=== PATIENT | female | born 1950 | race Caucasian/White ===

== ENCOUNTER 2016-06-02 09:40 | Inpatient (IN) | payer OTHER ==
[2016-06-02 09:54] VITALS: BMI 20.9
--- NOTE | 2016-06-02 10:21 | PDOC ---
History of Present Illness - General History Source: Patient Exam Limitations: No Limitations - History of Present Illness Initial Comments: 06/02/16 10:51 The patient is a 66 year old female with a significant past medical history of hypertension, gastric ulcer, H. pylori, atrial fibrillation, chronic diastolic heart failure, anemia, who presents to the ER with a productive cough and shortness of breath today. The patient visited the ED on Wednesday 05/30 for cough, fever, and body aches and was admitted for observation. The patient received duonebs, vancomycin, and solumedrol. Patient was found to be improved on 05/31 and was discharged. The patient visited Dr. Ramirez office today with the complaint of productive cough and sob and was told to report to the ED for further evaluation. The patient states that she has was coughing throughout the night and bringing up sputum. She also reports vomiting last night and bringing up sputum. She states that her head begins to hurt and her heart begins to race with excessive coughing. The patient reports chills. The patient denies any abdominal pain or chest pain. PCP: Dr. Vargas Social Hx: The patient denies any tobacco use. Surgical Hx: hernia repair <Sakshi Edgar - Last Filed: 06/02/16 11:04> - General History Source: Patient, Old Records Exam Limitations: No Limitations <Azra Gaines - Last Filed: 06/02/16 12:43> - General Chief Complaint: Weakness Stated Complaint: COUGH, SOB Time Seen by Provider: 06/02/16 10:03 Past History <Sakshi Edgar - Last Filed: 06/02/16 11:04> - Past Medical History Anemia: Yes Cardiac Disorders: Yes (Irregular Heart beat) HTN: Yes - Surgical History Abdominal Surgery: Yes (hernia) Cardiac Surgery: Yes (cardiac cath) - Immunization History Immunization Up to Date: No - Psycho/Social/Smoking Cessation Hx Anxiety: No Suicidal Ideation: No Smoking History: Never smoked Have you smoked in the past 12 months: No Number of Cigarettes Smoked Daily: 0 Information on smoking cessation initiated: No Hx Alcohol Use: No Drug/Substance Use Hx: No Substance Use Type: None Hx Substance Use Treatment: No <Azra Gaines - Last Filed: 06/02/16 12:43> - Past Medical History Allergies/Adverse Reactions: Allergies Allergy/AdvReac Type Severity Reaction Status Date / Time Penicillins Allergy Verified 06/02/16 09:55 Home Medications: Ambulatory Orders Furosemide [Lasix -] 20 mg PO DAILY #30 tablet 07/27/15 Metoprolol Succinate [Toprol XL -] 25 mg PO DAILY 11/20/15 Azithromycin 250 mg PO DAILY #5 tablet 05/31/16 Review of Systems - Review of Systems Able to Perform ROS?: Yes Comments:: 06/02/16 10:52 CONSTITUTIONAL: Present: chills Absent: fever, diaphoresis, generalized weakness, malaise, loss of appetite. HEENT: Absent: rhinorrhea, nasal congestion, throat pain, throat swelling, difficulty swallowing, mouth swelling, ear pain, eye pain, visual Changes CARDIOVASCULAR: Absent: chest pain, syncope, palpitations, irregular heart rate, lightheadedness , peripheral edema RESPIRATORY: Present: productive cough, shortness of breath. Absent: dyspnea with exertion, orthopnea, stridor, hemoptysis GASTROINTESTINAL: Absent: abdominal pain, abdominal distension, nausea, vomiting, diarrhea, constipation, melena, hematochezia GENITOURINARY: Absent: dysuria, frequency, urgency, hesitancy, hematuria, flank pain, genital pain MUSCULOSKELETAL: Absent: myalgia, arthralgia, joint swelling SKIN: Absent: rash, itching, pallor HEMATOLOGIC/IMMUNOLOGIC: Absent: easy bleeding, easy bruising, lymphadenopathy, frequent infections ENDOCRINE: Absent: unexplained weight gain, unexplained weight loss, heat intolerance, cold intolerance NEUROLOGIC: Present: headache. Absent: focal weakness or paresthesias, dizziness, unsteady gait, seizure, mental status changes, bladder or bowel incontinence PSYCHIATRIC: Absent: anxiety, depression, suicidal or homicidal ideation, hallucinations. <Sakshi Edgar - Last Filed: 06/02/16 11:04> *Physical Exam - Vital Signs Last Vital Signs Temp Pulse Resp BP Pulse Ox 99.7 F H 106 H 18 98/53 97 06/02/16 09:51 06/02/16 09:51 06/02/16 09:51 06/02/16 09:51 06/02/16 09:51 - Physical Exam Comments: 06/02/16 10:55 GENERAL: Well developed, well nourished. Awake and alert. No acute distress. HEENT: Normocephalic, atraumatic. PERRLA, EOMI. No conjunctival pallor. Sclera are non- icteric. Moist mucous membranes. Oropharynx is clear. NECK: Supple. Full ROM. No JVD. Carotid pulses 2+ and symmetric, without bruits. No thyromegaly. No lymphadenopathy. CARDIOVASCULAR: No murmurs, rubs, or gallops. Distal pulses are 2+ and symmetric. (+)Heart is irregular. PULMONARY: No rhonchi. (+)Crackles heard well throughout left lung base, wheezing. ABDOMINAL: Soft. Non-tender. Non-distended. No rebound or guarding. No organomegaly. Normoactive bowel sounds. MUSCULOSKELETAL Normal range of motion at all joints. No bony deformities or tenderness. No CVA tenderness. EXTREMITIES: No cyanosis. No clubbing. No edema. No calf tenderness. SKIN: Warm and dry. Normal capillary refill. No rashes. No jaundice. NEUROLOGICAL: Alert, awake, appropriate. Cranial nerves 2-12 intact. No deficits to light touch and temperature in face, upper extremities and lower extremities. No motor deficits in the in face, upper extremities and lower extremities. Normoreflexic in the upper and lower extremities. Normal speech. Toes are down- going bilaterally. Gait is normal without ataxia. PSYCHIATRIC: Cooperative. Good eye contact. Appropriate mood and affect. <Sakshi Edgar - Last Filed: 06/02/16 11:04> - Vital Signs Last Vital Signs Temp Pulse Resp BP Pulse Ox 99.7 F H 106 H 18 98/53 97 06/02/16 09:51 06/02/16 09:51 06/02/16 09:51 06/02/16 09:51 06/02/16 09:51 <Azra Gaines - Last Filed: 06/02/16 12:43> ED Treatment Course - LABORATORY CBC & Chemistry Diagram: 06/02/16 10:55 06/02/16 10:55 <Sakshi Edgar - Last Filed: 06/02/16 11:04> - LABORATORY CBC & Chemistry Diagram: 06/02/16 10:55 06/02/16 10:55 <Azra Gaines - Last Filed: 06/02/16 12:43> Medical Decision Making - Medical Decision Making 06/02/16 10:30 66-year-old female with history of hypertension, atrial fibrillation, GI bleed when on Eliquis so not currently on any anticoagulation who was admitted to observation at [facility] 3 days ago with cough and shortness of breath found to have reactive airway disease and discharged on a Z-Lul for presents to the emergency department today with continued cough and difficulty breathing as well as fever at home. She is in A. fib with rapid ventricular rate of 117 and has crackles at the left lung base with diffuse expiratory wheezes Differential diagnosis includes but is not limited to: Pneumonia, reactive airway disease, CHF, ACS, sepsis, dehydration, electrolyte abnormality, toxic/metabolic derangement, anemia Plan: 1. Labs 2. EKG 3. Chest x-ray 4. Rate control 5. Pancultured 6. Antibiotics 7. Observe and reevaluate; the patient will likely need inpatient admission for failed outpatient treatment 06/02/16 12:40 Addendum: Chest x-ray was read as unchanged from prior; on my review I find that the patient has diffuse alveolar infiltrates and questionable right middle lobe infiltrate. Labs are notable for an elevated troponin as well as a progressively worsening BNP as compared to the patient's visit on May 31. The patient has been cultured, and has been ordered Levaquin for failed outpatient treatment of pneumonia. She has also received DuoNeb treatments. I have also ordered Lasix 40 mg IV. Will admit for inpatient treatment. The case was discussed with Dr. Vargas. <Azra Gaines - Last Filed: 06/02/16 12:43> *DC/Admit/Observation/Transfer - Attestations Scribe Attestion: 06/02/16 11:03 Documentation prepared by Sakshi Edgar, acting as medical record librarian for Azra Gaines MD. <Sakshi Edgar - Last Filed: 06/02/16 11:04> - Discharge Dispostion Admit: Yes - Attestations Physician Attestion: 06/02/16 10:33 I, Dr. Azra Gaines, attest that the scribes documentation that appears above has been prepared under my direction and personally reviewed by me in its entirety. I confirmed that the note above accurately reflects all work, treatment, procedures, and medical decision-making performed by me. <Azra Gaines - Last Filed: 06/02/16 12:43> Diagnosis at time of Disposition: SOB (shortness of breath), Atrial fibrillation, CHF (congestive heart failure) , Community acquired bacterial pneumonia - Discharge Dispostion Condition at time of disposition: Stable - Referrals Referrals: Cayetano Vargas MD [Primary Care Provider] -
[2016-06-02] MEDS ORDERED: IPRATROPIUM BR 0.02% 0.5 MG/2.5 ML VIAL.NEB. NEB ONE (10:26)
[2016-06-02] MEDS ORDERED: ALBUTEROL SO4 0.083% IH SOL 2.5 MG/3 ML VIAL.NEB. NEB ONE (10:26)
[2016-06-02 11:08] LABS: BASOPHIL 0.7 % (0-2.0); MCH 22.1 pg (25.7-33.7); MCHC 30.7 g/dl (32.0-36.0); MEAN CELL VOLUME 72.1 fl (80-96); MEAN PLT VOLUME 7.6 fl (7.5-11.1); NEUTROPHILS 78.3 % (42.8-82.8); PLATELET COUNT 186 K/MM3 (134-434)
[2016-06-02 11:29] LABS: ALBUMIN 3.5 g/dl (3.4-5.0); BILIRUBIN,TOTAL 1.1 mg/dL (0.2-1.0); CALCIUM 8.6 mg/dL (8.5-10.1)
[2016-06-02 11:33] LABS: TOT PROT 7.1 g/dl (6.4-8.2); TROPONIN I 0.05 ng/ml (0.00-0.05)
[2016-06-02] MEDS ORDERED: ACETAMINOPHEN 500 MG TABLET (FP) PO ONE (11:35)
[2016-06-02] MEDS ORDERED: ACETAMINOPHEN 325 MG TABLET (FP) ONE (12:00)
[2016-06-02] MEDS ORDERED: LEVOFLOXACIN 750 MG IVPB 150 ML IVPB ONE (12:31)
[2016-06-02] MEDS ORDERED: FUROSEMIDE 40 MG/4 ML INJECTABLE VIAL IVPUSH ONE (12:37)
[2016-06-02] MEDS ORDERED: FUROSEMIDE 40 MG/4 ML INJECTABLE VIAL ONE (12:50)
[2016-06-02] MEDS ORDERED: LEVOFLOXACIN 500 MG IVPB 100 ML IVPB ONE (12:52)
[2016-06-02] MEDS ORDERED: LEVOFLOXACIN 250 MG IVPB 50 ML IVPB ONE (12:52)
--- NOTE | 2016-06-02 14:02 | HP ---
CHIEF COMPLAINT: Cough PCP: Dr Vargas HISTORY OF PRESENT ILLNESS: 66 year old female with pmh of HTN, AFib, diatolic CHF, anemia presented to the ED with c/o cough. the symptoms started on Wednesday with fever, cough and body ache, pt came to ED and was placed on observation and then discharged the next day after improving with a Zpack. Today the symptoms worsened with cough fever with white phlegm, shortness of breath, low grade fever, chills. Pt denies orthopnea, dyspnea on exertion, n/v, palpitation, dizziness, chest pain, diaphoresis, no leg swelling, no recent immobilization or surgery , no generalized, weakness, no rinnhorrhea, no myalgia or arthalgia. ER course was notable for: (1) [place] Recent Travel: none PAST MEDICAL HISTORY: HTN (Pt denies h/o HTN, Toprol XL is for the AFIB according to the patient), AFib pt was on Eliquis which was stopped after GI bleed, epitaxis, anemia ; diastolic CHF, anemia, Gastric ulcer, HPILori PAST SURGICAL HISTORY: 2 miscarriages with D&C Social History: Smoking: denies Alcohol:denies Drugs: denies Family History: none Allergies Penicillins Allergy (Verified 06/02/16 09:55) HOME MEDICATIONS: Medication Instructions Recorded Furosemide [Lasix -] 20 mg PO DAILY #30 tablet 07/27/15 Metoprolol Succinate [Toprol XL -] 25 mg PO DAILY 11/20/15 Azithromycin 250 mg PO DAILY #5 tablet 05/31/16 REVIEW OF SYSTEMS CONSTITUTIONAL: fever, chills, Absent: , diaphoresis, generalized weakness, malaise, loss of appetite, weight change HEENT: Absent: rhinorrhea, nasal congestion, throat pain, throat swelling, difficulty swallowing, mouth swelling, ear pain, eye pain, visual changes CARDIOVASCULAR: irregular heart rate,peripheral edema Absent: chest pain, syncope, palpitations, lightheadedness RESPIRATORY: cough, shortness of breath, Absent: dyspnea with exertion, orthopnea, wheezing, stridor, hemoptysis GASTROINTESTINAL: Absent: abdominal pain, abdominal distension, nausea, vomiting, diarrhea, constipation, melena, hematochezia GENITOURINARY: Absent: dysuria, frequency, urgency, hesitancy, hematuria, flank pain, genital pain MUSCULOSKELETAL: Absent: myalgia, arthralgia, joint swelling, back pain, neck pain SKIN: Absent: rash, itching, pallor HEMATOLOGIC/IMMUNOLOGIC: Absent: easy bleeding, easy bruising, lymphadenopathy, frequent infections ENDOCRINE: Absent: unexplained weight gain, unexplained weight loss, heat intolerance, cold intolerance NEUROLOGIC: Absent: headache, focal weakness or paresthesias, dizziness, unsteady gait, seizure, mental status changes, bladder or bowel incontinence PSYCHIATRIC: Absent: anxiety, depression, suicidal or homicidal ideation, hallucinations. PHYSICAL EXAMINATION GENERAL: Awake, alert, and fully oriented, in no acute distress. HEAD: Normal with no signs of trauma. EYES: Pupils equal, round and reactive to light, extraocular movements intact, sclera anicteric, conjunctiva clear. No lid lag. EARS, NOSE, THROAT: Ears normal, nares patent, oropharynx clear without exudates. Moist mucous membranes. NECK: Normal range of motion, supple without lymphadenopathy, or masses. Positive JVD, positive hepatojugular reflux LUNGS: b/l crackles to auscultation bilaterally. No accessory muscle use. HEART: irregular rate and rhythm, S1 and S2 with sustolic 2/6 murmur, rub or gallop. ABDOMEN: Soft, nontender, not distended, normoactive bowel sounds, no guarding, no rebound, no masses. No hepatomegaly or splenomegaly. MUSCULOSKELETAL: Normal range of motion at all joints. No bony deformities or tenderness. No CVA tenderness. UPPER EXTREMITIES: 2+ pulses, warm, well-perfused. No cyanosis. No clubbing. Cap refill <2 seconds. No peripheral edema. LOWER EXTREMITIES: 2+ pulses, warm, well-perfused. No calf tenderness. No peripheral edema. NEUROLOGICAL: Cranial nerves II-XII intact. Normal speech. Normal gait. PSYCHIATRIC: Cooperative. Good eye contact. Appropriate mood and affect. SKIN: Warm, dry, normal turgor, no rashes or lesions noted. EKg: AFIB w PVC, Poor R wave progression, QTC 471ms CXR: CBC, BMP 06/02/16 10:55 06/02/16 10:55 Since the prior study of 05/31/2016, again noted is the large heart with unfolded aorta, prominent shira and congestive changes. Discrete infiltrate is not seen. If findings do not resolve then further imaging with CT may be of help ASSESSMENT/PLAN: 66 year old femole with pmh of Anemia, HTN, AFIB on Toprol XL but no anticoagulant, Diastolic CHF present with cough, low grade fever, shortness of breath, possible infiltrates in right middle lobe, rapid AFIB, elevated BNP, diffuse crackles in b/l lung. CHF exacerbation, diastolic Received lasix 40mg in ED Started on LAsix 40mg IV BID O2 prn CXR in am Echo cardiology consult Dr Leigh r/o Pneumonia vs Bonchitis received levaquin in ED Started levaquin 700mg IV qd urine for pneumonia antigen CXR in am AFIB w RVR Not on anticoagulant due to prior GI bleed and anemia On Toprol XL Microcytic Anemia likely Iron deficiency Anemia Hbg 8.8 Monitor CBC HTN On Toprol XL CKD Monitor bun, cr monitor intake and output on Lasix FEN Fluid: none Electrolytes: Chemistry in am Nutrition: Low sodium diet Prophylaxis DVT: SCD, consider Lovenox Visit type - Emergency Visit Emergency Visit: Yes ED Registration Date: 06/02/16 Care time: The patient presented to the Emergency Department on the above date and was hospitalized for further evaluation of their emergent condition. - New Patient This patient is new to me today: Yes Date on this admission: 06/02/16 - Critical Care Critical Care patient: No
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
--- NOTE | 2016-06-02 16:17 | PN ---
Teaching Attending Note Name of Resident: Roshan Rincon ATTENDING PHYSICIAN STATEMENT I saw and evaluated the patient. I reviewed the resident's note and discussed the case with the resident. I agree with the resident's findings and plan as documented. SUBJECTIVE: This is a 66-year-old woman with a history of CAD, HTN, gastric ulcer, H. pylori, atrial fibrillation, chronic diastolic heart failure, anemia, who presents to the ER complaining of shortness of breath and productive cough. She had been seen in the ED on 05/31 for cough, fever, and body aches. She was treated with SoluMedrol, Levaquin and DuoNeb. She was discharged on Zithromax. She was advised by her PCP, Dr. Vargas, to return to the ER today. OBJECTIVE: Last Vital Signs Temp Pulse Resp BP Pulse Ox 100.9 F H 99 H 20 98/53 97 06/02/16 10:25 06/02/16 10:25 06/02/16 10:25 06/02/16 09:51 06/02/16 09:51 HEART: Irregularly irregular, tachycardic, (+) 3/6 systolic murmur LUNGS: Bilateral rales and wheezes ABDOMEN: Soft, non-tender, non-distended, normal BS EXTREMITIES: No edema ASSESSMENT AND PLAN: This is a 66-year-old woman with a history of HTN, gastric ulcer, H. pylori, atrial fibrillation, chronic diastolic heart failure, anemia who came to the ER on 05/31 with fever, cough, body aches. She was diagnosed with URI and possible pneumonia, treated with Levaquin, SoluMedrol, DuoNeb and discharged on Zithromax. She returns today with the same complaints and worse shortness of breath. Chest x-ray shows cardiomegaly and congestive changes. 1. Acute on chronic diastolic heart failure - Lasix IV - Monitor intake and output, weight - Repeat CXR in AM - Echocardiogram 2. Acute bronchitis, possible pneumonia - Levaquin, DuoNeb 3. Permanent atrial fibrillation - Continue Toprol XL - Not on anticoagulation secondary to previous GI bleed/AVMs 4. CAD - Monitor on telemetry - Serial troponins - Nuclear stress in Feb 2016 showed poor exercise capacity, moderate area of mild septal ischemia - Continue Toprol XL 5. Hypertension - Continue Toprol XL 6. Iron-deficiency anemia - Hemoglobin stable - Monitor hemoglobin
[2016-06-02] MEDS: FUROSEMIDE 40 MG/4 ML INJECTABLE VIAL IVPUSH SCH (16:33)
[2016-06-02 21:49] LABS: URINE APPEARANCE CLEAR; URINE BILIRUBIN NEGATIVE (NEGATIVE); URINE COLOR STRAW; URINE GLUCOSE (UA) NEGATIVE (NEGATIVE); URINE KETONE NEGATIVE (NEGATIVE); URINE LEUK ESTERASE NEGATIVE (NEGATIVE); URINE NITRITE NEGATIVE (NEGATIVE); URINE PROTEIN NEGATIVE (NEGATIVE); URINE UROBILINOGEN NEGATIVE E.U./dl (0.2-1.0)
[2016-06-02 21:53] LABS: URINE BLOOD 1+ (NEGATIVE)
[2016-06-02 21:56] LABS: URINE RBC 5 /hpf (0-3)
[2016-06-02 21:58] LABS: TROPONIN I 0.02 ng/ml (0.00-0.05)
[2016-06-03] MEDS: FUROSEMIDE 40 MG/4 ML INJECTABLE VIAL IVPUSH SCH ×2 (06:00→16:33)
[2016-06-03 07:41] LABS: MCH 22.1 pg (25.7-33.7); MCHC 30.8 g/dl (32.0-36.0); MEAN CELL VOLUME 71.8 fl (80-96); MEAN PLT VOLUME 7.7 fl (7.5-11.1); PLATELET COUNT 167 K/MM3 (134-434); RDW 21.6 % (11.6-15.6); WHITE BLOOD COUNT 3.5 K/mm3 (4.0-10.0)
[2016-06-03] MEDS ORDERED: METOPROLOL TARTRATE 5 MG/5 ML VIAL IVPUSH ONE (07:43)
[2016-06-03] MEDS ORDERED: METOPROLOL SUCCINATE 25 MG TAB.SR.24H (FP) ONE ×2 (07:47→17:51)
[2016-06-03] MEDS: METOPROLOL SUCCINATE 25 MG TAB.SR.24H (FP) PO SCH ×2 (07:56→09:41)
[2016-06-03 07:57] LABS: INR 1.31 (0.82-1.09); PROTHROMBIN TIME (PATIENT) 14.5 SEC (9.98-11.88)
[2016-06-03 08:04] LABS: CALCIUM 8.2 mg/dL (8.5-10.1); MAGNESIUM 1.9 mg/dL (1.8-2.4)
[2016-06-03 08:18] LABS: CREATININE 0.8 mg/dL (0.55-1.02); THYROID STIMULATING HORMONE 2.51 uIU/ml (0.358-3.74); TROPONIN I 0.02 ng/ml (0.00-0.05)
[2016-06-03 09:58] LABS: ANISOCYTOSIS 2+; HYPOCHROMIA 1+; MICROCYTOSIS 1+; OVALOCYTES 1+; POIKILOCYTOSIS 1+
[2016-06-03 10:00] LABS: POLYCHROMASIA 1+
--- NOTE | 2016-06-03 17:05 | EKG ---
Test Reason : Blood Pressure : / mmHG Vent. Rate : 109 BPM Atrial Rate : 107 BPM P-R Int : 000 ms QRS Dur : 082 ms QT Int : 350 ms P-R-T Axes : 000 132 087 degrees QTc Int : 471 ms ATRIAL FIBRILLATION WITH RAPID VENTRICULAR RESPONSE RIGHT AXIS DEVIATION ABNORMAL ECG WHEN COMPARED WITH ECG OF 31-MAY-2016 16:36, QUESTIONABLE CHANGE IN QRS AXIS NONSPECIFIC T WAVE ABNORMALITY NO LONGER EVIDENT IN INFERIOR LEADS Confirmed by ILIANA PINA MD ([id number]) on 06/03/2016 5:05:25 PM Referred By: Overread By: ILIANA PINA MD
[2016-06-03] MEDS ORDERED: METOPROLOL TARTRATE 25 MG TABLET (FP) PO ONE (17:48)
--- NOTE | 2016-06-03 17:51 | PN ---
Physical Exam: SUBJECTIVE: Patient seen and examined pt is feeling comfortable now Had one episode of palpitation and shortness of breath this morning which resume with metoprol IV and PO Pt had another episode this afternoon which resolved spontaneously No fever, chills, no n/v Pt has moderate cough with white sputum OBJECTIVE: Vital Signs Period Temp Pulse Resp BP Sys/Hinojosa Pulse Ox Last 24 Hr 98 F-99.5 F 90-156 18-20 100-121/54-65 98-100 GENERAL: Awake, alert, and fully oriented, in no acute distress. HEAD: Normal with no signs of trauma. EARS, NOSE, THROAT: Ears normal, nares patent, oropharynx clear without exudates. Moist mucous membranes. NECK: Normal range of motion, supple without lymphadenopathy, or masses. Positive JVD, positive hepatojugular reflux LUNGS: b/l crackles to auscultation bilaterally. No accessory muscle use. HEART: irregular rate and rhythm, S1 and S2 with sustolic 2/6 murmur, rub or gallop. ABDOMEN: Soft, nontender, not distended, normoactive bowel sounds, no guarding, no rebound, no masses. No hepatomegaly or splenomegaly. MUSCULOSKELETAL: Normal range of motion at all joints. No bony deformities or tenderness. No CVA tenderness. UPPER EXTREMITIES: 2+ pulses, warm, well-perfused. No cyanosis. No clubbing. Cap refill <2 seconds. No peripheral edema. LOWER EXTREMITIES: 2+ pulses, warm, well-perfused. No calf tenderness. No peripheral edema. NEUROLOGICAL: Normal speech. Normal gait. PSYCHIATRIC: Cooperative. Good eye contact. Appropriate mood and affect. SKIN: Warm, dry, normal turgor, no rashes or lesions noted. Laboratory Results - last 24 hr 06/02/16 06/02/16 06/03/16 19:20 20:51 05:35 WBC 3.5 L D RBC 4.07 Hgb 9.0 L Hct 29.2 L MCV 71.8 L MCHC 30.8 L RDW 21.6 H Plt Count 167 MPV 7.7 Polychromasia 1+ Hypochromic-Microcytic 1+ Poikilocytosis 1+ Anisocytosis 2+ Microcytosis 1+ Macrocytosis 1+ Ovalocytes 1+ Morphology Comment Slide scanned INR PTT (Actin FS) Sodium Potassium Chloride Carbon Dioxide Anion Gap BUN Creatinine Random Glucose Hemoglobin A1c % Calcium Phosphorus Magnesium Creatine Kinase 115 Troponin I 0.02 Triglycerides Cholesterol Total LDL Cholesterol HDL Cholesterol TSH Urine Color Straw Urine Appearance Clear Urine pH 6.0 D Ur Specific [place] 1.005 Urine Protein Negative Urine Glucose (UA) Negative Urine Ketones Negative Urine Blood 1+ H Urine Nitrite Negative Urine Bilirubin Negative Urine Urobilinogen Negative Ur Leukocyte Esterase Negative Urine RBC 5 Urine WBC None 06/03/16 06/03/16 06/03/16 05:35 05:35 05:35 WBC RBC Hgb Hct MCV MCHC RDW Plt Count MPV Polychromasia Hypochromic-Microcytic Poikilocytosis Anisocytosis Microcytosis Macrocytosis Ovalocytes Morphology Comment INR 1.31 H PTT (Actin FS) Sodium 137 Potassium 3.5 Chloride 102 Carbon Dioxide 26 Anion Gap 9 BUN 13 Creatinine 0.8 Random Glucose 91 Hemoglobin A1c % 4.7 L Calcium 8.2 L Phosphorus 3.0 Magnesium 1.9 Creatine Kinase 74 Troponin I 0.02 Triglycerides 67 D Cholesterol 110 Total LDL Cholesterol 63 HDL Cholesterol 45 TSH 2.51 D Urine Color Urine Appearance Urine pH Ur Specific [place] Urine Protein Urine Glucose (UA) Urine Ketones Urine Blood Urine Nitrite Urine Bilirubin Urine Urobilinogen Ur Leukocyte Esterase Urine RBC Urine WBC 06/03/16 05:35 WBC RBC Hgb Hct MCV MCHC RDW Plt Count MPV Polychromasia Hypochromic-Microcytic Poikilocytosis Anisocytosis Microcytosis Macrocytosis Ovalocytes Morphology Comment INR PTT (Actin FS) 32.5 Sodium Potassium Chloride Carbon Dioxide Anion Gap BUN Creatinine Random Glucose Hemoglobin A1c % Calcium Phosphorus Magnesium Creatine Kinase Troponin I Triglycerides Cholesterol Total LDL Cholesterol HDL Cholesterol TSH Urine Color Urine Appearance Urine pH Ur Specific [place] Urine Protein Urine Glucose (UA) Urine Ketones Urine Blood Urine Nitrite Urine Bilirubin Urine Urobilinogen Ur Leukocyte Esterase Urine RBC Urine WBC Active Medications Generic Name Dose Route Start Last Admin Trade Name Freq PRN Reason Stop Dose Admin Albuterol/Ipratropium 1 amp 06/02/16 14:56 Duoneb - NEB Q4H PRN SHORTNESS OF BREATH Furosemide 40 mg 06/02/16 16:00 06/03/16 16:33 Lasix Injection - IVPUSH 40 mg BID@0600,1600 [facility] Administration Levofloxacin 150 mls @ 100 mls/hr 06/04/16 10:00 Levaquin 750 Mg Premixed Ivpb - IVPB Q2D@1000 BR[facility] Metoprolol Succinate 50 mg 06/04/16 10:00 Toprol Xl - PO DAILY [facility] Metoprolol Tartrate 25 mg 06/03/16 17:48 Lopressor - PO 06/03/16 17:49 ONCE ONE CBC, BMP 06/03/16 05:35 06/03/16 05:35 CXR 06/02/16: Since the prior study of 05/31/2016, again noted is the large heart with unfolded aorta, prominent shira and congestive changes. Discrete infiltrate is not seen. If findings do not resolve then further imaging with CT may be of help ASSESSMENT/PLAN: 66 year old femole with pmh of Anemia, HTN, AFIB on Toprol XL but no anticoagulant, Diastolic CHF present with cough, low grade fever, shortness of breath, possible infiltrates in right middle lobe, rapid AFIB, elevated BNP, diffuse crackles in b/l lung. CHF exacerbation, diastolic Received lasix 40mg in ED on LAsix 40mg IV BID O2 prn CXR in am Echo pending result intake and output Daily weight cardiology consult Dr Liegh r/o Pneumonia vs Bonchitis received levaquin in ED Started levaquin 700mg IV QOd urine for pneumonia antigen pending AFIB w RVR Not on anticoagulant due to prior GI bleed and anemia Multiple episodes of tachycardia HR 140's 150's Received Lopressor 5 IV once this morning Will increase dose of Toprol Xl in AM to 50mg po since pt continue to have recurrent tachyarrhythmia Metoprolol 25mg once now On Toprol XL 50 po daily starting in am Close Monitoring of BP Microcytic Anemia likely Iron deficiency Anemia Hbg 9 Monitor CBC prior iron studies with low iron, low ferritin and high/normal TIBC HTN On Toprol XL CKD Monitor bun, cr monitor intake and output on Lasix FEN Fluid: none Electrolytes: Chemistry in am Nutrition: Low sodium diet Prophylaxis DVT: SCD, Lovenox SQ Visit type - Emergency Visit Emergency Visit: Yes ED Registration Date: 06/02/16 Care time: The patient presented to the Emergency Department on the above date and was hospitalized for further evaluation of their emergent condition. - New Patient This patient is new to me today: No - Critical Care Critical Care patient: No
--- NOTE | 2016-06-03 19:21 | PN ---
Teaching Attending Note Name of Resident: Roshan Rincon ATTENDING PHYSICIAN STATEMENT I saw and evaluated the patient. I reviewed the resident's note and discussed the case with the resident. I agree with the resident's findings and plan as documented. SUBJECTIVE: no fever or chills, feels better . had palpitations this Am. OBJECTIVE: NAD CV : irreg irreg . 3/6 SM at [facility] LUngs : CTAB ext : no edema ASSESSMENT AND PLAN: 66 y/o lady with h/o HTN, AFib, diatolic CHF, who presneted with palpitations and SOB . she was found to have acute D CHF and RVR 1- Afib with RVR . received IV pushes this am . currently still HR not controlled. ( 140s , 150s ) - give 25 mg of lopressor po - increase am toprol to 50 mg - monitor BP . - echo reviewed. small pericardial effusion - not on AC due to previous GI bleed, she understands that CHADSVACS score of at least 4 with high risk for stroke 2- acute D CHF . due to A fib with RVR . - cont IV lasix BID 3- recent URI , now fever , possible R LL infiltrate . day 2 of levaquin. will cont for 3 more days for possible PNA dispo : HLOC
[2016-06-04] MEDS: FUROSEMIDE 40 MG/4 ML INJECTABLE VIAL IVPUSH SCH ×2 (06:10→17:04)
[2016-06-04 08:35] LABS: CALCIUM 8.4 mg/dL (8.5-10.1)
[2016-06-04 08:38] LABS: CREATININE 0.9 mg/dL (0.55-1.02); PHOSPHOROUS 3.6 mg/dL (2.5-4.9)
[2016-06-04] MEDS: LEVOFLOXACIN 750 MG IVPB 150 ML IVPB SCH (09:45)
[2016-06-04] MEDS: POTASSIUM CHLORIDE 40 MEQ/30 ML UNIT DOSE CUP PO SCH ×2 (09:46→22:32)
[2016-06-04] MEDS ORDERED: DIGOXIN 0.5 MG/2 ML AMPUL IVPUSH ONE ×3 (09:59→22:00)
[2016-06-04] MEDS ORDERED: METOPROLOL SUCCINATE 25 MG TAB.SR.24H (FP) PO SCH (10:00)
[2016-06-04] MEDS ORDERED: METOPROLOL SUCCINATE 50 MG TAB.SR.24H (FP) PO SCH (10:00)
--- NOTE | 2016-06-04 15:46 | EKG ---
Test Reason : Blood Pressure : / mmHG Vent. Rate : 071 BPM Atrial Rate : 053 BPM P-R Int : 000 ms QRS Dur : 080 ms QT Int : 398 ms P-R-T Axes : 000 125 092 degrees QTc Int : 432 ms ATRIAL FIBRILLATION WITH PREMATURE VENTRICULAR OR ABERRANTLY CONDUCTED COMPLEXES LEFT POSTERIOR FASCICULAR BLOCK NONSPECIFIC ST AND T WAVE ABNORMALITY , PROBABLY DIGITALIS EFFECT ABNORMAL ECG WHEN COMPARED WITH ECG OF 03-JUN-2016 07:47, VENT. RATE HAS DECREASED BY 38 BPM Confirmed by AXEL VAUGHAN MD ([id number]) on 06/04/2016 3:46:41 PM Referred By: MANDO BECERRA Overread By: AXEL VAUGHAN MD
--- NOTE | 2016-06-04 16:25 | PN ---
Teaching Attending Note Name of Resident: Roshan Rincon ATTENDING PHYSICIAN STATEMENT I saw and evaluated the patient. I reviewed the resident's note and discussed the case with the resident. I agree with the resident's findings and plan as documented. SUBJECTIVE: feels better today , No SOB . cough . has no PC . OBJECTIVE: NAD , pleasant and cooperative CV: irreg irreg . 3/6 SM at [facility] Lungs: bilateral crackles Ext: no edema ASSESSMENT AND PLAN: 66 y/o lady with h/o HTN, AFib, diatolic CHF, who presneted with palpitations and SOB . she was found to have acute D CHF and RVR 1- Afib with RVR . Rate ws still uncontrolled at time of evaluation with borderline BP - load with digoxin, then daily 0125 mg - decrease toprol from 50 mg to 25 mg - monitor BP - not on AC due to previous GI bleed, she understands that CHADSVACS score of at least 4 with high risk for stroke 2- Acute D CHF . due to A fib with RVR . - cont IV lasix BID. as she still has significan crackles. will reevaluate tomorrow for switch to po 3- Possible R LL infiltrate . day 3/5 of levaquin. dispo : HLOC i
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
--- NOTE | 2016-06-04 18:52 | PN ---
Physical Exam: SUBJECTIVE: Patient seen and examined Pt has an episode of lightness with hypotension no chest pain, palpitation, nausea, vomiting no fever, chills, cough. OBJECTIVE: Vital Signs Period Temp Pulse Resp BP Sys/Hinojosa Pulse Ox Last 24 Hr 98 F-100 F 75-98 18-22 83-101/46-66 98-99 GENERAL: Awake, alert, and fully oriented, in no acute distress. HEAD: Normal with no signs of trauma. EARS, NOSE, THROAT: Ears normal, nares patent, oropharynx clear without exudates. Moist mucous membranes. NECK: Normal range of motion, supple without lymphadenopathy, or masses. Positive JVD, positive hepatojugular reflux LUNGS: slight improvement with b/l crackles to auscultation bilaterally. No accessory muscle use. HEART: irregular rate and rhythm, S1 and S2 with sustolic 2/6 murmur, rub or gallop. ABDOMEN: Soft, nontender, not distended, normoactive bowel sounds, no guarding, no rebound, no masses. No hepatomegaly or splenomegaly. MUSCULOSKELETAL: Normal range of motion at all joints. No bony deformities or tenderness. No CVA tenderness. UPPER EXTREMITIES: 2+ pulses, warm, well-perfused. No cyanosis. No clubbing. Cap refill <2 seconds. No peripheral edema. LOWER EXTREMITIES: 2+ pulses, warm, well-perfused. No calf tenderness. No peripheral edema. NEUROLOGICAL: Normal speech. Normal gait. PSYCHIATRIC: Cooperative. Good eye contact. Appropriate mood and affect. SKIN: Warm, dry, normal turgor, no rashes or lesions noted. Laboratory Results - last 24 hr 06/04/16 06/04/16 06:00 15:53 Sodium 132 L Potassium 3.2 L Chloride 99 Carbon Dioxide 29 Anion Gap 4 L BUN 11 Creatinine 0.9 POC Glucometer 108 Random Glucose 104 Calcium 8.4 L Phosphorus 3.6 Magnesium 2.0 Active Medications Generic Name Dose Route Start Last Admin Trade Name Freq PRN Reason Stop Dose Admin Albuterol/Ipratropium 1 amp 06/02/16 14:56 Duoneb - NEB Q4H PRN SHORTNESS OF BREATH Digoxin 0.125 mg 06/05/16 10:00 Lanoxin - PO DAILY [facility] Digoxin 0.25 mg 06/04/16 22:00 Lanoxin Injection - IVPUSH 06/04/16 22:01 ONCE ONE Furosemide 40 mg 06/02/16 16:00 06/04/16 17:04 Lasix Injection - IVPUSH Not Given BID@0600,1600 [facility] Levofloxacin 150 mls @ 100 mls/hr 06/04/16 10:00 06/04/16 09:45 Levaquin 750 Mg Premixed Ivpb - IVPB 100 mls/hr Q2D@1000 [facility] Administration Metoprolol Succinate 25 mg 06/05/16 10:00 Toprol Xl - PO DAILY [facility] Potassium Chloride 40 meq 06/04/16 10:00 06/04/16 09:46 Kcl Oral Solution - PO 06/04/16 22:01 40 meq BID BR[facility]ANY Administration CBC, BMP 06/03/16 05:35 06/04/16 06:00 CXR 06/02/16: Since the prior study of 05/31/2016, again noted is the large heart with unfolded aorta, prominent shira and congestive changes. Discrete infiltrate is not seen. If findings do not resolve then further imaging with CT may be of help Echo; LV size, function normal, mild concentric LVH, no wall motion abnormality , RA, LA mildly dilated, moderate to severe TR, RVSP 40-50mghg, Mild pulm HTN ASSESSMENT/PLAN: 66 year old female with pmh of Anemia, HTN, AFIB on Toprol XL but no anticoagulant, Diastolic CHF present with cough, low grade fever, shortness of breath, possible infiltrates in right middle lobe, rapid AFIB, elevated BNP, diffuse crackles in b/l lung. CHF exacerbation, diastolic Received lasix 40mg in ED on LAsix 40mg IV BID O2 prn Echo done intake and output Daily weight cardiology consult Dr Leigh r/o Pneumonia vs Bonchitis received levaquin in ED Started levaquin 700mg IV QOd urine for pneumonia antigen pending AFIB w RVR Not on anticoagulant due to prior GI bleed and anemia HAd Multiple episodes of tachycardia HR 140's 150's yesterday, 25mg of Lopressor given overnight with with increase to toprol XL to 37.5 mg PO qd Pt was found to have SBP is 90's for most of the night So to prevent hypotension we will decreased Toprol XL back to 25 and start the pt on Digoxin Loading dose fo Digoxin 50mg IV, 25 mg IV once in 6 hours X2 Digoxin 0.125mg Po daily Close Monitoring of BP Microcytic Anemia likely Iron deficiency Anemia Hbg 9 Monitor CBC prior iron studies with low iron, low ferritin and high/normal TIBC HTN On Toprol XL CKD Monitor bun, cr monitor intake and output on Lasix Hypokalemia K 3.2 KCL 40 meq PO BID x2 doses repeat bmp in am FEN Fluid: none Electrolytes: Chemistry in am Nutrition: Low sodium diet Prophylaxis DVT: SCD, Lovenox SQ Visit type - Emergency Visit Emergency Visit: Yes ED Registration Date: 06/02/16 Care time: The patient presented to the Emergency Department on the above date and was hospitalized for further evaluation of their emergent condition. - New Patient This patient is new to me today: No - Critical Care Critical Care patient: No
[2016-06-05] MEDS: FUROSEMIDE 40 MG/4 ML INJECTABLE VIAL IVPUSH SCH ×2 (06:35→16:49)
--- NOTE | 2016-06-05 07:05 | PN ---
Physical Exam: SUBJECTIVE: Patient seen and examined Pt denies chest pain, shortness of breath only one episode of palpitations overnight fort a few seconds No n/v, no lightheadedness Pt is still having cough with white phlegm Pt also complained of difficulty sleeping and havin strange dreams and sensation overnight OBJECTIVE: Vital Signs Period Temp Pulse Resp BP Sys/Hinojosa Pulse Ox Last 24 Hr 98 F-98.3 F 75-98 18-22 83-101/46-66 96-98 GENERAL: Awake, alert, and fully oriented, in no acute distress. HEAD: Normal with no signs of trauma. EARS, NOSE, THROAT: Ears normal, nares patent, oropharynx clear without exudates. Moist mucous membranes. NECK: Normal range of motion, supple without lymphadenopathy, or masses. Positive JVD, positive hepatojugular reflux LUNGS: exp wheezes and b/l crackles to auscultation bilaterally. No accessory muscle use. HEART: irregular rate and rhythm, S1 and S2 with systolic 2/6 murmur, rub or gallop. ABDOMEN: Soft, nontender, not distended, normoactive bowel sounds, no guarding, no rebound, no masses. No hepatomegaly or splenomegaly. MUSCULOSKELETAL: Normal range of motion at all joints. No bony deformities or tenderness. No CVA tenderness. UPPER EXTREMITIES: 2+ pulses, warm, well-perfused. No cyanosis. No clubbing. Cap refill <2 seconds. No peripheral edema. LOWER EXTREMITIES: 2+ pulses, warm, well-perfused. No calf tenderness. No peripheral edema. NEUROLOGICAL: Normal speech. Normal gait. PSYCHIATRIC: Cooperative. Good eye contact. Appropriate mood and affect. SKIN: Warm, dry, normal turgor, no rashes or lesions noted. Laboratory Results - last 24 hr 06/04/16 06/04/16 06:00 15:53 Sodium 132 L Potassium 3.2 L Chloride 99 Carbon Dioxide 29 Anion Gap 4 L BUN 11 Creatinine 0.9 POC Glucometer 108 Random Glucose 104 Calcium 8.4 L Phosphorus 3.6 Magnesium 2.0 Active Medications Generic Name Dose Route Start Last Admin Trade Name Freq PRN Reason Stop Dose Admin Albuterol/Ipratropium 1 amp 06/02/16 14:56 Duoneb - NEB Q4H PRN SHORTNESS OF BREATH Digoxin 0.125 mg 06/05/16 10:00 Lanoxin - PO DAILY [facility] Furosemide 40 mg 06/02/16 16:00 06/05/16 06:35 Lasix Injection - IVPUSH 40 mg BID@0600,1600 [facility] Administration Levofloxacin 150 mls @ 100 mls/hr 06/04/16 10:00 06/04/16 09:45 Levaquin 750 Mg Premixed Ivpb - IVPB 100 mls/hr Q2D@1000 [facility] Administration Metoprolol Succinate 25 mg 06/05/16 10:00 Toprol Xl - PO DAILY [facility] CBC, BMP 06/03/16 05:35 CXR 06/02/16: Since the prior study of 05/31/2016, again noted is the large heart with unfolded aorta, prominent shira and congestive changes. Discrete infiltrate is not seen. If findings do not resolve then further imaging with CT may be of help Echo; LV size, function normal, mild concentric LVH, no wall motion abnormality , RA, LA mildly dilated, moderate to severe TR, RVSP 40-50mghg, Mild pulm HTN ASSESSMENT/PLAN: 66 year old female with pmh of Anemia, HTN, AFIB on Toprol XL but no anticoagulant, Diastolic CHF present with cough, low grade fever, shortness of breath, possible infiltrates in right middle lobe, rapid AFIB, elevated BNP, diffuse crackles in b/l lung. CHF exacerbation, diastolic Received lasix 40mg in ED on LAsix 40mg IV BID O2 prn Echo done intake and output Daily weight cardiology consult Dr Leigh r/o Pneumonia vs Bonchitis received levaquin in ED on levaquin 700mg IV QOd urine for pneumonia antigen negative Blood culture and urine culture negative so far AFIB w RVR Not on anticoagulant due to prior GI bleed and anemia HAd Multiple episodes of tachycardia HR 140's 150's yesterday, 25mg of Lopressor given overnight with with increase to toprol XL to 37.5 mg PO qd Pt was found to have SBP is 90's for most of the night OnToprol XL 25 mg, decrease to 12.5 mg PO on Digoxin 0.125mg Po daily, was loaded yesterday, first dose this morning awaiting dig level this am Pt has some episode of bradycardia overnight, the lowest one is 46 while sleeping. a few 1-2 second pauses Monitor HR and BP Microcytic Anemia likely Iron deficiency Anemia Hbg 9 Monitor CBC prior iron studies with low iron, low ferritin and high/normal TIBC HTN On Toprol XL CKD Monitor bun, cr monitor intake and output on Lasix Hypokalemia K 3.2 yesterday KCL 40 meq PO BID x2 doses given yesterday awaiting bmp result FEN Fluid: none Electrolytes: Chemistry in am Nutrition: Low sodium diet Prophylaxis DVT: SCD, Lovenox SQ Disposition: keep in telemetry Visit type - Emergency Visit Emergency Visit: Yes ED Registration Date: 06/02/16 Care time: The patient presented to the Emergency Department on the above date and was hospitalized for further evaluation of their emergent condition. - New Patient This patient is new to me today: No - Critical Care Critical Care patient: No
[2016-06-05 07:47] LABS: ANION GAP 6 (8-16); CALCIUM 8.8 mg/dL (8.5-10.1); CO2 27 mmol/L (21-32); GLUCOSE,RANDOM 96 mg/dL (74-106); MAGNESIUM 2.2 mg/dL (1.8-2.4)
[2016-06-05 08:04] LABS: CREATININE 0.8 mg/dL (0.55-1.02); DIGOXIN LEVEL 0.4762 ng/ml (0.8-2.0); TROPONIN I < 0.02 ng/ml (0.00-0.05)
[2016-06-05] MEDS ORDERED: METOPROLOL SUCCINATE 25 MG TAB.SR.24H (FP) PO SCH (10:00)
[2016-06-05] MEDS: DIGOXIN 0.125 MG TABLET (FP) PO SCH (10:08)
[2016-06-05] MEDS: METOPROLOL SUCCINATE 25 MG TAB.SR.24H (FP) PO SCH (10:10)
[2016-06-05] MEDS ORDERED: ALBUTEROL SO4 2.5/IPRATROPIUM 0.5 INH SOL 3 ML VIAL.NEB. NEB ONE (10:41)
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
--- NOTE | 2016-06-05 17:12 | PN ---
Teaching Attending Note Name of Resident: Roshan Rincon ATTENDING PHYSICIAN STATEMENT I saw and evaluated the patient. I reviewed the resident's note and discussed the case with the resident. I agree with the resident's findings and plan as documented. SUBJECTIVE: no fever ro chills, feels tired. no light headedness OBJECTIVE: NAD , pleasant and cooperative CV: irreg irreg . 3/6 SM at LLSB Lungs: bilateral crackles , worse than yesterday Ext: no edema ASSESSMENT AND PLAN: 66 y/o lady with h/o HTN, AFib, diatolic CHF, who presneted with palpitations and SOB . she was found to have acute D CHF and RVR 1- A fib with RVR . Rate has improved on tele but BLood pressure is on lower side. - toprol decreased to 12.5 . - cont Dig 0.125 mg daily - monitor BP carefully as pt is symptomatic - not on AC due to previous GI bleed, she understands that CHADSVACS score of at least 4 with high risk for stroke 2- Acute D CHF . due to A fib with RVR . - cont IV lasix BID. as she still has significant crackles, and worse than yesterday ,. UOP is not being documented correctly . 3- Possible R LL infiltrate . tomorrow last dose of levaquin then dc dispo : HLOC
[2016-06-06 08:27] LABS: CALCIUM 8.8 mg/dL (8.5-10.1)
[2016-06-06 08:29] LABS: CREATININE 0.8 mg/dL (0.55-1.02)
--- NOTE | 2016-06-06 08:32 | PN ---
Physical Exam: SUBJECTIVE: Patient seen and examined Pt said she feeling down More more dizziness but just tired and down with low energy no fever, chills, no n/v, no chest or palpitation, no sob, low lower ext edema OBJECTIVE: Vital Signs Period Temp Pulse Resp BP Sys/Hinojosa Pulse Ox Last 24 Hr 97.4 F-98 F 82-92 16-20 91-101/54-67 98 GENERAL: Awake, alert, and fully oriented, in no acute distress. HEAD: Normal with no signs of trauma. EARS, NOSE, THROAT: Ears normal, nares patent, oropharynx clear without exudates. Moist mucous membranes. NECK: Normal range of motion, supple without lymphadenopathy, or masses. Positive JVD, positive hepatojugular reflux LUNGS: b/l crackles to auscultation bilaterally. No accessory muscle use. HEART: irregular rate and rhythm, S1 and S2 with systolic 3/6 murmur, rub or gallop. ABDOMEN: Soft, nontender, not distended, normoactive bowel sounds, no guarding, no rebound, no masses. No hepatomegaly or splenomegaly. MUSCULOSKELETAL: Normal range of motion at all joints. No bony deformities or tenderness. No CVA tenderness. UPPER EXTREMITIES: 2+ pulses, warm, well-perfused. No cyanosis. No clubbing. Cap refill <2 seconds. No peripheral edema. LOWER EXTREMITIES: 2+ pulses, warm, well-perfused. No calf tenderness. No peripheral edema. NEUROLOGICAL: Normal speech. Normal gait. PSYCHIATRIC: Cooperative. Good eye contact. Appropriate mood and affect. SKIN: Warm, dry, normal turgor, no rashes or lesions noted. Laboratory Results - last 24 hr 06/06/16 06:00 Sodium 139 Potassium 4.2 Chloride 103 Carbon Dioxide 28 Anion Gap 8 BUN 14 Creatinine 0.8 Random Glucose 94 Calcium 8.8 Active Medications Generic Name Dose Route Start Last Admin Trade Name Freq PRN Reason Stop Dose Admin Albuterol/Ipratropium 1 amp 06/02/16 14:56 Duoneb - NEB Q4H PRN SHORTNESS OF BREATH Digoxin 0.125 mg 06/05/16 10:00 06/05/16 10:08 Lanoxin - PO 0.125 mg DAILY [facility] Administration Levofloxacin 150 mls @ 100 mls/hr 06/04/16 10:00 06/04/16 09:45 Levaquin 750 Mg Premixed Ivpb - IVPB 100 mls/hr Q2D@1000 [facility] Administration Metoprolol Succinate 12.5 mg 06/05/16 10:00 06/05/16 10:10 Toprol Xl - PO 12.5 mg DAILY [facility] Administration CBC, BMP 06/03/16 05:35 06/06/16 06:00 Laboratory Tests 06/03/16 06/05/16 05:35 05:35 Troponin I 0.02 < 0.02 Digoxin 0.4762 L ASSESSMENT/PLAN: CXR 06/05/16 Large heart. Congestive changes. Probable confluence of veins by the posterior heart. Follow-up imaging suggested. If the findings do not resolve then further imaging with CT may be of help. CXR 06/02/16: Since the prior study of 05/31/2016, again noted is the large heart with unfolded aorta, prominent shira and congestive changes. Discrete infiltrate is not seen. If findings do not resolve then further imaging with CT may be of help Echo: LV size, function normal, mild concentric LVH, no wall motion abnormality , RA, LA mildly dilated, moderate to severe TR, RVSP 40-50mghg, Mild pulm HTN ASSESSMENT/PLAN: 66 year old female with pmh of Anemia, HTN, AFIB on Toprol XL but no anticoagulant, Diastolic CHF present with cough, low grade fever, shortness of breath, possible infiltrates in right middle lobe, rapid AFIB, elevated BNP, diffuse crackles in b/l lung. CHF exacerbation, diastolic Received lasix 40mg in ED Was on LAsix 40mg IV BID which was dc yesterday by cardiology O2 prn Echo done intake and output Daily weight cardiology consult Dr Leigh r/o Pneumonia vs Bonchitis received levaquin in ED on levaquin 700mg IV QOd, Last dose today urine for pneumonia antigen negative Blood culture and urine culture negative so far AFIB w RVR Not on anticoagulant due to prior GI bleed and anemia HAd Multiple episodes of tachycardia HR 140's 150's 04/03/16, Follow by hypotension when betablocker was increased Toprol XL decrease to 12.5 mg PO on Digoxin 0.125mg Po daily last dig level was 0.47, Goal is 0.5-1 HR is currently controlled with no major Monitor HR and BP Microcytic Anemia likely Iron deficiency Anemia Hbg 9 Monitor CBC prior iron studies with low iron, low ferritin and high/normal TIBC Start ferrous sulfate 325mg PO BID HTN On Toprol XL CKD Monitor bun, cr monitor intake and output on Lasix Hypokalemia resolved FEN Fluid: none Electrolytes: Chemistry in am Nutrition: Low sodium diet Prophylaxis DVT: SCD, Lovenox SQ Disposition: keep in telemetry Visit type - Emergency Visit Emergency Visit: Yes ED Registration Date: 06/02/16 Care time: The patient presented to the Emergency Department on the above date and was hospitalized for further evaluation of their emergent condition. - New Patient This patient is new to me today: No - Critical Care Critical Care patient: No - Discharge Referral Referred to [facility] Med P.C.: No
--- NOTE | 2016-06-06 10:45 | PN ---
Teaching Attending Note Name of Resident: Roshan Rincon ATTENDING PHYSICIAN STATEMENT I saw and evaluated the patient. I reviewed the resident's note and discussed the case with the resident. I agree with the resident's findings and plan as documented. SUBJECTIVE: Patient is feeling better, with no acute distress, no shortness of breath.No wheezing, is tired all the time as per patient. OBJECTIVE: Vital Signs Temperature 97.8 F 06/06/16 01:57 Pulse Rate 83 06/06/16 07:23 Respiratory Rate 20 06/06/16 07:23 Blood Pressure 91/67 06/06/16 07:23 O2 Sat by Pulse Oximetry (%) 98 06/05/16 21:00 GENERAL: Awake, alert, and fully oriented, in no acute distress. HEAD: Normal with no signs of trauma. EARS, NOSE, THROAT: Ears normal, nares patent, oropharynx clear without exudates. Moist mucous membranes. NECK: Normal range of motion, supple without lymphadenopathy, or masses. Positive JVD, positive hepatojugular reflux LUNGS: exp wheezes and b/l crackles to auscultation bilaterally. No accessory muscle use. HEART: irregular rate and rhythm, S1 and S2 with systolic 2/6 murmur, no rub or gallop. ABDOMEN: Soft, nontender, not distended, normoactive bowel sounds, no guarding, no rebound, no masses. No hepatomegaly or splenomegaly. MUSCULOSKELETAL: Normal range of motion at all joints. No bony deformities or tenderness. No CVA tenderness. EXTREMITIES: 2+ pulses, warm, well-perfused. No calf tenderness. No peripheral edema. NEUROLOGICAL: Normal speech. Normal gait. PSYCHIATRIC: Cooperative. Good eye contact. Appropriate mood and affect. SKIN: Warm, dry, normal turgor, no rashes or lesions noted. CBCD WBC 3.5 K/mm3 (4.0-10.0) L D 06/03/16 05:35 RBC 4.07 M/mm3 (3.60-5.2) 06/03/16 05:35 Hgb 9.0 GM/dL (10.7-15.3) L 06/03/16 05:35 Hct 29.2 % (32.4-45.2) L 06/03/16 05:35 MCV 71.8 fl (80-96) L 06/03/16 05:35 MCHC 30.8 g/dl (32.0-36.0) L 06/03/16 05:35 RDW 21.6 % (11.6-15.6) H 06/03/16 05:35 Plt Count 167 K/MM3 (134-434) 06/03/16 05:35 MPV 7.7 fl (7.5-11.1) 06/03/16 05:35 CMP Sodium 139 mmol/L (136-145) 06/06/16 06:00 Potassium 4.2 mmol/L (3.5-5.1) 06/06/16 06:00 Chloride 103 mmol/L (98-107) 06/06/16 06:00 Carbon Dioxide 28 mmol/L (21-32) 06/06/16 06:00 Anion Gap 8 (8-16) 06/06/16 06:00 BUN 14 mg/dL (7-18) 06/06/16 06:00 Creatinine 0.8 mg/dL (0.55-1.02) 06/06/16 06:00 Creat Clearance w eGFR 55.14 (>60) 06/02/16 10:55 Random Glucose 94 mg/dL (74-106) 06/06/16 06:00 Calcium 8.8 mg/dL (8.5-10.1) 06/06/16 06:00 Total Bilirubin 1.1 mg/dL (0.2-1.0) H D 06/02/16 10:55 AST 41 U/L (15-37) H D 06/02/16 10:55 ALT 36 U/L (12-78) D 06/02/16 10:55 Alkaline Phosphatase 126 U/L (45-117) H 06/02/16 10:55 Total Protein 7.1 g/dl (6.4-8.2) 06/02/16 10:55 Albumin 3.5 g/dl (3.4-5.0) 06/02/16 10:55 CARDIAC ENZYMES Creatine Kinase 48 IU/L (26-192) 06/05/16 05:35 Troponin I < 0.02 ng/ml (0.00-0.05) 06/05/16 05:35 Current Medications Generic Name Dose Route Start Last Admin Trade Name Freq PRN Reason Stop Dose Admin Albuterol/Ipratropium 1 amp 06/02/16 14:56 Duoneb - NEB Q4H PRN SHORTNESS OF BREATH Digoxin 0.125 mg 06/05/16 10:00 06/05/16 10:08 Lanoxin - PO 0.125 mg DAILY [facility] Administration Levofloxacin 150 mls @ 100 mls/hr 06/04/16 10:00 06/04/16 09:45 Levaquin 750 Mg Premixed Ivpb - IVPB 100 mls/hr Q2D@1000 [facility] Administration Metoprolol Succinate 12.5 mg 06/05/16 10:00 06/05/16 10:10 Toprol Xl - PO 12.5 mg DAILY [facility] Administration Medication Instructions Recorded Furosemide [Lasix -] 20 mg PO DAILY #30 tablet 07/27/15 Metoprolol Succinate [Toprol XL -] 25 mg PO DAILY 11/20/15 Azithromycin 250 mg PO DAILY #5 tablet 05/31/16 ASSESSMENT AND PLAN: 66 y/o lady with h/o HTN, AFib, diatolic CHF, who presented with palpitations and SOB . she was found to have acute Diastolic CHF and RVR # A fib rate is controlled today. But slight hypotensive recheck blood pressure is 113 systolic. Continue Toprol to 12.5mg , cont Dig 0.125 mg daily - monitor BP carefully as pt is symptomatic , not on AC due to previous GI bleed, she understands that CHADSVACS score of at least 4 with high risk for stroke dIGOXIN LEVEL IS 0.28 will increase digoxin to 0.25mg. # Possible Interstitial Lung Disease will get CT of the chest without contrast, Discussed with . # Microcytic Anemia, prevpusly labs were done, patient has Iron deficency anemia willstart her o n Fe supplement 2x per day with Colace 100mg Bid to prevent constipation. # Possible R LL infiltrate . COMPLETED lEVAQUIN ANTIBIOTIC dvt PX:eARLY AMBULATION, scDs
[2016-06-06] MEDS: DIGOXIN 0.125 MG TABLET (FP) PO SCH (11:15)
[2016-06-06] MEDS: METOPROLOL SUCCINATE 25 MG TAB.SR.24H (FP) PO SCH (11:15)
[2016-06-06] MEDS: LEVOFLOXACIN 750 MG IVPB 150 ML IVPB SCH (11:16)
[2016-06-06] MEDS ORDERED: DOCUSATE SODIUM 100 MG CAPSULE (FP) PO PRN (11:17)
[2016-06-06 11:31] LABS: DIGOXIN LEVEL 0.288 ng/ml (0.8-2.0)
--- NOTE | 2016-06-06 11:39 | PN ---
Progress Note, Physician History of Present Illness: seen and examined today in [facility]. no overnight events. no new complaints. - Current Medication List Current Medications: Active Medications Albuterol/Ipratropium (Duoneb -) 1 amp NEB Q4H PRN PRN Reason: SHORTNESS OF BREATH Digoxin (Lanoxin -) 0.125 mg PO DAILY [facility] Last Admin: 06/06/16 11:15 Dose: 0.125 mg Docusate Sodium (Colace -) 100 mg PO BID PRN PRN Reason: CONSTIPATION Ferrous Sulfate (Feosol -) 325 mg PO BIDWM [facility] Levofloxacin (Levaquin 750 Mg Premixed Ivpb -) 150 mls @ 100 mls/hr IVPB Q2D@ 1000 [facility] Last Admin: 06/06/16 11:16 Dose: 100 mls/hr Metoprolol Succinate (Toprol Xl -) 12.5 mg PO DAILY [facility] Last Admin: 06/06/16 11:15 Dose: 12.5 mg - Objective Vital Signs: Vital Signs Temperature 97.8 F 06/06/16 10:56 Pulse Rate 88 06/06/16 11:15 Respiratory Rate 18 06/06/16 10:56 Blood Pressure 113/55 06/06/16 10:56 O2 Sat by Pulse Oximetry (%) 98 06/05/16 21:00 Constitutional: Yes: Well Nourished, No Distress, Calm Eyes: Yes: WNL, Conjunctiva Clear, EOM Intact, PERRL HENT: Yes: WNL, Atraumatic, Normocephalic Neck: Yes: WNL, Supple, Trachea Midline Cardiovascular: Yes: Pulse Irregular, S1, S2. No: Bradycardia, Tachycardia, Bruit, JVD, Gallop, Murmur, Rub, S3, S4, Varicosities Respiratory: Yes: Regular, Rales, Rhonchi, Wheezes Gastrointestinal: Yes: WNL, Normal Bowel Sounds, Soft. No: Distention, Tenderness Musculoskeletal: Yes: WNL Extremities: Yes: WNL Edema: No Peripheral Pulses WNL: Yes Peripheral Pulses: Left Doralis Pedis: 2+, Right Dorsalis Pedis: 2+ Integumentary: Yes: WNL Neurological: Yes: WNL, Alert, Oriented, Cran Nerves II-XII Intact ...Motor Strength: WNL Psychiatric: Yes: WNL, Alert, Oriented Labs: CBC, BMP 06/03/16 05:35 06/06/16 06:00 INR, PTT INR 1.31 (0.82-1.09) H 06/03/16 05:35 - ....Imaging Chest X-ray: Report Reviewed, Image Reviewed EKG: Report Reviewed, Image Reviewed Other: Report Reviewed, Image Reviewed (tele-AF, HR controlled, 5 beats NSVT, PVCs) Assessment/Plan Atrial fibrillation-HR adequately controlled -cont Toprol XL 12.5mg daily and digoxin -not on AC due to history of GI bleed with prior lesions on EGD requiring cautery and clipping SOB -receiving Abx for possible PNA -lung exam has crackles throughout, out of proportion to volume status (which is otherwise euvolemic) -would consider interstitial lung disease and consider a CT chest to evaluate -evidence of pulm htn and mod to severe TR on echo could be related -would not diurese at this point Coronary artery disease recent + stress treadmill MIBI test GI to evaluate prior to consideration for cardiac catheterization
[2016-06-06] MEDS ORDERED: DIGOXIN 0.125 MG TABLET (FP) PO ONE (11:48)
[2016-06-06] MEDS: FERROUS SO4 325 MG TABLET (FP) PO SCH ×2 (12:00→17:20)
--- NOTE | 2016-06-06 13:04 | CONSULT ---
Consult Consult Specialty:: GI Referred by:: Reason for Consultation:: history of GI bleed in patient in need of AC - History of Present Illness Chief Complaint: Dyspnea History of Present Illness: 66 F with h/o CAD s/p recent stress MIBI (+), gastric vascular lesion s/p EGD with endoclip placement necessary for hemostasis, s/p ablation for svt, limited exercise tolerance, anemia now admitted with c/o SOB/MTZ and cough. She was started on steroids and AbRx as opt but failed to improve and was subsequently sent to the ER by [facility] PCP. Patient denies recent history of black or bloody stools. - History Source History Provided By: Patient, Medical Record Limitations to Obtaining History: No Limitations - Past Medical History Cardio/Vascular: Yes: AFIB (sp ablation), HTN, Other ("irregular heart beat" possible ablation) ...: No - Alcohol/Substance Use Hx Alcohol Use: No - Smoking History Smoking history: Never smoked Have you smoked in the past 12 months: No Aproximately how many cigarettes per day: 0 - Social History ADL: Independent History of Recent Travel: No Home Medications - Allergies Allergies/Adverse Reactions: Allergies Allergy/AdvReac Type Severity Reaction Status Date / Time Penicillins Allergy Verified 06/02/16 09:55 - Home Medications Home Medications: Ambulatory Orders Furosemide [Lasix -] 20 mg PO DAILY #30 tablet 07/27/15 Metoprolol Succinate [Toprol XL -] 25 mg PO DAILY 11/20/15 Azithromycin 250 mg PO DAILY #5 tablet 05/31/16 Physical Exam-GI Vital Signs: Vital Signs Temperature 97.8 F 06/06/16 10:56 Pulse Rate 80 06/06/16 12:00 Respiratory Rate 18 06/06/16 10:56 Blood Pressure 113/55 06/06/16 10:56 O2 Sat by Pulse Oximetry (%) 98 06/05/16 21:00 Constitutional: Yes: Thin HENT: Yes: Normocephalic Neck: Yes: Supple Cardiovascular: Yes: Pulse Irregular Respiratory: Yes: Rales (diffusely throughout the lung romero) Labs: CBC, BMP 06/03/16 05:35 06/06/16 06:00 INR, PTT INR 1.31 (0.82-1.09) H 06/03/16 05:35 Imaging - Results X-ray: Report Reviewed (CHF, cardiomegaly) Assessment/Plan Case d/w Dr Leigh. Patient has (+) stress MIBI and needs cath with AC most likely She had bleeding vascular lesions in the stomach that required intervention 2 months ago. She may have similar lesions in the small bowel. Rec: Patient to come to my office shortly after d/c and will arrange for outpatient capsule endoscopy at that time. If negative, no contraindication to AC. If (+) will likely need enteroscopy with ablation. I dont know what the patient will agree to at this time. She has refused advanced therapeutics in the past ( catheterization) At this time, she agrees to capsule endoscopy. Will go from there.
[2016-06-07 07:23] LABS: MCH 22.4 pg (25.7-33.7); MCHC 31.3 g/dl (32.0-36.0); MEAN CELL VOLUME 71.5 fl (80-96); MEAN PLT VOLUME 7.4 fl (7.5-11.1); PLATELET COUNT 212 K/MM3 (134-434); RDW 21.2 % (11.6-15.6); WHITE BLOOD COUNT 3.4 K/mm3 (4.0-10.0)
[2016-06-07 07:43] LABS: CALCIUM 8.5 mg/dL (8.5-10.1); CREATININE 0.8 mg/dL (0.55-1.02)
[2016-06-07 07:57] LABS: DIGOXIN LEVEL 0.5783 ng/ml (0.8-2.0)
[2016-06-07 08:58] LABS: ANISOCYTOSIS 2+; HYPOCHROMIA 1+; POLYCHROMASIA FEW
[2016-06-07 08:59] LABS: MICROCYTOSIS 1+
[2016-06-07] MEDS: DIGOXIN 0.125 MG TABLET (FP) PO SCH (10:30)
[2016-06-07] MEDS: FERROUS SO4 325 MG TABLET (FP) PO SCH ×2 (10:30→17:21)
[2016-06-07] MEDS: METOPROLOL SUCCINATE 25 MG TAB.SR.24H (FP) PO SCH ×2 (10:30→10:32)
--- NOTE | 2016-06-07 10:42 | PN ---
Progress Note, Physician - Current Medication List Current Medications: Active Medications Albuterol/Ipratropium (Duoneb -) 1 amp NEB Q4H PRN PRN Reason: SHORTNESS OF BREATH Digoxin (Lanoxin -) 0.25 mg PO DAILY [facility] Docusate Sodium (Colace -) 100 mg PO BID PRN PRN Reason: CONSTIPATION Ferrous Sulfate (Feosol -) 325 mg PO BIDWM [facility] Last Admin: 06/06/16 17:20 Dose: 325 mg Levofloxacin (Levaquin 750 Mg Premixed Ivpb -) 150 mls @ 100 mls/hr IVPB Q2D@ 1000 [facility] Last Admin: 06/06/16 11:16 Dose: 100 mls/hr Metoprolol Succinate (Toprol Xl -) 12.5 mg PO DAILY [facility] Last Admin: 06/06/16 11:15 Dose: 12.5 mg - Objective Vital Signs: Vital Signs Temperature 97.4 F L 06/07/16 02:22 Pulse Rate 66 06/07/16 02:22 Respiratory Rate 20 06/07/16 02:22 Blood Pressure 87/48 06/07/16 02:22 O2 Sat by Pulse Oximetry (%) 98 06/06/16 21:00 Labs: CBC, BMP 06/07/16 06:00 06/07/16 06:00 INR, PTT INR 1.31 (0.82-1.09) H 06/03/16 05:35 Assessment/Plan Atrial fibrillation-HR adequately controlled -cont Toprol XL 12.5mg daily and digoxin -not on AC due to history of GI bleed with prior lesions on EGD requiring cautery and clipping -GI evaluation appreciated, will hold off on AC until further work up completed SOB -receiving Abx for possible PNA -lung exam still has crackles throughout, out of proportion to volume status ( which is otherwise euvolemic) -f/up chest CT to evaluate for interstitial lung disease -evidence of pulm htn and mod to severe TR on echo could be related -would not diurese at this point Coronary artery disease -recent + stress treadmill MIBI test -GI evaluation appreciated, will hold off on AC and cardiac cath until further work up completed
--- NOTE | 2016-06-07 10:42 | PN ---
Progress Note (short form) - Note Progress Note: Patient is comfortable with no acute distress, blood pressure was found to be low this morning , was held the bp meds. Vital Signs Temperature 97.4 F L 06/07/16 02:22 Pulse Rate 69 06/07/16 10:30 Respiratory Rate 20 06/07/16 02:22 Blood Pressure 87/48 06/07/16 02:22 O2 Sat by Pulse Oximetry (%) 98 06/06/16 21:00 GENERAL: Awake, alert, and fully oriented, in no acute distress. HEAD: Normal with no signs of trauma. EARS, NOSE, THROAT: Ears normal, oropharynx clear without exudates. Moist mucous membranes. NECK: Normal range of motion, supple without lymphadenopathy, or masses. Positive JVD, positive hepatojugular reflux LUNGS: exp wheezes and b/l crackles to auscultation bilaterally. No accessory muscle use. HEART: irregular rate and rhythm, S1 and S2 with systolic 2/6 murmur, no rub or gallop. ABDOMEN: Soft, nontender, not distended, normoactive bowel sounds, no guarding, no rebound, no masses. No hepatomegaly or splenomegaly. MUSCULOSKELETAL: Normal range of motion at all joints. No bony deformities or tenderness. No CVA tenderness. EXTREMITIES: 2+ pulses, warm, well-perfused. No calf tenderness. No peripheral edema. NEUROLOGICAL: Normal speech. Normal gait. PSYCHIATRIC: Cooperative. Good eye contact. Appropriate mood and affect. SKIN: Warm, dry, normal turgor, no rashes or lesions noted. CBCD WBC 3.4 K/mm3 (4.0-10.0) L 06/07/16 06:00 RBC 4.36 M/mm3 (3.60-5.2) 06/07/16 06:00 Hgb 9.8 GM/dL (10.7-15.3) L 06/07/16 06:00 Hct 31.2 % (32.4-45.2) L 06/07/16 06:00 MCV 71.5 fl (80-96) L 06/07/16 06:00 MCHC 31.3 g/dl (32.0-36.0) L 06/07/16 06:00 RDW 21.2 % (11.6-15.6) H 06/07/16 06:00 Plt Count 212 K/MM3 (134-434) D 06/07/16 06:00 MPV 7.4 fl (7.5-11.1) L 06/07/16 06:00 CMP Sodium 139 mmol/L (136-145) 06/07/16 06:00 Potassium 4.4 mmol/L (3.5-5.1) 06/07/16 06:00 Chloride 105 mmol/L (98-107) 06/07/16 06:00 Carbon Dioxide 26 mmol/L (21-32) 06/07/16 06:00 Anion Gap 8 (8-16) 06/07/16 06:00 BUN 14 mg/dL (7-18) 06/07/16 06:00 Creatinine 0.8 mg/dL (0.55-1.02) 06/07/16 06:00 Creat Clearance w eGFR 55.14 (>60) 06/02/16 10:55 Random Glucose 88 mg/dL (74-106) 06/07/16 06:00 Calcium 8.5 mg/dL (8.5-10.1) 06/07/16 06:00 Total Bilirubin 1.1 mg/dL (0.2-1.0) H D 06/02/16 10:55 AST 41 U/L (15-37) H D 06/02/16 10:55 ALT 36 U/L (12-78) D 06/02/16 10:55 Alkaline Phosphatase 126 U/L (45-117) H 06/02/16 10:55 Total Protein 7.1 g/dl (6.4-8.2) 06/02/16 10:55 Albumin 3.5 g/dl (3.4-5.0) 06/02/16 10:55 CARDIAC ENZYMES Creatine Kinase 48 IU/L (26-192) 06/05/16 05:35 Troponin I < 0.02 ng/ml (0.00-0.05) 06/05/16 05:35 Current Medications Generic Name Dose Route Start Last Admin Trade Name Freq PRN Reason Stop Dose Admin Albuterol/Ipratropium 1 amp 06/02/16 14:56 Duoneb - NEB Q4H PRN SHORTNESS OF BREATH Digoxin 0.25 mg 06/07/16 10:00 06/07/16 10:30 Lanoxin - PO 0.25 mg DAILY BRITANY Administration Docusate Sodium 100 mg 06/06/16 11:17 Colace - PO BID PRN CONSTIPATION Ferrous Sulfate 325 mg 06/06/16 12:00 06/07/16 10:30 Feosol - PO 325 mg BIDWM BRITANY Administration Levofloxacin 150 mls @ 100 mls/hr 06/04/16 10:00 06/06/16 11:16 Levaquin 750 Mg Premixed Ivpb - IVPB 100 mls/hr Q2D@1000 BRITANY Administration Metoprolol Succinate 12.5 mg 06/05/16 10:00 06/07/16 10:32 Toprol Xl - PO Not Given DAILY [facility] Medication Instructions Recorded Furosemide [Lasix -] 20 mg PO DAILY #30 tablet 07/27/15 Metoprolol Succinate [Toprol XL -] 25 mg PO DAILY 11/20/15 Azithromycin 250 mg PO DAILY #5 tablet 05/31/16 ASSESSMENT AND PLAN: 66 y/o lady with h/o HTN, AFib, diatolic CHF, who presented with palpitations and SOB . she was found to have acute Diastolic CHF and RVR # A fib rate is controlled today. But slight hypotensive recheck blood pressure is 113 systolic. Continue Toprol to 12.5mg , cont Dig 0.125 mg daily will get dig.level for am - monitor BP carefully as pt is symptomatic , not on AC due to previous GI bleed, she understands that CHADSVACS score of at least 4 with high risk for stroke dIGOXIN LEVEL IS 0.28 will increase digoxin to 0.25mg. # Possible Interstitial Lung Disease , CT of the chest without contrast pending official reading still not read, Discussed with . # Microcytic Anemia, previously labs were done, patient has Iron deficency anemia will start her on Fe supplement 2x per day with Colace 100mg Bid to prevent constipation. # Possible R LL infiltrate . COMPLETED lEVAQUIN ANTIBIOTIC dvt PX:eARLY AMBULATION, scDs Visit type - Emergency Visit Emergency Visit: Yes ED Registration Date: 06/02/16 Care time: The patient presented to the Emergency Department on the above date and was hospitalized for further evaluation of their emergent condition. - New Patient This patient is new to me today: No - Critical Care Critical Care patient: No - Discharge Referral Referred to [facility] No
--- NOTE | 2016-06-07 12:34 | PN ---
Progress Note (short form) - Note Progress Note: Patient comfortable-states "weak" this AM Last Vital Signs Temp Pulse Resp BP Pulse Ox 97.4 F L 69 20 87/48 98 06/07/16 02:22 06/07/16 10:30 06/07/16 02:22 06/07/16 02:22 06/06/16 21:00 Current Medications Generic Name Dose Route Start Last Admin Trade Name Freq PRN Reason Stop Dose Admin Albuterol/Ipratropium 1 amp 06/02/16 14:56 Duoneb - NEB Q4H PRN SHORTNESS OF BREATH Digoxin 0.25 mg 06/07/16 10:00 06/07/16 10:30 Lanoxin - PO 0.25 mg DAILY BRITANY Administration Docusate Sodium 100 mg 06/06/16 11:17 Colace - PO BID PRN CONSTIPATION Ferrous Sulfate 325 mg 06/06/16 12:00 06/07/16 10:30 Feosol - PO 325 mg BIDWM BRITANY Administration Levofloxacin 150 mls @ 100 mls/hr 06/04/16 10:00 06/06/16 11:16 Levaquin 750 Mg Premixed Ivpb - IVPB 100 mls/hr Q2D@1000 BRITANY Administration Metoprolol Succinate 12.5 mg 06/05/16 10:00 06/07/16 10:32 Toprol Xl - PO Not Given DAILY BRITANY EXAM Lungs: scattered crackles throughout bilaterally Cor: Irreg/irreg Abd: Soft and NT Labs: CBC, BMP 06/07/16 06:00 06/07/16 06:00 A/P Again discussed arrangement for capsule endoscopy to be made after discharge. Information furnished. Will follow as opt
[2016-06-08 07:00] LABS: BASOPHIL 1.5 % (0-2.0); MCH 22.4 pg (25.7-33.7); MEAN CELL VOLUME 72.1 fl (80-96); MEAN PLT VOLUME 7.2 fl (7.5-11.1); NEUTROPHILS 42.4 % (42.8-82.8); PLATELET COUNT 254 K/MM3 (134-434); RDW 20.9 % (11.6-15.6); WHITE BLOOD COUNT 3.7 K/mm3 (4.0-10.0)
[2016-06-08 07:21] LABS: ALBUMIN 3.3 g/dl (3.4-5.0); ANION GAP 4 (8-16); BILIRUBIN,TOTAL 0.4 mg/dL (0.2-1.0); CALCIUM 8.5 mg/dL (8.5-10.1); CO2 27 mmol/L (21-32); CREATININE 0.7 mg/dL (0.55-1.02); GLUCOSE,RANDOM 88 mg/dL (74-106); MAGNESIUM 2.2 mg/dL (1.8-2.4); SGOT/AST 18 U/L (15-37); SGPT/ALT 20 U/L (12-78); TOT PROT 6.7 g/dl (6.4-8.2)
[2016-06-08 07:32] LABS: ALK PHOS 99 U/L (45-117); DIGOXIN LEVEL 0.4587 ng/ml (0.8-2.0)
[2016-06-08] MEDS: FERROUS SO4 325 MG TABLET (FP) PO SCH ×2 (09:15→18:07)
[2016-06-08] MEDS: LEVOFLOXACIN 750 MG IVPB 150 ML IVPB SCH (09:15)
[2016-06-08] MEDS: DIGOXIN 0.125 MG TABLET (FP) PO SCH (09:15)
[2016-06-08] MEDS: METOPROLOL SUCCINATE 25 MG TAB.SR.24H (FP) PO SCH (09:16)
--- NOTE | 2016-06-08 11:11 | PN ---
Progress Note, Physician History of Present Illness: seen and examined today in [facility]. no overnight events. no new complaints. - Current Medication List Current Medications: Active Medications Albuterol/Ipratropium (Duoneb -) 1 amp NEB Q4H PRN PRN Reason: SHORTNESS OF BREATH Digoxin (Lanoxin -) 0.25 mg PO DAILY [facility] Last Admin: 06/08/16 09:15 Dose: 0.25 mg Docusate Sodium (Colace -) 100 mg PO BID PRN PRN Reason: CONSTIPATION Ferrous Sulfate (Feosol -) 325 mg PO BIDWM [facility] Last Admin: 06/08/16 09:15 Dose: 325 mg Levofloxacin (Levaquin 750 Mg Premixed Ivpb -) 150 mls @ 100 mls/hr IVPB Q2D@ 1000 [facility] Last Admin: 06/08/16 09:15 Dose: 100 mls/hr Metoprolol Succinate (Toprol Xl -) 12.5 mg PO DAILY [facility] Last Admin: 06/08/16 09:16 Dose: Not Given - Objective Vital Signs: Vital Signs Temperature 97.8 F 06/08/16 02:35 Pulse Rate 85 06/08/16 09:15 Respiratory Rate 20 06/08/16 09:00 Blood Pressure 89/45 06/08/16 02:35 O2 Sat by Pulse Oximetry (%) 98 06/08/16 09:00 Constitutional: Yes: Well Nourished, No Distress, Calm Eyes: Yes: WNL, Conjunctiva Clear, EOM Intact, PERRL HENT: Yes: WNL, Atraumatic, Normocephalic Neck: Yes: WNL, Supple, Trachea Midline Cardiovascular: Yes: Pulse Irregular, S1, S2. No: Bradycardia, Tachycardia, Bruit, JVD, Gallop, Murmur, Rub, S3, S4, Varicosities Respiratory: Yes: Regular, Other (crackles throughout). No: Rales, Rhonchi, SOB , Wheezes Gastrointestinal: Yes: WNL, Normal Bowel Sounds, Soft. No: Distention, Tenderness Musculoskeletal: Yes: WNL Extremities: Yes: WNL Edema: No Peripheral Pulses WNL: Yes Peripheral Pulses: Left Doralis Pedis: 2+, Right Dorsalis Pedis: 2+ Integumentary: Yes: WNL Neurological: Yes: WNL, Alert, Oriented, Cran Nerves II-XII Intact ...Motor Strength: WNL Psychiatric: Yes: WNL, Alert, Oriented Labs: CBC, BMP 06/08/16 05:00 06/08/16 05:00 INR, PTT INR 1.31 (0.82-1.09) H 06/03/16 05:35 - ....Imaging Chest X-ray: Report Reviewed, Image Reviewed EKG: Report Reviewed, Image Reviewed Other: Report Reviewed, Image Reviewed (tele-Afib, HR adequately controlled, PVCs) Assessment/Plan Atrial fibrillation-HR adequately controlled -cont Toprol XL 12.5mg daily and digoxin -not on AC due to history of GI bleed with prior lesions on EGD requiring cautery and clipping -GI evaluation appreciated, will hold off on AC until further work up completed -ok to dc tele at this point -close outpatient follow up SOB -receiving Abx for possible PNA -lung exam still has crackles throughout, out of proportion to volume status ( which is otherwise euvolemic) -f/up chest CT report to evaluate for interstitial lung disease -evidence of pulm htn and mod to severe TR on echo could be related to chronic lung process -does not require diureses at this point Coronary artery disease -recent + stress treadmill MIBI test -GI evaluation appreciated, will hold off on AC and cardiac cath until further work up completed -close outpatient follow up
--- NOTE | 2016-06-08 14:45 | PN ---
Progress Note (short form) - Note Progress Note: Subjective: no fever or chills, no SOB , no cough . Objective: Vital Signs: Last Vital Signs Temp Pulse Resp BP Pulse Ox 97.2 F L 85 20 98/67 98 06/08/16 10:00 06/08/16 10:00 06/08/16 10:00 06/08/16 10:00 06/08/16 09:00 Intake & Output 06/05/16 06/06/16 06/07/16 06/08/16 23:59 23:59 23:59 23:59 Intake Total 200 250 200 Balance 200 250 200 Weight 112 lb 6.4 oz 111 lb 8 oz 112 lb 2 oz 112 lb Labs: Laboratory Results - last 24 hr 06/08/16 06/08/16 05:00 05:00 WBC 3.7 L RBC 4.33 Hgb 9.7 L Hct 31.2 L MCV 72.1 L MCHC 31.0 L RDW 20.9 H Plt Count 254 MPV 7.2 L Neutrophils % 42.4 L D Lymphocytes % 42.9 H D Monocytes % 10.2 Eosinophils % 3.0 D Basophils % 1.5 Sodium 136 Potassium 4.1 Chloride 105 Carbon Dioxide 27 Anion Gap 4 L BUN 12 Creatinine 0.7 Creat Clearance w eGFR > 60 Random Glucose 88 Calcium 8.5 Magnesium 2.2 Total Bilirubin 0.4 D AST 18 D ALT 20 D Alkaline Phosphatase 99 D Total Protein 6.7 Albumin 3.3 L Digoxin 0.4587 L PE : NAD , pleasant and cooperative CV: irreg irreg . 3/6 SM at LLSB Lungs: bilateral crackles half the way down Ext: no edema ASSESSMENT AND PLAN: 66 y/o lady with h/o HTN, AFib, diatolic CHF, who presneted with palpitations and SOB . she was found to have acute D CHF and RVR 1- A fib with RVR . tele reviewed. rate is controlled , but BP has been 80s and 80s despite not giving toprol x 2 days . - will hold toprol - will cont dig . level is acceptable - monitor VS - CHADSVACS score of 4, but will hold AC until after out pt GI eval 2- Acute D CHF . due to A fib with RVR . -agree that pt looks euvolemic . - lasix on hold - CT scan of chest pending 3- Possible RLL PNA . dc abx. completed a course of abx 4- dispo : possible dc tomorrow if BP is stable Visit type - Emergency Visit Emergency Visit: Yes ED Registration Date: 06/02/16 Care time: The patient presented to the Emergency Department on the above date and was hospitalized for further evaluation of their emergent condition. - New Patient This patient is new to me today: No - Critical Care Critical Care patient: No
[2016-06-09] MEDS: DIGOXIN 0.125 MG TABLET (FP) PO SCH (09:31)
[2016-06-09] MEDS: FERROUS SO4 325 MG TABLET (FP) PO SCH ×2 (09:32→17:38)
[2016-06-09] MEDS: ALBUTEROL SO4 2.5/IPRATROPIUM 0.5 INH SOL 3 ML VIAL.NEB. NEB PRN (09:41)
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
[2016-06-09 11:47] LABS: BASOPHIL 1.2 % (0-2.0); EOSINOPHIL 3.4 % (0-4.5); MCH 22.2 pg (25.7-33.7); MCHC 30.7 g/dl (32.0-36.0); MEAN CELL VOLUME 72.5 fl (80-96); MEAN PLT VOLUME 7.1 fl (7.5-11.1); NEUTROPHILS 53.7 % (42.8-82.8); PLATELET COUNT 263 K/MM3 (134-434); RDW 21.3 % (11.6-15.6); WHITE BLOOD COUNT 3.8 K/mm3 (4.0-10.0)
--- NOTE | 2016-06-09 14:28 | DS ---
Physical Exam: SUBJECTIVE: Patient seen and examined Pt feeling well, still complained of felling tired but much better than last weak Once a day palpitations, nothing sustained No chest pain, no shortness, no more lightheadedness NO fever, chills, cough OBJECTIVE: Vital Signs Period Temp Pulse Resp BP Sys/Hinojosa Pulse Ox Last 24 Hr 97 F-98.2 F 70-95 18-20 90-118/50-74 98-98 PHYSICAL EXAM GENERAL: Awake, alert, and fully oriented, in no acute distress. HEAD: Normal with no signs of trauma. EARS, NOSE, THROAT: Ears normal, nares patent, oropharynx clear without exudates. Moist mucous membranes. NECK: Normal range of motion, supple without lymphadenopathy, or masses. Positive JVD. negatve hepatojugular reflux LUNGS: b/l crackles to auscultation bilaterally. No accessory muscle use. HEART: irregular rate and rhythm, S1 and S2 with systolic 3/6 murmur, rub or gallop. ABDOMEN: Soft, nontender, not distended, normoactive bowel sounds, no guarding, no rebound, no masses. No hepatomegaly or splenomegaly. MUSCULOSKELETAL: Normal range of motion at all joints. No bony deformities or tenderness. No CVA tenderness. UPPER EXTREMITIES: 2+ pulses, warm, well-perfused. No cyanosis. No clubbing. Cap refill <2 seconds. No peripheral edema. LOWER EXTREMITIES: 2+ pulses, warm, well-perfused. No calf tenderness. No peripheral edema. NEUROLOGICAL: Normal speech. Normal gait. PSYCHIATRIC: Cooperative. Good eye contact. Appropriate mood and affect. SKIN: Warm, dry, normal turgor, no rashes or lesions noted. LABS Laboratory Results - last 24 hr 06/09/16 11:42 WBC 3.8 L RBC 4.38 Hgb 9.8 L Hct 31.8 L MCV 72.5 L MCHC 30.7 L RDW 21.3 H Plt Count 263 MPV 7.1 L Neutrophils % 53.7 D Lymphocytes % 31.0 D Monocytes % 10.7 H Eosinophils % 3.4 Basophils % 1.2 HOSPITAL COURSE: Date of Admission:06/02/16 66 year old female with pmh of HTN, AFib, diatolic CHF, anemia presented to the ED with c/o cough. the symptoms started on Wednesday with fever, cough and body ache, pt came to ED and was placed on observation and then discharged the next day after improving with a Zpack. Today the symptoms worsened with cough fever with white phlegm, shortness of breath, low grade fever, chills. Pt denies orthopnea, dyspnea on exertion, n/v, palpitation, dizziness, chest pain, diaphoresis, no leg swelling, no recent immobilization or surgery , no generalized, weakness, no rinnhorrhea, no myalgia or arthralgia. ER course was notable for: (1) Ben tipton 66 year old female with pmh of HTN, AFib, diatolic CHF, anemia presented to the ED with c/o cough, palpitations and SOB . Pt was found to have acute D CHF and AFib with RVR AFIB with RVR. On admission pt had multiple episode of HR 140's 150's with shortness of breath and lightheadedness. Metoprolol dose was increased which controlled the HR but pt became hypotensive, with lightheadedness and fatigue. Toprol XL dose was gradually reduced every day until stopped and Digoxin was started. NO more episode of symptomatic palpations. Pt is still midly hypotensive of Toprol XL but no lightheadedness, shortness of breath. DC Toprol XL. Continue Digoxin 0.25mg PO qd , level goal 0.5-1. CHADSVACS score of 4, hold Anticoagualtion until outpatient eval with Dr Kang with Capsule endopscopy/ Acute Diastolic CHF Rt AFIB w RVR. On admission Pt had Shortness of breath, cough, JVD, positive hepatojugular reflux, b/l crakles in b/l lungs. Echo was done, cardiology was consulted. Pt was treated with lasix until euvolemia. Post treatment Ct chest was done, it showed no pleural effusion, no pulm edema. Right Lower Lobe PNA. Was treated with Levaquin IV. Symptoms improved, now no fever, no chills, no produce cough, no leukocytosis Microcytic anemia rt Iron defiency. iron studies done last admission, treated with ferrous sulfate 325mg PO. Hgb remained stable during this admission. Outpatient GI follow up with Dr Kang b/l Crackles rt Pulmonary changes: F/u outpatient with Dr Rangel Pancreatic duct and intrahepatic duct dilation: F/u With Dr Kang ouptient for MRCP/MRI abdomen with gadolinimum Date of Discharge: 06/09/16 Discharge Summary Reason For Visit: CHF,BACTERIAL PNE Current Active Problems CHF (congestive heart failure) (Acute) Community acquired bacterial pneumonia (Acute) Coronary artery disease (Acute) Hypokalemia (Acute) SOB (shortness of breath) (Acute) Atrial fibrillation (Chronic) Condition: Stable - Instructions Diet, Activity, Other Instructions: Discharge home resume cardiac diet resume home activity Started on digoxin 0.25mg orally daily Stop metoprolol Stop Lasix Follow up with primary care physician within 1 week Follow up with [facility] Dr Leigh with 1-[address] Martin, pathology laboratory aide within 1 week. Will need to do Capsule endoscopy. Will need to do MRI abdomen with Gadolinium /MRCP to evaluate Intrahepatic duct/Biliary duct for dilation and Pancreatic duct which were found on CT chest Follow up with Dr Ra Rangel within 1 week for evaluation for Pumonary hypertension, Interstitial lung disease, Pulmonary function tests If you are having chest pain, palpitation, shortness of breath, lightheadedness , cough, nausea, vomiting, increased leg swelling and rapid weight gain, shortness of breath on exertion or with minimal activity please return to the Emergency room or call your survey research center director or your primary care physician. Referrals: Cayetano Vargas MD [Primary Care Provider] - Bret Kang MD [Staff Physician] - 1 Week (Follow up for Capsule endoscopy Reccomend MRCP for evalution on intrahepatic duct and Pancreatic duct/cyst) Checo Leigh MD [Staff Physician] - Ra Rangel MD, MD [Staff Physician] - 1 Week (For evaluation for possible Pulmonary hypertension, PFTs, Interstitial lung disease.) Disposition: HOME - Home Medications Comprehensive Discharge Medication List: Ambulatory Orders Digoxin [Lanoxin -] 0.25 mg PO DAILY #60 tablet 06/09/16 Docusate Sodium [Colace -] 100 mg PO BID PRN #0 capsule 06/09/16 Ferrous Sulfate [Feosol] 325 mg PO BIDWM ud 06/09/16 - Discharge Referral Referred to [facility] No
--- NOTE | 2016-06-09 14:58 | PN ---
Physical Exam: SUBJECTIVE: Patient seen and examined Pt feeling well, still complained of felling tired but much better than last weak Once a day palpitations, nothing sustained No chest pain, no shortness, no more lightheadedness NO fever, chills, cough OBJECTIVE: Vital Signs Period Temp Pulse Resp BP Sys/Hinojosa Pulse Ox Last 24 Hr 97 F-98.2 F 70-95 18-20 90-118/50-74 98-98 GENERAL: Awake, alert, and fully oriented, in no acute distress. HEAD: Normal with no signs of trauma. EARS, NOSE, THROAT: Ears normal, nares patent, oropharynx clear without exudates. Moist mucous membranes. NECK: Normal range of motion, supple without lymphadenopathy, or masses. Positive JVD. negatve hepatojugular reflux LUNGS: b/l crackles to auscultation bilaterally. No accessory muscle use. HEART: irregular rate and rhythm, S1 and S2 with systolic 3/6 murmur, rub or gallop. ABDOMEN: Soft, nontender, not distended, normoactive bowel sounds, no guarding, no rebound, no masses. No hepatomegaly or splenomegaly. MUSCULOSKELETAL: Normal range of motion at all joints. No bony deformities or tenderness. No CVA tenderness. UPPER EXTREMITIES: 2+ pulses, warm, well-perfused. No cyanosis. No clubbing. Cap refill <2 seconds. No peripheral edema. LOWER EXTREMITIES: 2+ pulses, warm, well-perfused. No calf tenderness. No peripheral edema. NEUROLOGICAL: Normal speech. Normal gait. PSYCHIATRIC: Cooperative. Good eye contact. Appropriate mood and affect. SKIN: Warm, dry, normal turgor, no rashes or lesions noted. Laboratory Results - last 24 hr 06/09/16 11:42 WBC 3.8 L RBC 4.38 Hgb 9.8 L Hct 31.8 L MCV 72.5 L MCHC 30.7 L RDW 21.3 H Plt Count 263 MPV 7.1 L Neutrophils % 53.7 D Lymphocytes % 31.0 D Monocytes % 10.7 H Eosinophils % 3.4 Basophils % 1.2 Active Medications Generic Name Dose Route Start Last Admin Trade Name Freq PRN Reason Stop Dose Admin Albuterol/Ipratropium 1 amp 06/02/16 14:56 06/09/16 09:41 Duoneb - NEB 1 amp Q4H PRN Administration SHORTNESS OF BREATH Digoxin 0.25 mg 06/07/16 10:00 06/09/16 09:31 Lanoxin - PO 0.25 mg DAILY BRITANY Administration Docusate Sodium 100 mg 06/06/16 11:17 Colace - PO BID PRN CONSTIPATION Ferrous Sulfate 325 mg 06/06/16 12:00 06/09/16 09:32 Feosol - PO 325 mg BIDWM BRITANY Administration CBC, BMP 06/09/16 11:42 06/08/16 05:00 Microbiology 06/02/16 21:00 Urine - Urine Clean Catch Legionella Antigen - Final 06/02/16 21:00 Urine - Urine Clean Catch Streptococcus pneumoniae Antigen ( M - Final 06/02/16 20:52 Urine - Urine Clean Catch Urine Culture - Final NO GROWTH OBTAINED 06/02/16 10:55 Blood - Peripheral Venous Blood Culture - Final NO GROWTH AFTER 5 DAYS INCUBATION 06/02/16 10:55 Blood - Peripheral Venous Blood Culture - Final NO GROWTH AFTER 5 DAYS INCUBATION 06/02/16 10:55 Blood - Peripheral Venous Blood Culture - Preliminary NO GROWTH OBTAINED AFTER 72 HOURS, INCUBATION TO CONTINUE FOR 2 DAYS. 06/02/16 10:55 Blood - Peripheral Venous Blood Culture - Preliminary NO GROWTH OBTAINED AFTER 72 HOURS, INCUBATION TO CONTINUE FOR 2 DAYS. Laboratory Tests 06/02/16 06/02/16 06/03/16 10:55 19:20 05:35 Troponin I 0.05 0.02 0.02 Digoxin 06/05/16 06/06/16 05:35 09:30 Troponin I < 0.02 Digoxin Pending Laboratory Tests 06/07/16 06/08/16 06:00 05:00 Digoxin 0.5783 L 0.4587 L CXR 06/05/16 Large heart. Congestive changes. Probable confluence of veins by the posterior heart. Follow-up imaging suggested. If the findings do not resolve then further imaging with CT may be of help. CXR 06/02/16: Since the prior study of 05/31/2016, again noted is the large heart with unfolded aorta, prominent shira and congestive changes. Discrete infiltrate is not seen. If findings do not resolve then further imaging with CT may be of help Echo: LV size, function normal, mild concentric LVH, no wall motion abnormality , RA, LA mildly dilated, moderate to severe TR, RVSP 40-50mghg, Mild pulm HTN CT Chest 06/06/16:. Impression: A very small right middle lobe opacity is seen probably representing an infiltrate and less likely mild atelectasis. Correlate with follow-up CT. Mild left lower lobe linear opacity consistent with either discoid atelectasis and/or linear parenchymal scarring. Mild bilateral mosaic pattern interstitial thickening which may be on the basis of etiologies such as small airway disease or mild interstitial pulmonary vascular congestion. Cardiomegaly. Small calcified mediastinal and hilar lymph nodes consistent with prior granulomatous disease. As visualized on sonography performed 03/30/2011 multiple dilated intrahepatic portal veins are seen within the left and right lobes. The etiology of this appearance is uncertain on the basis of this study. A 1.3 cm fluid structure is partially visualized in the region of the pancreatic head. Given the current limited visualization of the upper abdomen is uncertain whether this fluid structure represents a possible pancreatic cysts versus dilatation of the extrahepatic biliary tract. ASSESSMENT/PLAN: 66 year old female with pmh of HTN, AFib, diatolic CHF, anemia presented to the ED with c/o cough, palpitations and SOB . Pt was found to have acute D CHF and AFib with RVR AFIB with RVR. On admission pt had multiple episode of HR 140's 150's with shortness of breath and lightheadedness. Metoprolol dose was increased which controlled the HR but pt became hypotensive , with lightheadedness and fatigue. Toprol XL dose was gradually reduced every day until stopped and Digoxin was started. NO more episode of symptomatic palpations since then. Pt is still midly hypotensive of Toprol XL but no lightheadedness, shortness of breath. DC Toprol XL. Continue Digoxin 0.25mg PO qd , level goal 0.5-1. CHADSVACS score of 4, hold Anticoagualtion until outpatient eval with Dr Kang with Capsule endopscopy Acute Diastolic CHF Rt AFIB w RVR. On admission Pt had Shortness of breath, cough, JVD, positive hepatojugular reflux, b/l crakles in b/l lungs. Echo was done, cardiology was consulted. Pt was treated with lasix until euvolemia. Post treatment Ct chest was done, it showed no pleural effusion, no pulm edema. Right Lower Lobe PNA. Was treated with Levaquin IV. Symptoms improved, now no fever, no chills, no produce cough, no leukocytosis Microcytic anemia rt Iron defiency. Iron studies done last admission, treated with ferrous sulfate 325mg PO. Hgb remained stable during this admission. F/u CBC Outpatient GI follow up with Dr Kang b/l Crackles rt Chronic Pulmonary changes: F/u outpatient with Dr Rangel for PFT, eval for Pulm HTN, ILD, granulomatous disease Pancreatic cysts versus dilatation of the extrahepatic biliary tract. F/u With Dr Kang outpatient consider MRCP/MRI abdomen with gadolinimum Leukopenia r/o infection UA Blood culture Consider urine culture HTN controlled off medication CKD resolved Hypokalemia resolved FEN Fluid: none Electrolytes: no abnormalities Nutrition: Low sodium diet Prophylaxis DVT: SCD, Lovenox SQ Disposition: keep in telemetry Visit type - Emergency Visit Emergency Visit: Yes ED Registration Date: 06/02/16 Care time: The patient presented to the Emergency Department on the above date and was hospitalized for further evaluation of their emergent condition. - New Patient This patient is new to me today: No - Critical Care Critical Care patient: No - Discharge Referral Referred to [facility] No
--- NOTE | 2016-06-09 16:17 | PN ---
Teaching Attending Note Name of Resident: Roshan Rincon ATTENDING PHYSICIAN STATEMENT I saw and evaluated the patient. I reviewed the resident's note and discussed the case with the resident. I agree with the resident's findings and plan as documented. SUBJECTIVE: no fever or chills, no abd pain , had palpitations in am ( briefly ) OBJECTIVE: NAD , pleasant and cooperative CV: irreg irreg . 3/6 SM at LLSB Lungs: bilateral crackles half the way down Ext: no edema ASSESSMENT AND PLAN: 66 y/o lady with h/o HTN, AFib, diatolic CHF, who presneted with palpitations and SOB . she was found to have acute D CHF and RVR 1- A fib with RVR . off toprol due to hypotension - will cont dig . level 0.5-1 - CHADSVACS score of 4, but will hold AC until after out pt GI eval 2- Acute D CHF . due to A fib with RVR . - euvolemic now . of lasix . will not need lasix at dc - CT scan of chest with possible interstitial lung disease . pulm f.u as out pt . pt instructed about that 3- R PNA . visible on CT scan of chest ( R middle lobe ) . completed a course of abx . patient has leukopenia , uncelar etiology , despite treating her infection . she clinically does not look septic. but will send repeat blood cx and repeat UA today 4-microcytic anemia : due to iron def. irion studies in March , reveals Iron def . she is currently on ferrous sulfate , her home dose ( BID ) . will increase to TID dispo : due to leukopenia and ruling out sepsis . dc will be canceled today . dc if blood cx at 48 hr Neg
[2016-06-09 21:13] LABS: URINE APPEARANCE CLEAR; URINE BILIRUBIN NEGATIVE (NEGATIVE); URINE BLOOD NEGATIVE (NEGATIVE); URINE COLOR STRAW; URINE GLUCOSE (UA) NEGATIVE (NEGATIVE); URINE KETONE NEGATIVE (NEGATIVE); URINE LEUK ESTERASE NEGATIVE (NEGATIVE); URINE NITRITE NEGATIVE (NEGATIVE); URINE PROTEIN NEGATIVE (NEGATIVE); URINE UROBILINOGEN NEGATIVE E.U./dl (0.2-1.0)
--- NOTE | 2016-06-10 08:13 | PN ---
Physical Exam: SUBJECTIVE: Patient seen and examined Pt is feeling well this morning no more weakness, feeling down No chest pain, sob, palpitation, no n/v no cough OBJECTIVE: Vital Signs Period Temp Pulse Resp BP Sys/Hinojosa Pulse Ox Last 24 Hr 97.6 F-98.6 F 65-95 18-20 97-148/54-67 98-98 GENERAL: Awake, alert, and fully oriented, in no acute distress. HEAD: Normal with no signs of trauma. EARS, NOSE, THROAT: Ears normal, nares patent, oropharynx clear without exudates. Moist mucous membranes. NECK: Normal range of motion, supple without lymphadenopathy, or masses. Positive JVD. negatve hepatojugular reflux LUNGS: b/l crackles to auscultation bilaterally. No accessory muscle use. HEART: irregular rate and rhythm, S1 and S2 with systolic 3/6 murmur, rub or gallop. ABDOMEN: Soft, nontender, not distended, normoactive bowel sounds, no guarding, no rebound, no masses. No hepatomegaly or splenomegaly. MUSCULOSKELETAL: Normal range of motion at all joints. No bony deformities or tenderness. No CVA tenderness. UPPER EXTREMITIES: 2+ pulses, warm, well-perfused. No cyanosis. No clubbing. Cap refill <2 seconds. No peripheral edema. LOWER EXTREMITIES: 2+ pulses, warm, well-perfused. No calf tenderness. No peripheral edema. NEUROLOGICAL: Normal speech. Normal gait. PSYCHIATRIC: Cooperative. Good eye contact. Appropriate mood and affect. SKIN: Warm, dry, normal turgor, no rashes or lesions noted. . Laboratory Results - last 24 hr 06/09/16 06/09/16 11:42 20:45 WBC 3.8 L RBC 4.38 Hgb 9.8 L Hct 31.8 L MCV 72.5 L MCHC 30.7 L RDW 21.3 H Plt Count 263 MPV 7.1 L Neutrophils % 53.7 D Lymphocytes % 31.0 D Monocytes % 10.7 H Eosinophils % 3.4 Basophils % 1.2 Urine Color Straw Urine Appearance Clear Urine pH 7.0 Ur Specific [place] 1.009 Urine Protein Negative Urine Glucose (UA) Negative Urine Ketones Negative Urine Blood Negative Urine Nitrite Negative Urine Bilirubin Negative Urine Urobilinogen Negative Ur Leukocyte Esterase Negative Active Medications Generic Name Dose Route Start Last Admin Trade Name Freq PRN Reason Stop Dose Admin Albuterol/Ipratropium 1 amp 06/02/16 14:56 06/09/16 09:41 Duoneb - NEB 1 amp Q4H PRN Administration SHORTNESS OF BREATH Digoxin 0.25 mg 06/07/16 10:00 06/09/16 09:31 Lanoxin - PO 0.25 mg DAILY BRITANY Administration Docusate Sodium 100 mg 06/06/16 11:17 Colace - PO BID PRN CONSTIPATION Ferrous Sulfate 325 mg 06/09/16 17:30 06/09/16 17:38 Feosol - PO 325 mg TIDCM BRITANY Administration CBC, BMP 06/09/16 11:42 06/08/16 05:00 Microbiology Laboratory Tests 06/09/16 06/10/16 20:45 05:35 Urine Nitrite Negative Ur Leukocyte Esterase Negative Digoxin Pending Laboratory Tests 06/10/16 05:35 Digoxin 0.5151 L ASSESSMENT/PLAN: CXR 06/05/16 Large heart. Congestive changes. Probable confluence of veins by the posterior heart. Follow-up imaging suggested. If the findings do not resolve then further imaging with CT may be of help. CXR 06/02/16: Since the prior study of 05/31/2016, again noted is the large heart with unfolded aorta, prominent shira and congestive changes. Discrete infiltrate is not seen. If findings do not resolve then further imaging with CT may be of help Echo: LV size, function normal, mild concentric LVH, no wall motion abnormality , RA, LA mildly dilated, moderate to severe TR, RVSP 40-50mghg, Mild pulm HTN CT Chest 06/06/16:. Impression: A very small right middle lobe opacity is seen probably representing an infiltrate and less likely mild atelectasis. Correlate with follow-up CT. Mild left lower lobe linear opacity consistent with either discoid atelectasis and/or linear parenchymal scarring. Mild bilateral mosaic pattern interstitial thickening which may be on the basis of etiologies such as small airway disease or mild interstitial pulmonary vascular congestion. Cardiomegaly. Small calcified mediastinal and hilar lymph nodes consistent with prior granulomatous disease. As visualized on sonography performed 03/30/2011 multiple dilated intrahepatic portal veins are seen within the left and right lobes. The etiology of this appearance is uncertain on the basis of this study. A 1.3 cm fluid structure is partially visualized in the region of the pancreatic head. Given the current limited visualization of the upper abdomen is uncertain whether this fluid structure represents a possible pancreatic cysts versus dilatation of the extrahepatic biliary tract. ASSESSMENT/PLAN: 66 year old female with pmh of HTN, AFib, diatolic CHF, anemia presented to the ED with c/o cough, palpitations and SOB . Pt was found to have acute D CHF and AFib with RVR AFIB with RVR. On admission pt had multiple episode of HR 140's 150's with shortness of breath and lightheadedness. Metoprolol dose was increased which controlled the HR but pt became hypotensive , with lightheadedness and fatigue. Toprol XL dose was gradually reduced every day until stopped and Digoxin was started. NO more episode of symptomatic palpations since then. Pt is still midly hypotensive of Toprol XL but no lightheadedness, shortness of breath. DC Toprol XL. Continue Digoxin 0.25mg PO qd , level goal 0.5-1. Dig level , therapeutic CHADSVACS score of 4, hold Anticoagualtion until outpatient eval with Dr Kang with Capsule endopscopy Acute Diastolic CHF Rt AFIB w RVR. On admission Pt had Shortness of breath, cough, JVD, positive hepatojugular reflux, b/l crakles in b/l lungs. Echo was done, cardiology was consulted. Pt was treated with lasix until euvolemia. Post treatment Ct chest was done, it showed no pleural effusion, no pulm edema. Right Lower Lobe PNA. Was treated with Levaquin IV. Symptoms improved, now no fever, no chills, no produce cough, no leukocytosis Microcytic anemia rt Iron defiency. Iron studies done last admission, treated with ferrous sulfate 325mg PO. Hgb remained stable during this admission. F/u CBC Outpatient GI follow up with Dr Kang b/l Crackles rt Chronic Pulmonary changes: F/u outpatient with Dr Rangel for PFT, eval for Pulm HTN, ILD, granulomatous disease Pancreatic cysts versus dilatation of the extrahepatic biliary tract. F/u With Dr Kang outpatient consider MRCP/MRI abdomen with gadolinimum Leukopenia r/o infection UA Blood culture Consider urine culture HTN controlled off medication CKD resolved Hypokalemia resolved FEN Fluid: none Electrolytes: no abnormalities Nutrition: Low sodium diet Prophylaxis DVT: SCD, Lovenox SQ Disposition: Consider discharge today if ok with Dr Leigh and If blood culture and urine culture are negative Visit type - Emergency Visit Emergency Visit: Yes ED Registration Date: 06/02/16 Care time: The patient presented to the Emergency Department on the above date and was hospitalized for further evaluation of their emergent condition. - New Patient This patient is new to me today: No - Critical Care Critical Care patient: No
[2016-06-10] MEDS: DIGOXIN 0.125 MG TABLET (FP) PO SCH (09:47)
[2016-06-10] MEDS: FERROUS SO4 325 MG TABLET (FP) PO SCH ×3 (09:47→18:21)
[2016-06-10] MEDS: ALBUTEROL SO4 2.5/IPRATROPIUM 0.5 INH SOL 3 ML VIAL.NEB. NEB PRN (11:07)
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
--- NOTE | 2016-06-10 12:57 | DS ---
Physical Exam: SUBJECTIVE: Patient seen and examined Pt is feeling well excited and ready to go home No complaint at this time OBJECTIVE: Vital Signs Period Temp Pulse Resp BP Sys/Hinojosa Pulse Ox Last 24 Hr 97.6 F-98.6 F 65-111 18-20 97-148/54-67 98 PHYSICAL EXAM GENERAL: Awake, alert, and fully oriented, in no acute distress. HEAD: Normal with no signs of trauma. EARS, NOSE, THROAT: Ears normal, nares patent, oropharynx clear without exudates. Moist mucous membranes. NECK: Normal range of motion, supple without lymphadenopathy, or masses. Positive JVD. negatve hepatojugular reflux LUNGS: b/l crackles to auscultation bilaterally. No accessory muscle use. HEART: irregular rate and rhythm, S1 and S2 with systolic 3/6 murmur, rub or gallop. ABDOMEN: Soft, nontender, not distended, normoactive bowel sounds, no guarding, no rebound, no masses. No hepatomegaly or splenomegaly. MUSCULOSKELETAL: Normal range of motion at all joints. No bony deformities or tenderness. No CVA tenderness. UPPER EXTREMITIES: 2+ pulses, warm, well-perfused. No cyanosis. No clubbing. Cap refill <2 seconds. No peripheral edema. LOWER EXTREMITIES: 2+ pulses, warm, well-perfused. No calf tenderness. No peripheral edema. NEUROLOGICAL: Normal speech. Normal gait. PSYCHIATRIC: Cooperative. Good eye contact. Appropriate mood and affect. SKIN: Warm, dry, normal turgor, no rashes or lesions noted. LABS Laboratory Results - last 24 hr 06/09/16 06/10/16 20:45 05:35 Urine Color Straw Urine Appearance Clear Urine pH 7.0 Ur Specific Walker 1.009 Urine Protein Negative Urine Glucose (UA) Negative Urine Ketones Negative Urine Blood Negative Urine Nitrite Negative Urine Bilirubin Negative Urine Urobilinogen Negative Ur Leukocyte Esterase Negative Digoxin 0.5151 L CBC, BMP 06/09/16 11:42 06/08/16 05:00 Microbiology 06/02/16 21:00 Urine - Urine Clean Catch Legionella Antigen - Final 06/02/16 21:00 Urine - Urine Clean Catch Streptococcus pneumoniae Antigen ( M - Final 06/02/16 20:52 Urine - Urine Clean Catch Urine Culture - Final NO GROWTH OBTAINED 06/02/16 10:55 Blood - Peripheral Venous Blood Culture - Final NO GROWTH AFTER 5 DAYS INCUBATION 06/02/16 10:55 Blood - Peripheral Venous Blood Culture - Final NO GROWTH AFTER 5 DAYS INCUBATION Laboratory Tests 06/02/16 06/02/16 06/02/16 10:55 10:55 19:20 Hemoglobin A1c % Lactic Acid 1.872 Troponin I 0.05 0.02 B-Natriuretic Peptide 3610.69 H Triglycerides Cholesterol Total LDL Cholesterol HDL Cholesterol TSH Digoxin 06/03/16 06/03/16 06/05/16 05:35 05:35 05:35 Hemoglobin A1c % 4.7 L Lactic Acid Troponin I 0.02 < 0.02 B-Natriuretic Peptide Triglycerides 67 D Cholesterol 110 Total LDL Cholesterol 63 HDL Cholesterol 45 TSH 2.51 D Digoxin 06/10/16 05:35 Hemoglobin A1c % Lactic Acid Troponin I B-Natriuretic Peptide Triglycerides Cholesterol Total LDL Cholesterol HDL Cholesterol TSH Digoxin 0.5151 L XR 06/05/16 Large heart. Congestive changes. Probable confluence of veins by the posterior heart. Follow-up imaging suggested. If the findings do not resolve then further imaging with CT may be of help. CXR 06/02/16: Since the prior study of 05/31/2016, again noted is the large heart with unfolded aorta, prominent shira and congestive changes. Discrete infiltrate is not seen. If findings do not resolve then further imaging with CT may be of help Echo: LV size, function normal, mild concentric LVH, no wall motion abnormality , RA, LA mildly dilated, moderate to severe TR, RVSP 40-50mghg, Mild pulm HTN CT Chest 06/06/16:. Impression: A very small right middle lobe opacity is seen probably representing an infiltrate and less likely mild atelectasis. Correlate with follow-up CT. Mild left lower lobe linear opacity consistent with either discoid atelectasis and/or linear parenchymal scarring. Mild bilateral mosaic pattern interstitial thickening which may be on the basis of etiologies such as small airway disease or mild interstitial pulmonary vascular congestion. Cardiomegaly. Small calcified mediastinal and hilar lymph nodes consistent with prior granulomatous disease. As visualized on sonography performed 03/30/2011 multiple dilated intrahepatic portal veins are seen within the left and right lobes. The etiology of this appearance is uncertain on the basis of this study. A 1.3 cm fluid structure is partially visualized in the region of the pancreatic head. Given the current limited visualization of the upper abdomen is uncertain whether this fluid structure represents a possible pancreatic cysts versus dilatation of the extrahepatic biliary tract. HOSPITAL COURSE: Date of Admission:06/02/16 66 year old female with pmh of HTN, AFib, diastolic CHF, anemia presented to the ED with c/o cough. the symptoms started on Wednesday with fever, cough and body ache, pt came to ED and was placed on observation and then discharged the next day after improving with a Zpack. Today the symptoms worsened with cough fever with white phlegm, shortness of breath, low grade fever, chills. Pt denies orthopnea, dyspnea on exertion, n/v, palpitation, dizziness, chest pain, diaphoresis, no leg swelling, no recent immobilization or surgery , no generalized, weakness, no rinhorrhea, no myalgia or arthalgia. ER course was notable for:(1) Ben tipton 66 year old female with pmh of HTN, AFib, diatolic CHF, anemia presented to the ED with c/o cough, palpitations and SOB . Pt was found to have acute D CHF and AFib with RVR AFIB with RVR. On admission pt had multiple episode of HR 140's 150's with shortness of breath and lightheadedness. Metoprolol dose was increased which controlled the HR but pt became hypotensive, with lightheadedness and fatigue. Toprol XL dose was gradually reduced every day until it was stopped stopped and Digoxin was started. NO more episode of symptomatic palpations since then with no lightheadedness, shortness of breath. Continue Digoxin 0.25mg PO qd , level goal 0.5-1. Dig level was therapeutic at 0.51. CHADSVACS score of 4, hold Anticoagualtion until outpatient eval with Dr Kang with Capsule endopscopy. follow up with cradiology Dr riddle for further AFIb management. Follow with Dr Kang for capsule endoscopy. Acute Diastolic CHF Rt AFIB w RVR. On admission Pt had Shortness of breath, cough, JVD, positive hepatojugular reflux, b/l crakles in b/l lungs. Echo was done, cardiology was consulted. Pt was treated with lasix until euvolemia. Post treatment Ct chest was done, it showed no pleural effusion, no pulm edema. Follow up with Dr Leigh, cardiology for further management of CHF Right Lower Lobe PNA. Was treated with Levaquin IV. Symptoms improved, now no fever, no chills, no produce cough, no leukocytosis Microcytic anemia rt Iron defiency. Iron studies done last admission, treated with ferrous sulfate 325mg PO. Hgb remained stable during this admission. Outpatient GI follow up with Dr Kang b/l Crackles rt Chronic Pulmonary changes: F/u outpatient with Dr Rangel for PFT, eval for Pulm HTN, ILD, granulomatous disease Pancreatic cysts versus dilatation of the extrahepatic biliary tract. F/u With Dr Kang outpatient consider MRCP/MRI abdomen with gadolinimum Leukopenia r/o infection UA negative, blood culture and urine culture negative. monitor outpatient by PCP. If worsening level consider hem/onc follow up as outpatient HTN controlled off medication CKD resolved Hypokalemia resolved Date of Discharge: 06/10/16 Minutes to complete discharge: 35 Discharge Summary Reason For Visit: CHF,BACTERIAL PNE Current Active Problems CHF (congestive heart failure) (Acute) Community acquired bacterial pneumonia (Acute) Coronary artery disease (Acute) Hypokalemia (Acute) SOB (shortness of breath) (Acute) Atrial fibrillation (Chronic) Condition: Stable - Instructions Diet, Activity, Other Instructions: Discharge home resume cardiac diet resume home activity Started on digoxin 0.25mg orally daily Stop metoprolol Stop Lasix Follow up with primary care physician within 1 week Follow up with Paedodontist Dr Leigh with 1-[address] Martin, necktie centralizing machine operator within 1 week. Will need to do Capsule endoscopy. Will need to do MRI abdomen with Gadolinium /MRCP to evaluate Intrahepatic duct/Biliary duct for dilation and Pancreatic duct which were found on CT chest Follow up with Dr Ra Rangel within 1 week for evaluation for Pulmonary hypertension, Interstitial lung disease, Pulmonary function tests If you are having chest pain, palpitation, shortness of breath, lightheadedness , cough, nausea, vomiting, increased leg swelling and rapid weight gain, shortness of breath on exertion or with minimal activity please return to the Emergency room or call your artificial limb maker or your primary care physician. Referrals: Cayetano Vargas MD [Primary Care Provider] - Bret Kang MD [Staff Physician] - 1 Week (Follow up for Capsule endoscopy Reccomend MRCP for evalution on intrahepatic duct and Pancreatic duct/cyst) Checo Leigh MD [Staff Physician] - Ra Rangel MD, MD [Staff Physician] - 1 Week (For evaluation for possible Pulmonary hypertension, PFTs, Interstitial lung disease.) Disposition: HOME - Home Medications Comprehensive Discharge Medication List: Ambulatory Orders Digoxin [Lanoxin -] 0.25 mg PO DAILY #60 tablet 06/09/16 Docusate Sodium [Colace -] 100 mg PO BID PRN #0 capsule 06/09/16 Ferrous Sulfate [Feosol] 325 mg PO BIDWM ud 06/09/16 This patient is new to me today: No Emergency Visit: Yes ED Registration Date: 06/02/16 Care time: The patient presented to the Emergency Department on the above date and was hospitalized for further evaluation of their emergent condition. Critical Care patient: No - Discharge Referral [facility]erred to [facility] Med P.C.: No
--- NOTE | 2016-06-10 15:32 | PN ---
Teaching Attending Note Name of Resident: Roshan Rincon ATTENDING PHYSICIAN STATEMENT I saw and evaluated the patient. I reviewed the resident's note and discussed the case with the resident. I agree with the resident's findings and plan as documented. SUBJECTIVE: Patient is feeling better, with no acute distress. no shortness of breath, no nausea or vomiting, no chest pain. no palpitations. OBJECTIVE: Vital Signs Temperature 98.1 F 06/10/16 13:21 Pulse Rate 84 06/10/16 13:21 Respiratory Rate 20 06/10/16 13:21 Blood Pressure 93/58 06/10/16 13:21 O2 Sat by Pulse Oximetry (%) 98 06/09/16 21:00 GENERAL: Awake, alert, and fully oriented, in no acute distress. HEAD: Normal with no signs of trauma. EARS, NOSE, THROAT: Ears normal, oropharynx clear without exudates. Moist mucous membranes. NECK: Normal range of motion, supple without lymphadenopathy, or masses. Positive JVD, positive hepatojugular reflux LUNGS: CTA BL . No accessory muscle use. HEART: irregular rate and rhythm, S1 and S2 with systolic 2/6 murmur, no rub or gallop. ABDOMEN: Soft, nontender, not distended, normoactive bowel sounds, no guarding, no rebound, no masses. MUSCULOSKELETAL: Normal range of motion at all joints. No bony deformities or tenderness. EXTREMITIES: 2+ pulses, warm, well-perfused. No calf tenderness. No peripheral edema. NEUROLOGICAL: Normal speech. Normal gait. PSYCHIATRIC: Cooperative. Good eye contact. Appropriate mood and affect. SKIN: Warm, dry, normal turgor, no rashes or lesions noted. CBCD WBC 3.8 K/mm3 (4.0-10.0) L 06/09/16 11:42 RBC 4.38 M/mm3 (3.60-5.2) 06/09/16 11:42 Hgb 9.8 GM/dL (10.7-15.3) L 06/09/16 11:42 Hct 31.8 % (32.4-45.2) L 06/09/16 11:42 MCV 72.5 fl (80-96) L 06/09/16 11:42 MCHC 30.7 g/dl (32.0-36.0) L 06/09/16 11:42 RDW 21.3 % (11.6-15.6) H 06/09/16 11:42 Plt Count 263 K/MM3 (134-434) 06/09/16 11:42 MPV 7.1 fl (7.5-11.1) L 06/09/16 11:42 CMP Sodium 136 mmol/L (136-145) 06/08/16 05:00 Potassium 4.1 mmol/L (3.5-5.1) 06/08/16 05:00 Chloride 105 mmol/L (98-107) 06/08/16 05:00 Carbon Dioxide 27 mmol/L (21-32) 06/08/16 05:00 Anion Gap 4 (8-16) L 06/08/16 05:00 BUN 12 mg/dL (7-18) 06/08/16 05:00 Creatinine 0.7 mg/dL (0.55-1.02) 06/08/16 05:00 Creat Clearance w eGFR > 60 (>60) 06/08/16 05:00 Random Glucose 88 mg/dL (74-106) 06/08/16 05:00 Calcium 8.5 mg/dL (8.5-10.1) 06/08/16 05:00 Total Bilirubin 0.4 mg/dL (0.2-1.0) D 06/08/16 05:00 AST 18 U/L (15-37) D 06/08/16 05:00 ALT 20 U/L (12-78) D 06/08/16 05:00 Alkaline Phosphatase 99 U/L (45-117) D 06/08/16 05:00 Total Protein 6.7 g/dl (6.4-8.2) 06/08/16 05:00 Albumin 3.3 g/dl (3.4-5.0) L 06/08/16 05:00 CARDIAC ENZYMES Creatine Kinase 48 IU/L (26-192) 06/05/16 05:35 Troponin I < 0.02 ng/ml (0.00-0.05) 06/05/16 05:35 Current Medications Generic Name Dose Route Start Last Admin Trade Name Freq PRN Reason Stop Dose Admin Albuterol/Ipratropium 1 amp 06/02/16 14:56 06/10/16 11:07 Duoneb - NEB 1 amp Q4H PRN Administration SHORTNESS OF BREATH Digoxin 0.25 mg 06/07/16 10:00 06/10/16 09:47 Lanoxin - PO 0.25 mg DAILY BRITANY Administration Docusate Sodium 100 mg 06/06/16 11:17 Colace - PO BID PRN CONSTIPATION Ferrous Sulfate 325 mg 06/09/16 17:30 06/10/16 12:14 Feosol - PO 325 mg TIDCM BRITANY Administration Medication Instructions Recorded Digoxin [Lanoxin -] 0.25 mg PO DAILY #60 tablet 06/09/16 Docusate Sodium [Colace -] 100 mg PO BID PRN #60 capsule 06/10/16 Ferrous Sulfate [Feosol] 325 mg PO TIDCM #90 ud 06/10/16 ASSESSMENT AND PLAN: 66 y/o lady with h/o HTN, AFib, diatolic CHF, who presented with palpitations and SOB . she was found to have acute Diastolic CHF and RVR # A fib rate is controlled today. But slight hypotensive recheck blood pressure is 113 systolic. off Toprol to 12.5mg since patient is having hypotension, Patient is on no anticoagulation due to previous GI bleed, she understands that CHADSVACS score of at least 4 with high risk for stroke. Continue with dIGOXIN , LEVEL IS 0.58 will increase digoxin to 0.25mg po daily. #CT of the chest result: Impression: A very small right middle lobe opacity is seen probably representing an infiltrate and less likely mild atelectasis. Correlate with follow-up CT. Mild left lower lobe linear opacity consistent with either discoid atelectasis and/or linear parenchymal scarring. Mild bilateral mosaic pattern interstitial thickening which may be on the basis of etiologies such as small airway disease or mild interstitial pulmonary vascular congestion. Cardiomegaly. Small calcified mediastinal and hilar lymph nodes consistent with prior granulomatous disease. # Microcytic Anemia, previously labs were done, patient has Iron deficency anemia will start her on Fe supplement 2x per day with Colace 100mg Bid to prevent constipation. # Possible R LL infiltrate . COMPLETED lEVAQUIN ANTIBIOTIC dvt PX:eARLY AMBULATION, scDs Patient is being discharged home today and follow up with
[2016-06-10 18:15] VITALS: BP 108/66; PULSE 81; TEMP 97.8
== END 2016-06-10 19:15 | disposition home or self-care (01) | DRG 291 ==
LOC: JER 09:40 → JERBED 13:06 → J4W 18:10
PROVIDERS: ADMIT Internal Medicine; ATTEND Internal Medicine
DX: I13.0 Hypertensive heart and chronic kidney disease with heart failure and stage 1 through stage 4 chronic kidney disease, or unspecified chronic kidney disease (principal); J18.9 Pneumonia, unspecified organism; I50.33 Acute on chronic diastolic (congestive) heart failure; K86.2 Cyst of pancreas; K25.9 Gastric ulcer, unspecified as acute or chronic, without hemorrhage or perforation; D50.8 Other iron deficiency anemias; I25.10 Atherosclerotic heart disease of native coronary artery without angina pectoris; I48.2 Chronic atrial fibrillation; R53.83 Other fatigue; E87.6 Hypokalemia; N18.9 Chronic kidney disease, unspecified; J84.89 Other specified interstitial pulmonary diseases
CPT/HCPCS: 36415; 71010-TC; 71020-TC; 71250-TC; 80048; 80053; 80061; 80162; 81003; 81015; 82550; 83036; 83605; 83721; 83735; 83880; 84100; 84443; 84484; 85025; 85027; 85610; 85730; 87040; 87086; 87899; 93005; 93010; 93306-TC; 94640; 99281-25

== ENCOUNTER 2017-08-08 00:39 | Observation (INO) | payer OTHER ==
[2017-08-08 00:56] VITALS: BMI 22.3
--- NOTE | 2017-08-08 01:48 | PDOC ---
History of Present Illness - General History Source: Patient, Old Records Exam Limitations: No Limitations - History of Present Illness Initial Comments: 08/08/17 02:55 Patient is a 67 year old female with a significant past medical history of HTN, AFib, diastolic CHF, anemia, who presents to the ED with complaints of shortness of breath that began wednesday afternoon. Patient reports experiencing intermittent episodes of difficulty breathing that began yesterday afternoon that she states has shown no signs of subsiding. She reports experiencing associated symptoms of throat pain as well as ear pain. Patient states she has been experiencing a slight productive cough with white phlegm. She reports experiencing flu like symptoms is baseline for her. Patient states she was discontinued from her blood thinners due to being diagnosed with anemia 1 year ago. Denies chest pain, Sob. Denies nausea, vomiting. Denies fevers, chills. Denies trauma to affected area. Denies contact with sick individuals, out of state travelling. Denies any other symptoms. Allergies: Penicillins Social history: No smoking. No alcohol. No illicit drugs. Surgical history: 2 miscarriages with D&C PMD: Dr. Vargas <Mansoor Cerna - Last Filed: 08/08/17 05:44> <Aysha Camp - Last Filed: 08/08/17 23:11> - General Chief Complaint: Shortness of Breath Stated Complaint: TROUBLE BREATHING Time Seen by Provider: 08/08/17 00:52 Past History <Mansoor Cerna - Last Filed: 08/08/17 05:44> - Past Medical History Anemia: Yes Cardiac Disorders: Yes (Irregular Heart beat) COPD: No CHF: Yes GI Disorders: (H pylori) HTN: Yes - Surgical History Abdominal Surgery: Yes (Hernia repair) Cardiac Surgery: Yes (Cardiac cath, s/p ablation) - Immunization History Immunization Up to Date: No - Suicide/Smoking/Psychosocial Hx Smoking History: Never smoked Have you smoked in the past 12 months: No Number of Cigarettes Smoked Daily: 0 Information on smoking cessation initiated: No Hx Alcohol Use: No Drug/Substance Use Hx: No Substance Use Type: None Hx Substance Use Treatment: No <Aysha Camp - Last Filed: 08/08/17 23:11> - Past Medical History Allergies/Adverse Reactions: Allergies Allergy/AdvReac Type Severity Reaction Status Date / Time Penicillins Allergy Verified 06/02/16 09:55 Home Medications: Ambulatory Orders Metoprolol Tartrate 12.5 mg PO DAILY 08/08/17 Review of Systems - Review of Systems Able to Perform ROS?: Yes Comments:: 08/08/17 02:55 GENERAL/CONSTITUTIONAL: No fever or chills. No weakness. HEAD, EYES, EARS, NOSE AND THROAT: +Sore throat. +Ear pain. No change in vision. No ear discharge CARDIOVASCULAR: +Sob. No chest pain RESPIRATORY: +Cough. No wheezing, or hemoptysis. GASTROINTESTINAL: No nausea, vomiting, diarrhea or constipation. GENITOURINARY: No dysuria, frequency, or change in urination. MUSCULOSKELETAL: No joint or muscle swelling or pain. No neck or back pain. SKIN: No rash NEUROLOGIC: No headache, vertigo, loss of consciousness, or change in strength/ sensation. ENDOCRINE: No increased thirst. No abnormal weight change. HEMATOLOGIC/LYMPHATIC: No anemia, easy bleeding, or history of blood clots. ALLERGIC/IMMUNOLOGIC: No hives or skin allergy. <aMnsoor Cerna - Last Filed: 08/08/17 05:44> *Physical Exam - Vital Signs Last Vital Signs Temp Pulse Resp BP Pulse Ox 97.9 F 82 21 149/78 98 08/08/17 00:50 08/08/17 00:50 08/08/17 00:50 08/08/17 00:50 08/08/17 00:50 - Physical Exam Comments: 08/08/17 02:55 GENERAL: Awake, alert, and fully oriented, in no acute distress HEAD: No signs of trauma EYES: PERRLA, EOMI, sclera anicteric, conjunctiva clear ENT: +Submental node. Auricles normal inspection, hearing grossly normal, nares patent, oropharynx clear without exudates. Moist mucosa NECK: Normal ROM, supple, no lymphadenopathy, JVD, or masses LUNGS: +Left sided gas bubble. +Patchy upper right sided wheeze. No crackles HEART: Regular rate and rhythm, normal S1 and S2, no murmurs, rubs or gallops ABDOMEN: Soft, nontender, normoactive bowel sounds. No guarding, no rebound. No masses EXTREMITIES: Normal range of motion, no edema. No clubbing or cyanosis. No cords, erythema, or tenderness NEUROLOGICAL: Cranial nerves II through XII grossly intact. Normal speech, normal gait SKIN: Warm, Dry, normal turgor, no rashes or lesions noted. <NehemiahMansoor - Last Filed: 08/08/17 05:44> - Vital Signs Last Vital Signs Temp Pulse Resp BP Pulse Ox 97.9 F 82 21 149/78 98 08/08/17 00:50 08/08/17 00:50 08/08/17 00:50 08/08/17 00:50 08/08/17 00:50 <Aysha Camp - Last Filed: 08/08/17 23:11> Heart Score/ECG Review - ECG Intrepretation Comment:: 08/08/17 05:44 Completed at 0:53:07 Atrial Fibrillation Right axis deviation Abnormal ECG Vent. rate 75 bpm <NehemiahMansoor - Last Filed: 08/08/17 05:44> ED Treatment Course - LABORATORY CBC & Chemistry Diagram: 08/08/17 03:21 08/08/17 03:21 - ADDITIONAL ORDERS Additional order review: 08/08/17 02:00 Group A Strep Rapid Antigen - Final Throat <Mansoor Cerna - Last Filed: 08/08/17 05:44> - LABORATORY CBC & Chemistry Diagram: 08/08/17 03:21 08/08/17 03:21 <Aysha Camp - Last Filed: 08/08/17 23:11> Medical Decision Making - Medical Decision Making 08/08/17 06:37 Patient Name: DONNA STAHL THIS IS A PRELIMINARY REPORT FROM IMAGING DATA ANALYST DATE OF SERVICE: 2017-08-08 03:07:23 IMAGES: 2 EXAM: CHEST PA \T\ LAT HISTORY: Shortness of breath COMPARISON: None. FINDINGS: Heart is enlarged with a globular configuration. There is tortuosity of the descending aorta. There are diffuse increased interstitial markings with some subpleural septal markings. There is no pneumothorax or pleural effusion IMPRESSION: Pulmonary edema with cardiomegaly suggesting congestive heart failure 08/08/17 22:32 Pt has markedly enlarged heart. She will be admitted for CHF exacerbation and SOB. <Aysha Camp - Last Filed: 08/08/17 23:11> *DC/Admit/Observation/Transfer - Attestations Scribe Attestion: 08/08/17 02:56 Documentation prepared by Mansoor Cerna, acting as medical receptionist medical assistant for Aysha Camp MD/DO. <Mansoor Cerna - Last Filed: 08/08/17 05:44> - Discharge Dispostion Admit: Yes <Aysha Camp - Last Filed: 08/08/17 23:11> Diagnosis at time of Disposition: CHF (congestive heart failure), Atrial fibrillation - Discharge Dispostion Condition at time of disposition: Guarded
[2017-08-08 03:28] LABS: BASO % 0.9 % (0-2.0); EOS % 1.3 % (0-4.5); HEMATOCRIT 33.5 % (32.4-45.2); HEMOGLOBIN 10.6 GM/dL (10.7-15.3); LYMPH % 11.8 % (8-40); MCH 24.5 pg (25.7-33.7); MCHC 31.7 g/dl (32.0-36.0); MEAN CELL VOLUME 77.2 fl (80-96); MEAN PLT VOLUME 7.7 fl (7.5-11.1); MONO % 7.9 % (3.8-10.2); NEUT % 78.1 % (42.8-82.8); PLATELET COUNT 199 K/MM3 (134-434); RBC 4.34 M/mm3 (3.60-5.2); RDW 18.1 % (11.6-15.6); WHITE BLOOD COUNT 5.1 K/mm3 (4.0-10.0)
[2017-08-08 04:03] LABS: ALBUMIN 3.6 g/dl (3.4-5.0); ALK PHOS 114 U/L (45-117); ANION GAP 12 (8-16); BILIRUBIN,TOTAL 0.5 mg/dL (0.2-1.0); BLOOD UREA NITROGEN 13 mg/dL (7-18); CALCIUM 8.8 mg/dL (8.5-10.1); CHLORIDE 105 mmol/L (98-107); CO2 25 mmol/L (21-32); CREATININE 0.7 mg/dL (0.55-1.02); GLUCOSE,RANDOM 108 mg/dL (74-106); SGPT/ALT 25 U/L (12-78); SODIUM 142 mmol/L (136-145); TOT PROT 7.7 g/dl (6.4-8.2)
[2017-08-08 04:04] LABS: POTASSIUM 4.2 mmol/L (3.5-5.1)
[2017-08-08 04:05] LABS: SGOT/AST 36 U/L (15-37)
[2017-08-08] MEDS ORDERED: AZITHROMYCIN 250 MG TABLET PO ONE (06:11)
--- NOTE | 2017-08-08 06:13 | HP ---
CHIEF COMPLAINT: cough, sob PCP: dr calle HISTORY OF PRESENT ILLNESS:67 year old female with a significant past medical history of HTN, AFib, diastolic CHF, anemia, who presents to the ED with complaints of shortness of breath that woke her up in middle of night. It happen once and got better by the time she reached hospital. Denies orthopnea, denies getting sob on walking, sleeps with one pillow, denies swelling in leg. Patient also reports sore throat and cough producing white phlem since . Denies fever, chills. Denies difficulty in swallowing. States she has runny nose and sneezing also but not any more. Patient states she was discontinued from her blood thinners due to being diagnosed with anemia 1 year ago. Denies chest pain, Sob. Denies nausea, vomiting. Denies fevers, chills. Denies trauma to affected area. Denies out of state travelling. Denies any other symptoms. Allergies: Penicillins Social history: No smoking. No alcohol. No illicit drugs. Surgical history: 2 miscarriages with D&C PMD: Dr. Vargas ER course was notable for: (1)cbc, cmp, cxr 2 rapid test strep throat Recent Travel: no PAST MEDICAL HISTORY: as above Family History: na Allergies Penicillins Allergy (Verified 06/02/16 09:55) HOME MEDICATIONS: Home Medications Medication Instructions Recorded Metoprolol Tartrate 12.5 mg PO DAILY 08/08/17 REVIEW OF SYSTEMS CONSTITUTIONAL: Absent: fever, chills, diaphoresis, generalized weakness, malaise, loss of appetite, weight change HEENT: Absent: rhinorrhea, nasal congestion, mouth swelling, ear pain, eye pain, visual changes CARDIOVASCULAR: Absent: chest pain, syncope, palpitations, irregular heart rate, lightheadedness , peripheral edema RESPIRATORY: Absent: dyspnea with exertion, orthopnea, wheezing, stridor, hemoptysis GASTROINTESTINAL: Absent: abdominal pain, abdominal distension, nausea, vomiting, diarrhea, constipation, GENITOURINARY: Absent: dysuria, frequency, urgency, hesitancy, NEUROLOGIC: Absent: headache, focal weakness or paresthesias, dizziness, unsteady gait, seizure, mental status changes, bladder or bowel incontinence PSYCHIATRIC: Absent: anxiety, depression, . PHYSICAL EXAMINATION Vital Signs - 24 hr 08/08/17 00:50 Temperature 97.9 F Pulse Rate 82 Respiratory 21 Rate Blood Pressure 149/78 O2 Sat by Pulse 98 Oximetry (%) GENERAL: Awake, alert, and fully oriented, in no acute distress. HEAD: Normal with no signs of trauma. EYES: Pupils equal, round and reactive to light, EARS, NOSE, THROAT: pharyngeal erythema NECK: Normal range of motion, supple without lymphadenopathy, JVD, or masses. LUNGS: mild crackels on left side, no wheez, good air entry HEART:s1s2 normal irregular ABDOMEN: Soft, nontender, not distended, normoactive bowel sounds, no guarding, no rebound, no masses. MUSCULOSKELETAL: Normal range of motion at all joints. UPPER EXTREMITIES: 2+ pulses, warm, well-perfused. No cyanosis. No clubbing LOWER EXTREMITIES: , warm, well-perfused. SKIN: Warm, dry, Laboratory Results - last 24 hr 08/08/17 08/08/17 08/08/17 03:21 03:21 03:24 WBC 5.1 D RBC 4.34 Hgb 10.6 L Hct 33.5 MCV 77.2 L MCH 24.5 L MCHC 31.7 L RDW 18.1 H D Plt Count 199 D MPV 7.7 Neutrophils % 78.1 D Lymphocytes % 11.8 D Monocytes % 7.9 Eosinophils % 1.3 Basophils % 0.9 Sodium 142 Potassium 4.2 Chloride 105 Carbon Dioxide 25 Anion Gap 12 BUN 13 Creatinine 0.7 Creat Clearance w eGFR > 60 Random Glucose 108 H Calcium 8.8 Total Bilirubin 0.5 D AST 36 ALT 25 Alkaline Phosphatase 114 B-Natriuretic Peptide 440.68 H Total Protein 7.7 Albumin 3.6 ASSESSMENT/PLAN: 67 year old female with a significant past medical history of HTN, AFib, diastolic CHF, anemia, who presents to the ED with complaints of shortness of breath that woke her up in middle of night. and sore throat. Sore throat. h/o D chf h/o afib crackels on left side. Plan Insentive spirometry ( crackels more likely from atelectasis, patient doesn't appear to be in heart failure ) Sore could be viral vs bacterial. Strep test pending, Azithro for 5 days. gargles with luke warm water. Afib stable, rate control, not on ac because of anemia, stopped b her pcp. sodium controlled daily weight. patient ambulatory. Dispo: obs Visit type - Emergency Visit Emergency Visit: Yes Care time: The patient presented to the Emergency Department on the above date and was hospitalized for further evaluation of their emergent condition. - New Patient This patient is new to me today: Yes Date on this admission: 08/08/17 - Critical Care Critical Care patient: No Hospitalist Screening - Colonoscopy Questionnaire Colonoscopy Questionnaire: Colonoscopy Questionnaire - Patient: 50 - 75 years old and never had a screening colonoscopy: Unknown History of colon or rectal polyps, or CA: Unknown History of IBD, Crohn's disease or UC: Unknown History of abdominal radiation therapy as a child: Unknown - Relative: 1 with colon or rectal CA, or polyps at age 60 or younger: Unknown Colon or rectal CA diagnosed at age 45 or younger: Unknown Multiple relatives with colon or rectal CA: Unknown - Outcome: Screening Result: Negative Screen
[2017-08-08] MEDS ORDERED: AZITHROMYCIN 250 MG TABLET ONE (06:31)
--- NOTE | 2017-08-08 06:31 | PN ---
Teaching Attending Note Name of Resident: Jordon Mcpherson ATTENDING PHYSICIAN STATEMENT I saw and evaluated the patient. I reviewed the resident's note and discussed the case with the resident. I agree with the resident's findings and plan as documented. SUBJECTIVE: 67F pmh diastolic HF, Afib comes in for SOB woke her up from sleep. no palpitations. no chest pain. does have sorethroat and cough with productive white sputum for past few days. Also had episode of SOB when walking from her home to grocery store and back yesterday. No orthopnea PND or leg swelling OBJECTIVE: Gen: NAD able to lay flat without developing dyspnea CV: irregularly irregular 2/6 murmur holosystolic at LLSB Lungs: Crackles at LL base. Rt side clear. faint late exp wheezes bilateral abd: soft NTND Ext: no edema BNP 450 CXR: RLL opacification likely atelectasis ASSESSMENT AND PLAN: 67F with SOB, but clinically does not appear to be in decompensated Heart failure. elevated BNP but no baseline. 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
[2017-08-08] MEDS ORDERED: BENZOCAINE/MENTH/CETYLPYRD CL 1 EACH LOZENGE MM PRN (06:32)
[2017-08-08 09:01] LABS: PHOSPHOROUS 4.1 mg/dL (2.5-4.9)
[2017-08-08] MEDS ORDERED: metoPROLOL SUCCINATE 25 MG TAB.SR.24H (FP) PO SCH (10:00)
[2017-08-08] MEDS: metoPROLOL SUCCINATE 25 MG TAB.SR.24H (FP) PO SCH (11:21)
--- NOTE | 2017-08-08 11:36 | PN ---
Teaching Attending Note Name of Resident: Salima Deal ATTENDING PHYSICIAN STATEMENT I saw and evaluated the patient. I reviewed the resident's note and discussed the case with the resident. I agree with the resident's findings and plan as documented. SUBJECTIVE: patient seen and examined, breathing with some improvement, no new complaints. OBJECTIVE: Vital Signs Period Temp Pulse Resp BP Sys/Hinojosa Pulse Ox Last 24 Hr 97.9 F-98.9 F 82-90 18-21 149-151/78-93 95-98 Intake & Output 08/05/17 08/06/17 08/07/17 08/08/17 23:59 23:59 23:59 23:59 Weight 122 lb General: sitting in bed in no acute distress neck: no JVD visualized. Chest: left basilar rales Abdomen: soft, NT, ND, positive bowel sounds extremities; trace pedal edema Home Medication List Medication Instructions Recorded Confirmed Type Metoprolol Tartrate 12.5 mg PO DAILY 08/08/17 08/08/17 History Active Medications Generic Name Dose Route Start Last Admin Trade Name Freq PRN Reason Stop Dose Admin Benzocaine/Menthol 1 each 08/08/17 06:32 Cepacol Lozenge - MM Q2H PRN SORE THROAT Furosemide 20 mg 08/08/17 11:55 Lasix Injection - IVPUSH 08/08/17 11:56 ONCE ONE Ipratropium [place] 1 amp 08/08/17 08:00 Atrovent 0.02% Nebulizer - NEB RQID BRITANY Levofloxacin 500 mg 08/08/17 10:00 08/08/17 11:21 Levaquin - PO 500 mg DAILY@0600 BRITANY Administration Metoprolol Succinate 12.5 mg 08/08/17 10:00 08/08/17 11:21 Toprol Xl - PO 12.5 mg DAILY BRITANY Administration Laboratory Results - last 24 hr 08/08/17 08/08/17 08/08/17 03:21 03:21 03:24 WBC 5.1 D RBC 4.34 Hgb 10.6 L Hct 33.5 MCV 77.2 L MCH 24.5 L MCHC 31.7 L RDW 18.1 H D Plt Count 199 D MPV 7.7 Neutrophils % 78.1 D Lymphocytes % 11.8 D Monocytes % 7.9 Eosinophils % 1.3 Basophils % 0.9 Sodium 142 Potassium 4.2 Chloride 105 Carbon Dioxide 25 Anion Gap 12 BUN 13 Creatinine 0.7 Creat Clearance w eGFR > 60 Random Glucose 108 H Calcium 8.8 Phosphorus Magnesium Total Bilirubin 0.5 D AST 36 ALT 25 Alkaline Phosphatase 114 B-Natriuretic Peptide 440.68 H Total Protein 7.7 Albumin 3.6 08/08/17 08:00 WBC RBC Hgb Hct MCV MCH MCHC RDW Plt Count MPV Neutrophils % Lymphocytes % Monocytes % Eosinophils % Basophils % Sodium Potassium Chloride Carbon Dioxide Anion Gap BUN Creatinine Creat Clearance w eGFR Random Glucose Calcium Phosphorus 4.1 Magnesium 2.0 Total Bilirubin AST ALT Alkaline Phosphatase B-Natriuretic Peptide Total Protein Albumin Microbiology 08/08/17 02:00 Throat Group A Strep Rapid Antigen - Final ASSESSMENT AND PLAN: 67 yof with PMHx of HTN, Diastolic HF, Afib not on AC, comes with dyspnea and recent URI illness -Dyspnea, suspect underlying interstitial lung disease compounded by URI/ Possible early LLE PNA, +/- acute diastolic HF -HTN -Afib not on anti-coagulation. Plan: Cardiology input appreciated. CT chest to address underlying possible interstitial lung disease/pulmonary HTN. Repeat 2D echo. Pulmonary consult. Trial with lasix 20 mg IV x 1. Levaquin emperic, check urine PNA studies. no indication for tamiflu currently. Continue lopressor. Attempted to call pharmacy to reconcile meds. Add DVTPPx with SCDs. Heparin if inhouse > 48 hours dispo planning pending above, in 24-48 hours if no new concerns. Plan discussed with patient in detail, all questions answered.
[2017-08-08] MEDS ORDERED: FUROSEMIDE 40 MG/4 ML INJECTABLE VIAL IVPUSH ONE (11:55)
--- NOTE | 2017-08-08 13:06 | CON.PULM ---
Consult Consult Specialty:: PULMONARY Referred by:: Dr. Deal Reason for Consultation:: shortness of breath - History of Present Illness Chief Complaint: shortness of breath History of Present Illness: 67yo female with h/o HTN, atrial fibrillation, LV diastolic dysfunction, anemia who presents with worsening shortness of breath that awoke her last night. She states that she has had breathing issues ever since she was hospitalized with pneumonia 41 years ago. No chest pain or palpitations. No fevers, chills or sweats but endorses sore throat and a cough productive of white sputum. No sick contacts or recent travel. CXR here showing interstitial changes. Her last CT chest was in 2016 which showed very mild interstitial changes. She is a remote smoker started at age 12, quit after 7 yrs. Originally from [facility] [place], immigrated here when she was 18. 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 No factory or construction work. Has 2 dogs, 1 cat, no birds at home. In [place] [facility] [place], did have exposure to wood burning indoor stoves. - History Source History Provided By: Patient, Medical Record Limitations to Obtaining History: No Limitations - Past Medical History Cardio/Vascular: Yes: AFIB (sp ablation), HTN, Other ("irregular heart beat" possible ablation) - Alcohol/Substance Use Hx Alcohol Use: No - Smoking History Smoking history: Never smoked Have you smoked in the past 12 months: No Aproximately how many cigarettes per day: 0 - Social History ADL: Independent History of Recent Travel: No Home Medications - Allergies Allergies/Adverse Reactions: Allergies Allergy/AdvReac Type Severity Reaction Status Date / Time Penicillins Allergy Verified 06/02/16 09:55 - Home Medications Home Medications: Ambulatory Orders Metoprolol Tartrate 12.5 mg PO DAILY 08/08/17 Review of Systems - Review of Systems Constitutional: reports: Weakness. denies: Chills, Fever Eyes: denies: Recent Change in Vision HENT: denies: Nasal Congestion, Throat Pain Neck: denies: Stiffness, Tenderness Cardiovascular: reports: Shortness of Breath. denies: Chest Pain, Edema, Palpitations Respiratory: reports: Cough, SOB, SOB on Exertion, Wheezing. denies: Hemoptysis Gastrointestinal: denies: Abdominal Pain, Nausea, Vomiting Genitourinary: denies: Dysuria, Hematuria Neurological: denies: Dizziness, Headache Physical Exam Vital Sings: Vital Signs Temperature 98.5 F 08/08/17 12:57 Pulse Rate 93 H 08/08/17 12:57 Respiratory Rate 18 08/08/17 12:57 Blood Pressure 127/80 08/08/17 12:57 O2 Sat by Pulse Oximetry (%) 95 08/08/17 06:35 Constitutional: Yes: Calm Eyes: Yes: Conjunctiva Clear, EOM Intact HENT: Yes: Atraumatic, Normocephalic Neck: Yes: Supple, Trachea Midline Cardiovascular: Yes: Regular Rate and Rhythm Respiratory: Yes: Regular, Rales (basilar coarse) ...Clubbing: No Gastrointestinal: Yes: Normal Bowel Sounds, Soft. No: Tenderness Edema: No Labs: CBC, BMP 08/08/17 03:21 08/08/17 03:21 Imaging - Results Chest X-ray: Report Reviewed, Image Reviewed (interstitial changes) Assessment/Plan r/o Interstitial Lung Disease r/o Pneumonia Atrial Fibrillation HTN LV Diastolic Dysfunction - agree with CT chest noncontrast - empiric antibiotics - f/u cultures - inhaled bronchodilators - will start empiric steroids for at least 24 hrs - O2 to keep SpO2 >90% - will need outpt PFTs and further work up - DVT prophylaxis Thank you for this consult Ra Rangel MD
--- NOTE | 2017-08-08 13:49 | CON.CARD ---
Consult Consult Specialty:: Cardiology for Dr. Leigh Referred by:: Hospitalist Reason for Consultation:: SOB/cough - History of Present Illness Chief Complaint: SOB/Cough History of Present Illness: 67 year old woman h/o CAD, Afib, GI bleed, likely interstitial lung disease admitted with progressively worsening sob and cough for the past few days. pt seen and examined today in nad. states her sob worsened until yesterday when she was very sob with minimal exertion. denies any chest pain, no edema. no pnd , orthponea. - History Source History Provided By: Patient, Family Member Limitations to Obtaining History: No Limitations - Past Medical History Cardio/Vascular: Yes: AFIB (sp ablation), CHF, HTN, Other ("irregular heart beat " possible ablation) ...: No - Alcohol/Substance Use Hx Alcohol Use: No - Smoking History Smoking history: Never smoked Have you smoked in the past 12 months: No Aproximately how many cigarettes per day: 0 - Social History ADL: Independent History of Recent Travel: No Home Medications - Allergies Allergies/Adverse Reactions: Allergies Allergy/AdvReac Type Severity Reaction Status Date / Time Penicillins Allergy Verified 06/02/16 09:55 - Home Medications Home Medications: Ambulatory Orders Metoprolol Tartrate 12.5 mg PO DAILY 08/08/17 Family Disease History - Family Disease History Family History: Denies Review of Systems - Review of Systems Constitutional: denies: No Symptoms, Chills, Diaphoresis, Fever, Lethargy, Loss of Appetite, Malaise, Night Sweats, Unintentional Wgt. Loss, Weakness, Other Eyes: denies: No Symptoms, Blind Spots, Blurred Vision, Double Vision, Eye Pain , Floaters, Photophobia, Recent Change in Vision, Other HENT: denies: No Symptoms, Difficult Swallowing, Ear Discharge, Ear Pain, Epistaxis, Gingival Bleeding, Hearing Loss, Mouth Swelling, Nasal Congestion, Ocular Prosthesis, Throat Pain, Toothache, Ringing in Ears, Other Neck: denies: No Symptoms, Decreased ROM, Lumps, Pain on Movement, Stiffness, Swollen Glands, Tenderness, Other Cardiovascular: reports: Shortness of Breath. denies: No Symptoms, Chest Pain, Edema, Palpitations, Other Respiratory: reports: Cough, Exercise Intolerance, SOB, SOB on Exertion. denies : No Symptoms, Hemoptysis, Orthopnea, PND, Snoring, Wheezing, Other Gastrointestinal: denies: No Symptoms, Abdominal Pain, Bloating, Constipation, Diarrhea, Dysphagia, Indigestion, Melena, Nausea, Rectal Bleeding, Vomiting, Vomiting Blood, Other Genitourinary: denies: No Symptoms, Burning, Discharge, Dysuria, Flank Pain, Frequency, Hematuria, Incontinence, Lesions, Menses, Pain, Testicular Mass, Testicular Pain, Testicular Swelling, Urgency, Vaginal Bleeding, Other Breasts: denies: No Symptoms Reported, See HPI, Breast Implants, Discharge from Nipple, Lumps, Pain, Skin Changes, Other Musculoskeletal: denies: No Symptoms, Back Pain, Crepitus, Decreased ROM, Extremity Pain, Joint Pain, Joint Swelling, Muscle Pain, Muscle Cramps, Muscle Weakness, Other Integumentary: denies: No Symptoms, Blister, Bruising, Change in Color, Eczema, Erythema, Incision, Lesions, Lump, Pallor, Pruritis, Rash, Wound, Other Neurological: denies: No Symptoms, Change in LOC, Change in Speech, Confusion, Dizziness, Headache, Incoordination, Numbness, Parasthesia, Pre-Existing Deficit , Seizure, Syncope, Tremors, Unsteady Gait, Weakness, Other Endocrine: denies: No Symptoms, Excessive Sweating, Flushing, Increased Hunger, Increased Thirst, Intolerance to Cold, Intolerance to Heat, Unexplained Weight Gain, Unexplained Weight Loss, Other Hematology/Lymphatic: denies: No Symptoms, Easily Bruised, Excessive Bleeding, Swollen Glands, Other Psychiatric: denies: No Symptoms, Altered Sleep Pattern, Anxiety, Depression, Hallucinations, Panic, Paranoia, Suicidal, Other Vital Signs: Vital Signs Temperature 98.5 F 08/08/17 12:57 Pulse Rate 93 H 08/08/17 12:57 Respiratory Rate 18 08/08/17 12:57 Blood Pressure 127/80 08/08/17 12:57 O2 Sat by Pulse Oximetry (%) 95 08/08/17 06:35 Constitutional: Yes: No Distress, Calm Eyes: Yes: Conjunctiva Clear, EOM Intact, PERRL HENT: Yes: Atraumatic, Normocephalic Neck: Yes: Supple, Trachea Midline Respiratory: Yes: Regular, Diminished, Other (crackles throughout). No: SOB Gastrointestinal: Yes: Normal Bowel Sounds, Soft. No: Distention, Tenderness Cardiovascular: Yes: Pulse Irregular. No: Regular Rate and Rhythm, Bradycardia , Tachycardia, Gallop, Rub, Varicosities JVD: No Carotid Bruit: No PMI: Non-Displaced Heart Sounds: Yes: S1, S2. No: Split S2, S3, S4, Clicks, Gallop, Rub, Bruit Murmur: Yes: Systolic Murmur Extremities: Yes: WNL Edema: No Peripheral Pulses WNL: Yes Peripheral Pulses: 2+ Left Doralis Pedis, 2+ Right Dorsalis Pedis Neurological: Yes: Alert, Oriented Psychiatric: Yes: Alert, Oriented - Other Data Labs, Other Data: CBC, BMP 08/08/17 03:21 08/08/17 03:21 Troponin, BNP 08/08/17 03:24 B-Natriuretic Peptide 440.68 H Troponin, BNP 08/08/17 03:24 B-Natriuretic Peptide 440.68 H ekg-reviewed Echo: Report Reviewed Imaging - Results Chest X-ray: Report Reviewed, Image Reviewed EKG: Report Reviewed, Image Reviewed Other: Report Reviewed, Image Reviewed Assessment/Plan 67 year old woman h/o CAD, Afib, GI bleed, likely interstitial lung disease admitted with progressively worsening sob and cough for the past few days. pt seen and examined today in nad. states her sob worsened until yesterday when she was very sob with minimal exertion. denies any chest pain, no edema. no pnd , orthponea. SOB-multiple possible etiologies -concern for interstitial lung disease -pt does not appear significantly clinically volume overloaded however may have a degree of acute on chronic diastolic CHF superimposed on chronic lung disease -hold off on diuresis for now -CT chest to further evaluate -pulmonary evaluation Atrial fibrillation-HR adequately controlled -cont Toprol XL 12.5mg daily for now -not on AC due to history of GI bleed with prior lesions on EGD requiring cautery and clipping -close outpatient follow up Coronary artery disease - not on AC due to GI bleeding -close outpatient follow up
--- NOTE | 2017-08-08 14:21 | EKG ---
Test Reason : Blood Pressure : / mmHG Vent. Rate : 075 BPM Atrial Rate : 065 BPM P-R Int : 000 ms QRS Dur : 090 ms QT Int : 398 ms P-R-T Axes : 000 113 071 degrees QTc Int : 444 ms ATRIAL FIBRILLATION RIGHT AXIS DEVIATION ABNORMAL ECG WHEN COMPARED WITH ECG OF 04-JUN-2016 12:34, NO SIGNIFICANT CHANGE WAS FOUND Confirmed by MD DAVID, JASPER ([id number]) on 08/08/2017 2:21:00 PM Referred By: Confirmed By:JASPER HERNANDEZ MD
[2017-08-08] MEDS ORDERED: FUROSEMIDE 40 MG/4 ML INJECTABLE VIAL ONE (14:24)
[2017-08-08] MEDS: IPRATROPIUM BR 0.02% 0.5 MG/2.5 ML VIAL.NEB. NEB SCH (14:56)
[2017-08-08] MEDS: methylPREDNISolone NA SUCC 40 MG/1 ML VIAL IVPUSH SCH ×2 (14:57→17:20)
[2017-08-08] MEDS: ALBUTEROL SO4 2.5/IPRATROPIUM 0.5 INH SOL 3 ML VIAL.NEB. NEB SCH (16:25)
[2017-08-09] MEDS: methylPREDNISolone NA SUCC 40 MG/1 ML VIAL IVPUSH SCH ×2 (01:19→09:04)
[2017-08-09 06:39] LABS: BASO % 0.2 % (0-2.0); HEMATOCRIT 32.6 % (32.4-45.2); HEMOGLOBIN 10.7 GM/dL (10.7-15.3); LYMPH % 7.8 % (8-40); MCH 25.2 pg (25.7-33.7); MCHC 32.8 g/dl (32.0-36.0); MEAN CELL VOLUME 76.8 fl (80-96); MEAN PLT VOLUME 7.8 fl (7.5-11.1); PLATELET COUNT 220 K/MM3 (134-434); RBC 4.24 M/mm3 (3.60-5.2); RDW 18.1 % (11.6-15.6); WHITE BLOOD COUNT 4.3 K/mm3 (4.0-10.0)
--- NOTE | 2017-08-09 06:59 | PN ---
Physical Exam: SUBJECTIVE: OBJECTIVE: Vital Signs Period Temp Pulse Resp BP Sys/Hinojosa Pulse Ox Last 24 Hr 98.5 F-98.9 F 90-101 18-20 119-137/65-80 96-97 GENERAL: The patient is awake, alert, and fully oriented, in no acute distress. HEAD: Normal with no signs of trauma. EYES: PERRL, extraocular movements intact, sclera anicteric, conjunctiva clear. No ptosis. ENT: Ears normal, nares patent, oropharynx clear without exudates, moist mucous membranes. NECK: Trachea midline, full range of motion, supple. LUNGS: Breath sounds equal, clear to auscultation bilaterally, no wheezes, no crackles, no accessory muscle use. HEART: Regular rate and rhythm, S1, S2 without murmur, rub or gallop. ABDOMEN: Soft, nontender, nondistended, normoactive bowel sounds, no guarding, no rebound, no hepatosplenomegaly, no masses. EXTREMITIES: 2+ pulses, warm, well-perfused, no edema. NEUROLOGICAL: Cranial nerves II through XII grossly intact. Normal speech, gait not observed. PSYCH: Normal mood, normal affect. SKIN: Warm, dry, normal turgor, no rashes or lesions noted Laboratory Results - last 24 hr 08/08/17 08/09/17 08:00 06:25 WBC 4.3 RBC 4.24 Hgb 10.7 Hct 32.6 MCV 76.8 L MCH 25.2 L MCHC 32.8 RDW 18.1 H Plt Count 220 MPV 7.8 Neutrophils % 91.0 H Lymphocytes % 7.8 L D Monocytes % 1.0 L D Eosinophils % 0.0 D Basophils % 0.2 Phosphorus 4.1 Magnesium 2.0 Active Medications Generic Name Dose Route Start Last Admin Trade Name Freq PRN Reason Stop Dose Admin Albuterol/Ipratropium 1 amp 08/08/17 16:00 08/08/17 16:25 Duoneb - NEB 1 amp RQID BRITANY Administration Benzocaine/Menthol 1 each 08/08/17 06:32 Cepacol Lozenge - MM Q2H PRN SORE THROAT Levofloxacin 500 mg 08/08/17 10:00 08/09/17 05:36 Levaquin - PO 500 mg DAILY@0600 BRITANY Administration Methylprednisolone Sodium Succinate 40 mg 08/08/17 13:45 08/09/17 01:19 Solu-Medrol - IVPUSH 40 mg Q8H-IV BRITANY Administration Metoprolol Succinate 12.5 mg 08/08/17 10:00 08/08/17 11:21 Toprol Xl - PO 12.5 mg DAILY BRITANY Administration ASSESSMENT/PLAN:
[2017-08-09 07:19] LABS: ALBUMIN 3.5 g/dl (3.4-5.0); ANION GAP 13 (8-16); BLOOD UREA NITROGEN 12 mg/dL (7-18); CALCIUM 9.1 mg/dL (8.5-10.1); CHLORIDE 103 mmol/L (98-107); CO2 23 mmol/L (21-32); GLUCOSE,RANDOM 144 mg/dL (74-106); MAGNESIUM 1.9 mg/dL (1.8-2.4); SODIUM 139 mmol/L (136-145)
[2017-08-09 07:25] LABS: ALK PHOS 97 U/L (45-117); BILIRUBIN,TOTAL 0.8 mg/dL (0.2-1.0); CREATININE 0.8 mg/dL (0.55-1.02); PHOSPHOROUS 3.6 mg/dL (2.5-4.9); SGOT/AST 22 U/L (15-37); SGPT/ALT 23 U/L (12-78); TOT PROT 7.5 g/dl (6.4-8.2)
[2017-08-09 07:26] LABS: N-TERMINAL BNP 725.53 pg/ml (5-125)
[2017-08-09] MEDS: ALBUTEROL SO4 2.5/IPRATROPIUM 0.5 INH SOL 3 ML VIAL.NEB. NEB SCH ×3 (07:54→16:46)
--- NOTE | 2017-08-09 08:53 | PN ---
Teaching Attending Note Name of Resident: Ashley Tao ATTENDING PHYSICIAN STATEMENT Time of evaluation: 10;15 AM I saw and evaluated the patient. I reviewed the resident's note and discussed the case with the resident. I agree with the resident's findings and plan as documented with exceptions mentioned below. SUBJECTIVE: Patient seen and examined. breathing improved, no new concerns. OBJECTIVE: Vital Signs Period Temp Pulse Resp BP Sys/Hinojosa Pulse Ox Last 24 Hr 98.0 F-98.9 F 93-101 18-20 115-127/57-80 96-97 Intake & Output 08/06/17 08/07/17 08/08/17 08/09/17 23:59 23:59 23:59 23:59 Intake Total 600 100 Output Total 300 200 Balance 300 -100 Weight 123 lb 11.2 oz 120 lb 4.8 oz General: sitting in bed in no acute distress Chest: left basilar to midlung rales, otherwise CTAb, no wheezing Home Medication List Medication Instructions Recorded Confirmed Type Metoprolol Tartrate 12.5 mg PO DAILY 08/08/17 08/08/17 History Active Medications Generic Name Dose Route Start Last Admin Trade Name Freq PRN Reason Stop Dose Admin Albuterol/Ipratropium 1 amp 08/08/17 16:00 08/09/17 07:54 Duoneb - NEB Not Given RQID BRITANY Benzocaine/Menthol 1 each 08/08/17 06:32 Cepacol Lozenge - MM Q2H PRN SORE THROAT Levofloxacin 500 mg 08/08/17 10:00 08/09/17 05:36 Levaquin - PO 500 mg DAILY@0600 BRITANY Administration Methylprednisolone Sodium Succinate 40 mg 08/08/17 13:45 08/09/17 01:19 Solu-Medrol - IVPUSH 40 mg Q8H-IV BRITANY Administration Metoprolol Succinate 12.5 mg 08/08/17 10:00 08/08/17 11:21 Toprol Xl - PO 12.5 mg DAILY BRITANY Administration Laboratory Results - last 24 hr 08/08/17 08/09/17 08/09/17 08:00 06:25 06:25 WBC 4.3 RBC 4.24 Hgb 10.7 Hct 32.6 MCV 76.8 L MCH 25.2 L MCHC 32.8 RDW 18.1 H Plt Count 220 MPV 7.8 Neutrophils % 91.0 H Lymphocytes % 7.8 L D Monocytes % 1.0 L D Eosinophils % 0.0 D Basophils % 0.2 Sodium 139 Potassium 4.0 Chloride 103 Carbon Dioxide 23 Anion Gap 13 BUN 12 Creatinine 0.8 Creat Clearance w eGFR > 60 Random Glucose 144 H Calcium 9.1 Phosphorus 4.1 3.6 Magnesium 2.0 1.9 Total Bilirubin 0.8 D AST 22 ALT 23 Alkaline Phosphatase 97 B-Natriuretic Peptide 725.53 H Total Protein 7.5 Albumin 3.5 Microbiology 08/08/17 02:00 Throat Group A Strep Rapid Antigen - Final CT chest results pending ASSESSMENT AND PLAN: 67 yof with PMHx of HTN, Diastolic HF, Afib not on AC, comes with dyspnea and recent URI illness -Dyspnea, suspect underlying interstitial lung disease compounded by URI/ Possible early LLL PNA, +/- acute diastolic HF -HTN -Afib not on anti-coagulation. Plan: Cardiology input appreciated. CT chest noted, follow up 2D echo. Levaquin day 3. Discuss with Dr. Mendoza, transition to oral steroids, will need outpatient follow up to address further w/u interstitial lung disease. Trial with lasix 20 mg IV x 1 on 08/08, hold additional diuresis for now. No indication for tamiflu currently. Continue lopressor. Reconcile home meds. DVTPPx with SCDs. Add lovenox for DVTPPx dispo planning pending pulmonary recs Plan discussed with patient in detail, all questions answered.
[2017-08-09] MEDS: metoPROLOL SUCCINATE 25 MG TAB.SR.24H (FP) PO SCH (09:04)
[2017-08-09] MEDS ORDERED: ENOXAPARIN NA (PORCINE) 40 MG/0.4 ML DISP.SYRIN SQ SCH (10:00)
--- NOTE | 2017-08-09 12:46 | PN ---
Progress Note, Physician History of Present Illness: 67 year old woman h/o CAD, Afib, GI bleed, likely interstitial lung disease admitted with progressively worsening sob and cough for the past few days. pt seen and examined today in nad. states her sob worsened until yesterday when she was very sob with minimal exertion. denies any chest pain, no edema. no pnd , orthponea. - Current Medication List Current Medications: Active Medications Albuterol/Ipratropium (Duoneb -) 1 amp NEB RQID [facility] Last Admin: 08/09/17 11:25 Dose: Not Given Benzocaine/Menthol (Cepacol Lozenge -) 1 each MM Q2H PRN PRN Reason: SORE THROAT Enoxaparin Sodium (Lovenox -) 40 mg SQ DAILY [facility] Last Admin: 08/09/17 09:04 Dose: 40 mg Levofloxacin (Levaquin -) 500 mg PO DAILY@0600 [facility] Last Admin: 08/09/17 05:36 Dose: 500 mg Methylprednisolone Sodium Succinate (Solu-Medrol -) 40 mg IVPUSH Q8H-IV [facility] Last Admin: 08/09/17 09:04 Dose: 40 mg Metoprolol Succinate (Toprol Xl -) 12.5 mg PO DAILY [facility] Last Admin: 08/09/17 09:04 Dose: 12.5 mg - Objective Vital Signs: Vital Signs Temperature 98.6 F 08/09/17 08:00 Pulse Rate 136 H 08/09/17 08:56 Respiratory Rate 18 08/09/17 08:00 Blood Pressure 117/62 08/09/17 08:00 O2 Sat by Pulse Oximetry (%) 94 L 08/09/17 08:56 Eyes: Yes: WNL, Conjunctiva Clear, EOM Intact HENT: Yes: WNL, Atraumatic, Normocephalic Neck: Yes: WNL, Supple, Trachea Midline Cardiovascular: Yes: Pulse Irregular, Murmur, S1, S2 Respiratory: Yes: WNL, Regular, CTA Bilaterally Gastrointestinal: Yes: WNL, Normal Bowel Sounds Genitourinary: Yes: WNL Musculoskeletal: Yes: WNL Extremities: Yes: WNL Edema: No Integumentary: Yes: WNL Neurological: Yes: WNL, Alert, Oriented ...Motor Strength: WNL Psychiatric: Yes: WNL Labs: CBC, BMP 08/09/17 06:25 08/09/17 06:25 Assessment/Plan 67 year old woman h/o CAD, Afib, GI bleed, likely interstitial lung disease admitted with progressively worsening sob and cough for the past few days. pt seen and examined today in nad. states her sob worsened until yesterday when she was very sob with minimal exertion. denies any chest pain, no edema. no pnd , orthponea. SOB-multiple possible etiologies -concern for interstitial lung disease -pt does not appear significantly clinically volume overloaded however may have a degree of acute on chronic diastolic CHF superimposed on chronic lung disease -hold off on diuresis for now -CT chest to further evaluate -pulmonary evaluation Atrial fibrillation-HR adequately controlled -cont Toprol XL 12.5mg daily for now -not on AC due to history of GI bleed with prior lesions on EGD requiring cautery and clipping -close outpatient follow up Coronary artery disease - not on AC due to GI bleeding -close outpatient follow up
--- NOTE | 2017-08-09 14:30 | PN ---
Progress Note, Physician History of Present Illness: pulmonary alert,feeling better,sob improved,-cp,min cough - Current Medication List Current Medications: Active Medications Albuterol/Ipratropium (Duoneb -) 1 amp NEB RQID [facility] Last Admin: 08/09/17 11:25 Dose: Not Given Benzocaine/Menthol (Cepacol Lozenge -) 1 each MM Q2H PRN PRN Reason: SORE THROAT Enoxaparin Sodium (Lovenox -) 40 mg SQ DAILY [facility] Last Admin: 08/09/17 09:04 Dose: 40 mg Levofloxacin (Levaquin -) 500 mg PO DAILY@0600 [facility] Last Admin: 08/09/17 05:36 Dose: 500 mg Methylprednisolone Sodium Succinate (Solu-Medrol -) 40 mg IVPUSH Q8H-IV [facility] Last Admin: 08/09/17 09:04 Dose: 40 mg Metoprolol Succinate (Toprol Xl -) 12.5 mg PO DAILY [facility] Last Admin: 08/09/17 09:04 Dose: 12.5 mg - Objective Vital Signs: Vital Signs Temperature 98.6 F 08/09/17 08:00 Pulse Rate 136 H 08/09/17 08:56 Respiratory Rate 18 08/09/17 08:00 Blood Pressure 117/62 08/09/17 08:00 O2 Sat by Pulse Oximetry (%) 94 L 08/09/17 08:56 Constitutional: Yes: Well Nourished, Calm Eyes: Yes: WNL HENT: Yes: WNL Neck: Yes: WNL Cardiovascular: Yes: Pulse Irregular, S1, S2 Respiratory: Yes: Diminished Gastrointestinal: Yes: Normal Bowel Sounds, Soft Extremities: Yes: WNL Edema: No Labs: CBC, BMP 08/09/17 06:25 08/09/17 06:25 - ....Imaging Cat Scan: Report Reviewed, Image Reviewed Problem List - Problems (1) Interstitial lung disease Code(s): J84.9 - INTERSTITIAL PULMONARY DISEASE, UNSPECIFIED (2) Cough Code(s): R05 - COUGH (3) Reactive airway disease Code(s): J45.909 - UNSPECIFIED ASTHMA, UNCOMPLICATED (4) Atrial fibrillation Code(s): I48.91 - UNSPECIFIED ATRIAL FIBRILLATION (5) Coronary artery disease Code(s): I25.10 - ATHSCL HEART DISEASE OF [place] CORONARY ARTERY W/O ANG PCTRS (6) Diastolic CHF Code(s): I50.30 - UNSPECIFIED DIASTOLIC (CONGESTIVE) HEART FAILURE (7) Dyspnea Code(s): R06.00 - DYSPNEA, UNSPECIFIED Assessment/Plan Assessment/Plan r/o Interstitial Lung Disease Atrial Fibrillation HTN LV Diastolic Dysfunction - empiric antibiotics - inhaled bronchodilators - prednisone 60mg daily - O2 to keep SpO2 >90% - will need outpt PFTs and further work up - DVT prophylaxis - echo DR CARRASCO
[2017-08-09 14:57] VITALS: BP 110/65; PULSE 88; TEMP 99.2
--- NOTE | 2017-08-09 14:59 | DS ---
Physical Exam: SUBJECTIVE: Patient seen and examined. No acute events overnight. Patient offers no new complaints. OBJECTIVE: Vital Signs Period Temp Pulse Resp BP Sys/Hinojosa Pulse Ox Last 24 Hr 98.0 F-98.9 F 90-136 18-20 115-121/57-67 94-97 PHYSICAL EXAM GENERAL: The patient is awake, alert, and fully oriented, in no acute distress. HEAD: Normal with no signs of trauma. EYES: PERRL, extraocular movements intact, sclera anicteric, conjunctiva clear. ENT:oropharynx clear without exudates, moist mucous membranes. NECK: supple. LUNGS: Left basilar rales, no wheezing, good air entry. HEART: tachy, irregular rhythm ABDOMEN: Soft, nontender, nondistended, normoactive bowel sounds, no guarding, no rebound, no hepatosplenomegaly, no masses. EXTREMITIES: 2+ pulses, warm, well-perfused, no edema. NEUROLOGICAL: Cranial nerves II through XII grossly intact. Normal speech, gait not observed. PSYCH: Normal mood, normal affect. SKIN: Warm, dry, normal turgor, no rashes or lesions noted. LABS Laboratory Results - last 24 hr 08/09/17 08/09/17 06:25 06:25 WBC 4.3 RBC 4.24 Hgb 10.7 Hct 32.6 MCV 76.8 L MCH 25.2 L MCHC 32.8 RDW 18.1 H Plt Count 220 MPV 7.8 Neutrophils % 91.0 H Lymphocytes % 7.8 L D Monocytes % 1.0 L D Eosinophils % 0.0 D Basophils % 0.2 Sodium 139 Potassium 4.0 Chloride 103 Carbon Dioxide 23 Anion Gap 13 BUN 12 Creatinine 0.8 Creat Clearance w eGFR > 60 Random Glucose 144 H Calcium 9.1 Phosphorus 3.6 Magnesium 1.9 Total Bilirubin 0.8 D AST 22 ALT 23 Alkaline Phosphatase 97 B-Natriuretic Peptide 725.53 H Total Protein 7.5 Albumin 3.5 HOSPITAL COURSE: Date of Admission:08/08/17 67 year old female with a significant past medical history of HTN, AFib, diastolic CHF, anemia, who presented to the ED with complaints of shortness of breath, sore throat and cough producing white phlegm. Patient was treated for early LLL pneumonia and acute diastolic chf exacerbation. Date of Discharge: 08/09/17 Discharge Summary Reason For Visit: CHF, A-FIB Current Active Problems Dyspnea (Acute) Interstitial lung disease (Acute) Condition: Stable - Instructions Diet, Activity, Other Instructions: You were here because you were having difficulty breathing. We treated you with antibiotics and steroids. You will discharge you on steroids which will need to be tapered down in dosing. You will also need to complete your antibiotic treatment. You will need to follow up with your primary care physician in 1 week. You will also need to follow up with your Lung doctor in 2 weeks to run more studies for your lung. If you feel short of breath, or develop chest pain, dizziness, lightheadedness, please call your doctor immediately or go to the nearest emergency room. Referrals: Cayetano Vargas MD [Primary Care Provider] - 1 Week Disposition: HOME - Home Medications Comprehensive Discharge Medication List: Ambulatory Orders Metoprolol Tartrate 12.5 mg PO DAILY 08/08/17
--- NOTE | 2017-08-09 16:20 | DS ---
Physical Exam: SUBJECTIVE: Patient seen and examined. No acute events overnight. Patient offers no new complaints. OBJECTIVE: Vital Signs Period Temp Pulse Resp BP Sys/Hinojosa Pulse Ox Last 24 Hr 98.0 F-99.2 F 88-136 18-20 110-121/57-67 94-97 PHYSICAL EXAM GENERAL: The patient is awake, alert, and fully oriented, in no acute distress. HEAD: Normal with no signs of trauma. EYES: PERRL, extraocular movements intact, sclera anicteric, conjunctiva clear. ENT:oropharynx clear without exudates, moist mucous membranes. NECK: supple. LUNGS: Left basilar rales, no wheezing, good air entry. HEART: tachy, irregular rhythm ABDOMEN: Soft, nontender, nondistended, normoactive bowel sounds, no guarding, no rebound, no hepatosplenomegaly, no masses. EXTREMITIES: 2+ pulses, warm, well-perfused, no edema. NEUROLOGICAL: Cranial nerves II through XII grossly intact. Normal speech, gait not observed. PSYCH: Normal mood, normal affect. SKIN: Warm, dry, normal turgor, no rashes or lesions noted. LABS Laboratory Results - last 24 hr 08/09/17 08/09/17 06:25 06:25 WBC 4.3 RBC 4.24 Hgb 10.7 Hct 32.6 MCV 76.8 L MCH 25.2 L MCHC 32.8 RDW 18.1 H Plt Count 220 MPV 7.8 Neutrophils % 91.0 H Lymphocytes % 7.8 L D Monocytes % 1.0 L D Eosinophils % 0.0 D Basophils % 0.2 Sodium 139 Potassium 4.0 Chloride 103 Carbon Dioxide 23 Anion Gap 13 BUN 12 Creatinine 0.8 Creat Clearance w eGFR > 60 Random Glucose 144 H Calcium 9.1 Phosphorus 3.6 Magnesium 1.9 Total Bilirubin 0.8 D AST 22 ALT 23 Alkaline Phosphatase 97 B-Natriuretic Peptide 725.53 H Total Protein 7.5 Albumin 3.5 HOSPITAL COURSE: Date of Admission:08/08/17 67 year old female with a significant past medical history of HTN, AFib (not on AC because history of GI bleed), diastolic CHF, anemia, who presented to the ED with complaints of shortness of breath, sore throat and cough producing white phlegm. Patient was treated for early LLL pneumonia and acute diastolic chf exacerbation. Cardiology and Pulm consulted. Patien was given 1 dose of Lasix. Patient was also started on Levaquin 500mg daily (completed 2 days). Chest CT: Apical pleural capping is present bilaterally. Area of scarring versus platelike atelectasis within the right upper lobe anterolaterally. Area of scarring versus platelike atelectasis within the medial segment of the right middle lobe. Scarring versus platelike atelectasis noted within the right lateral costophrenic angle. Scarring versus platelike atelectasis noted within the left lower lobe. Mosaic attenuation is identified which could represent bronchiolar disease or interstitial fluid from CHF. Patient was also started on IV steroids. She will be discharged on prednisone taper and oral antibiotics for 3 more days. Patient medically cleared for discharge. Patient's questions and concerned answered. 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 Date of Discharge: 08/09/17 Minutes to complete discharge: 35 Discharge Summary Reason For Visit: CHF, A-FIB Current Active Problems Dyspnea (Acute) Interstitial lung disease (Acute) Condition: Stable - Instructions Diet, Activity, Other Instructions: You were here because you were having difficulty breathing. We treated you with antibiotics and steroids. You will be discharged on steroids which will need to be tapered down in dosing. 60mg Prednisone for 2 days. Stop 3/7 50mg for 2 days. Stop 3/9 40mg for 2 days. Stop 3/11 30mg for 2 days. Stop 3/13 20mg for 2 days. Stop 3/15 10mg for 2 days. Stop 08/21 You will also need to complete 3 more days of antibiotics. Take 1 tablet of Levaquin for 3 more days. (Complete on 08/12) You will need to follow up with your primary care physician in 1 week. You will also need to follow up with your Lung doctor in 2 weeks to run more studies for your lung. If you feel short of breath, or develop chest pain, dizziness, lightheadedness, please call your doctor immediately or go to the nearest emergency room. Referrals: Cayetano Vargas MD [Primary Care Provider] - 1 Week Checo Leigh MD [Staff Physician] - 1 Week Ra Rangel MD, MD [Staff Physician] - 1 Week Disposition: HOME - Home Medications Comprehensive Discharge Medication List: Ambulatory Orders Metoprolol Tartrate 12.5 mg PO DAILY 08/08/17 Prednisone See Taper PO DAILY #42 tablet 08/09/17 levoFLOXacin [Levaquin -] 500 mg PO DAILY #3 tablet 08/09/17 This patient is new to me today: Yes Date on this admission: 08/09/17 Emergency Visit: Yes ED Registration Date: 08/08/17 Care time: The patient presented to the Emergency Department on the above date and was hospitalized for further evaluation of their emergent condition. Critical Care patient: No - Discharge Referral Referred to [facility] No
== END 2017-08-09 17:46 | disposition home or self-care (01) ==
LOC: JER 00:39 → JERBED 06:27 → J5S 08:10
PROVIDERS: ADMIT Internal Medicine; ATTEND Hospitalist
PROC: 3E0333Z Introduction of Anti-inflammatory into Peripheral Vein, Percutaneous Approach (ICD-10-PCS; principal; 2017-08-08)
PROC: 3E033GC Introduction of Other Therapeutic Substance into Peripheral Vein, Percutaneous Approach (ICD-10-PCS; 2017-08-08)
PROC: 3E013GC Introduction of Other Therapeutic Substance into Subcutaneous Tissue, Percutaneous Approach (ICD-10-PCS; 2017-08-08)
DX: I50.30 Unspecified diastolic (congestive) heart failure (principal); I48.91 Unspecified atrial fibrillation; J84.9 Interstitial pulmonary disease, unspecified; R05 Cough; J45.909 Unspecified asthma, uncomplicated; I25.10 Atherosclerotic heart disease of native coronary artery without angina pectoris; R06.00 Dyspnea, unspecified; I10 Essential (primary) hypertension; D64.9 Anemia, unspecified; Z88.0 Allergy status to penicillin; R94.31 Abnormal electrocardiogram [ECG] [EKG]
CPT/HCPCS: 36415; 71046-TC-FY; 71250-TC; 80053; 83735; 83880; 84100; 85025; 87070; 87430; 93005; 93010; 93306-TC; 94761; 96372; 96374; 96375; 99283-25; G0378

== ENCOUNTER 2020-08-06 02:47 | Emergency (ER) | payer OTHER ==
[2020-08-06 02:54] VITALS: TEMP 97.6; BMI 23.4
[2020-08-06 03:29] VITALS: BP 136/67; PULSE 88
== END 2020-08-06 03:38 | disposition home or self-care (01) ==
LOC: FER 02:47
DX: I10 Essential (primary) hypertension (principal)
CPT/HCPCS: 99281-25

== ENCOUNTER 2021-03-10 09:06 | Emergency (ER) | payer OTHER ==
[2021-03-10 09:13] VITALS: BMI 23.4
[2021-03-10 10:13] LABS: BASO % 0.8 % (0-2.0); EOS % 0.2 % (0-4.5); HEMATOCRIT 28.8 % (32.4-45.2); HEMOGLOBIN 8.9 GM/dL (10.7-15.3); LYMPH % 7.5 % (8-40); MCH 22.9 pg (25.7-33.7); MCHC 30.9 g/dl (32.0-36.0); MEAN CELL VOLUME 74.2 fl (80-96); NEUT % 84.5 % (42.8-82.8); PLATELET COUNT 172 10^3/uL (134-434); RBC 3.89 M/mm3 (3.60-5.2); RDW 21.6 % (11.6-15.6); WHITE BLOOD COUNT 3.6 K/mm3 (4.0-10.0)
[2021-03-10 10:19] LABS: INR 1.26 (0.83-1.09); PROTHROMBIN TIME (PATIENT) 15.5 SEC (9.7-13.0)
[2021-03-10 10:22] LABS: ACTIVATED PTT 31.4 SECONDS (25.2-36.5)
[2021-03-10 10:34] LABS: CHLORIDE 105 mmol/L (98-107); SODIUM 137 mmol/L (136-145)
[2021-03-10 10:39] LABS: ALBUMIN 3.4 g/dl (3.4-5.0); ANION GAP 6 MMOL/L (8-16); BLOOD UREA NITROGEN 12.6 mg/dL (7-18); CALCIUM 8.7 mg/dL (8.5-10.1); CO2 27 mmol/L (21-32); GLUCOSE,RANDOM 113 mg/dL (74-106)
[2021-03-10 10:42] LABS: CREATININE 0.7 mg/dL (0.55-1.3); SGOT/AST 24 U/L (15-37); SGPT/ALT 20 U/L (13-61); TRIGLYCERIDES 47 mg/dL (0-150)
[2021-03-10 10:43] LABS: CHOLESTEROL 122 mg/dL (50-200); LDL CHOLESTEROL (ONLY SJRH) 58 mg/dL (5-100); TOT PROT 7.1 g/dl (6.4-8.2)
[2021-03-10 10:44] LABS: ALK PHOS 94 U/L (45-117); HDL CHOLESTEROL 59 mg/dL (40-60)
[2021-03-10 11:08] VITALS: BP 109/72; PULSE 101; TEMP 98.1
== END 2021-03-10 11:00 | disposition short-term general hospital (02) ==
LOC: JER 09:06
DX: I63.9 Cerebral infarction, unspecified (principal)
CPT/HCPCS: 36415; 70450-TC; 70496-TC; 70498-TC; 80053; 80061; 82550; 83036; 84484; 85025; 85610; 85730; 86850; 86900; 86901; 93005; 93010; 99285-25; C9803; Q9967; U0003; U0005

== ENCOUNTER 2021-03-31 13:17 | Inpatient (IN) | payer OTHER ==
[2021-03-31 16:04] VITALS: BMI 22.4
[2021-03-31 18:15] LABS: BASO % 2.1 % (0-2.0); EOS % 0.6 % (0-4.5); HEMATOCRIT 33.2 % (32.4-45.2); HEMOGLOBIN 10.3 GM/dL (10.7-15.3); LYMPH % 20.6 % (8-40); MCH 23.9 pg (25.7-33.7); MCHC 31.1 g/dl (32.0-36.0); MEAN CELL VOLUME 76.9 fl (80-96); MEAN PLT VOLUME 7.2 fl (7.5-11.1); MONO % 8.9 % (3.8-10.2); NEUT % 67.8 % (42.8-82.8); PLATELET COUNT 227 10^3/uL (134-434); RBC 4.32 M/mm3 (3.60-5.2); RDW 25.3 % (11.6-15.6); RETICULOCYTES 2.19 % (0.5-1.5); WHITE BLOOD COUNT 3.6 K/mm3 (4.0-10.0)
[2021-03-31 18:27] LABS: INR 1.78 (0.83-1.09)
[2021-03-31 18:30] LABS: ACTIVATED PTT 35.2 SECONDS (25.2-36.5)
[2021-03-31 18:48] LABS: ANISOCYTOSIS 3+; MACROCYTOSIS 0; OVALOCYTE 1+; PLATELET ESTIMATE NORMAL
[2021-03-31 19:02] LABS: ALBUMIN 3.6 g/dl (3.4-5.0); BILIRUBIN,TOTAL 0.8 mg/dL (0.2-1); BLOOD UREA NITROGEN 9.2 mg/dL (7-18); CALCIUM 9.9 mg/dL (8.5-10.1); CREATININE 0.7 mg/dL (0.55-1.3)
[2021-04-01] MEDS: PANTOPRAZOLE SODIUM 40 MG VIAL IVPUSH SCH ×2 (01:25→10:04)
[2021-04-01] MEDS ORDERED: PANTOPRAZOLE SODIUM 40 MG/100 ML BAG IVPB ONE (01:36)
[2021-04-01 04:38] LABS: HEMATOCRIT 30.2 % (32.4-45.2); HEMOGLOBIN 9.6 GM/dL (10.7-15.3); MCH 24.1 pg (25.7-33.7); MCHC 31.7 g/dl (32.0-36.0); MEAN CELL VOLUME 75.9 fl (80-96); MEAN PLT VOLUME 7.2 fl (7.5-11.1); PLATELET COUNT 203 10^3/uL (134-434); RBC 3.98 M/mm3 (3.60-5.2); RDW 25.4 % (11.6-15.6); WHITE BLOOD COUNT 2.9 K/mm3 (4.0-10.0)
[2021-04-01 05:01] LABS: EPI CELLS 6 /uL (0-25.1); HYALINE CASTS 1 /uL (0-3.1); PH,URINE 7.5 (5.0-8.0); URINE APPEARANCE CLEAR; URINE BACTERIA 4 /uL (0-1359); URINE BILIRUBIN NEGATIVE (NEGATIVE); URINE COLOR YELLOW; URINE GLUCOSE (UA) NEGATIVE (NEGATIVE); URINE KETONE NEGATIVE (NEGATIVE); URINE LEUK ESTERASE 1+ (NEGATIVE); URINE NITRITE NEGATIVE (NEGATIVE); URINE PROTEIN NEGATIVE (NEGATIVE); URINE RBC 35 /uL (0-23.9); URINE UROBILINOGEN 0.2 mg/dL (0.2-1.0); URINE WBC 31 /uL (0-25.8)
[2021-04-01 07:22] LABS: INR 1.58 (0.83-1.09); PROTHROMBIN TIME (PATIENT) 17.8 SEC (9.7-13.0)
[2021-04-01 07:33] LABS: HEMATOCRIT 30.3 % (32.4-45.2); HEMOGLOBIN 9.7 GM/dL (10.7-15.3); MCH 24.5 pg (25.7-33.7); MCHC 31.9 g/dl (32.0-36.0); MEAN CELL VOLUME 76.8 fl (80-96); MEAN PLT VOLUME 7.5 fl (7.5-11.1); PLATELET COUNT 211 10^3/uL (134-434); RBC 3.94 M/mm3 (3.60-5.2); RDW 25.2 % (11.6-15.6); WHITE BLOOD COUNT 2.6 K/mm3 (4.0-10.0)
[2021-04-01 07:35] LABS: CHLORIDE 105 mmol/L (98-107); SODIUM 137 mmol/L (136-145)
[2021-04-01 07:38] LABS: CALCIUM 9.2 mg/dL (8.5-10.1)
[2021-04-01 07:39] LABS: ALBUMIN 3.3 g/dl (3.4-5.0); ANION GAP 3 MMOL/L (8-16); BLOOD UREA NITROGEN 9.3 mg/dL (7-18); CO2 29 mmol/L (21-32); GLUCOSE,RANDOM 90 mg/dL (74-106); MAGNESIUM 2.1 mg/dL (1.8-2.4)
[2021-04-01 07:42] LABS: CREATININE 0.6 mg/dL (0.55-1.3); PHOSPHOROUS 4.4 mg/dL (2.5-4.9); SGOT/AST 17 U/L (15-37); SGPT/ALT 16 U/L (13-61)
[2021-04-01 07:43] LABS: BILIRUBIN,TOTAL 0.8 mg/dL (0.2-1); TOT PROT 6.7 g/dl (6.4-8.2)
[2021-04-01 07:45] LABS: ALK PHOS 80 U/L (45-117)
[2021-04-01 08:33] LABS: N-TERMINAL BNP 530.6 pg/ml (5-125)
[2021-04-01] MEDS ORDERED: PANTOPRAZOLE SODIUM 40 MG VIAL ONE (09:46)
[2021-04-01] MEDS ORDERED: metoPROLOL SUCCINATE 25 MG TAB.SR.24H (FP) ONE (09:46)
[2021-04-01] MEDS ORDERED: METOPROLOL TARTRATE 25 MG TABLET (FP) PO SCH (10:00)
[2021-04-01] MEDS: metoPROLOL SUCCINATE 25 MG TAB.SR.24H (FP) PO SCH (10:04)
[2021-04-01 14:55] LABS: EOS % 1.1 % (0-4.5); HEMATOCRIT 32.8 % (32.4-45.2); HEMOGLOBIN 10.2 GM/dL (10.7-15.3); LYMPH % 19.4 % (8-40); MCH 24.2 pg (25.7-33.7); MCHC 31.2 g/dl (32.0-36.0); MEAN CELL VOLUME 77.6 fl (80-96); MEAN PLT VOLUME 7.3 fl (7.5-11.1); MONO % 10.7 % (3.8-10.2); NEUT % 66.8 % (42.8-82.8); PLATELET COUNT 239 10^3/uL (134-434); RBC 4.22 M/mm3 (3.60-5.2); WHITE BLOOD COUNT 2.9 K/mm3 (4.0-10.0)
[2021-04-01] MEDS ORDERED: FERROUS SO4 325 MG TABLET (FP) ONE (18:43)
[2021-04-01] MEDS: FERROUS SO4 325 MG TABLET (FP) PO SCH (18:43)
[2021-04-01 21:42] LABS: HEMOGLOBIN 9.7 GM/dL (10.7-15.3); MCH 24.4 pg (25.7-33.7); MCHC 31.4 g/dl (32.0-36.0); MEAN CELL VOLUME 77.6 fl (80-96); MEAN PLT VOLUME 7.1 fl (7.5-11.1); PLATELET COUNT 210 10^3/uL (134-434); RDW 25.4 % (11.6-15.6); WHITE BLOOD COUNT 2.9 K/mm3 (4.0-10.0)
[2021-04-02 06:44] LABS: BASO % 2.8 % (0-2.0); EOS % 3.2 % (0-4.5); HEMOGLOBIN 9.8 GM/dL (10.7-15.3); LYMPH % 25.2 % (8-40); MCH 24.5 pg (25.7-33.7); MCHC 31.6 g/dl (32.0-36.0); MEAN CELL VOLUME 77.8 fl (80-96); MEAN PLT VOLUME 7.6 fl (7.5-11.1); MONO % 13.2 % (3.8-10.2); NEUT % 55.6 % (42.8-82.8); PLATELET COUNT 203 10^3/uL (134-434); RBC 3.99 M/mm3 (3.60-5.2); RDW 25.9 % (11.6-15.6); WHITE BLOOD COUNT 2.5 K/mm3 (4.0-10.0)
[2021-04-02 07:07] LABS: INR 1.37 (0.83-1.09); PROTHROMBIN TIME (PATIENT) 16.1 SEC (9.7-13.0)
[2021-04-02 07:16] LABS: ALBUMIN 3.1 g/dl (3.4-5.0); BLOOD UREA NITROGEN 8.7 mg/dL (7-18); CALCIUM 9.1 mg/dL (8.5-10.1)
[2021-04-02 07:19] LABS: CREATININE 0.7 mg/dL (0.55-1.3)
[2021-04-02 07:21] LABS: BILIRUBIN,TOTAL 0.8 mg/dL (0.2-1); TOT PROT 6.7 g/dl (6.4-8.2)
[2021-04-02] MEDS ORDERED: PANTOPRAZOLE 40 MG TABLET PO SCH (10:00)
[2021-04-02] MEDS ORDERED: APIXABAN 5 MG TABLET PO SCH ×2 (10:00→10:45)
[2021-04-02] MEDS ORDERED: metoPROLOL SUCCINATE 25 MG TAB.SR.24H (FP) ONE (12:16)
[2021-04-02] MEDS ORDERED: PANTOPRAZOLE 40 MG TABLET ONE (12:16)
[2021-04-02] MEDS ORDERED: APIXABAN 5 MG TABLET ONE (12:16)
[2021-04-02] MEDS ORDERED: FERROUS SO4 325 MG TABLET (FP) ONE (12:17)
[2021-04-02] MEDS: FERROUS SO4 325 MG TABLET (FP) PO SCH (12:28)
[2021-04-02] MEDS: metoPROLOL SUCCINATE 25 MG TAB.SR.24H (FP) PO SCH (12:29)
[2021-04-02 16:17] VITALS: BP 132/72; PULSE 82; TEMP 98.1
== END 2021-04-02 16:00 | disposition home or self-care (01) | DRG 378 ==
LOC: JER 13:17 → JERBED 22:14 → INTOOBSV 22:14 → OBSVTOIN 04-01 01:34
PROVIDERS: ADMIT Internal Medicine; ATTEND Internal Medicine
DX: K92.1 Melena (principal); I50.32 Chronic diastolic (congestive) heart failure; J84.9 Interstitial pulmonary disease, unspecified; K64.4 Residual hemorrhoidal skin tags; I11.0 Hypertensive heart disease with heart failure; Z88.0 Allergy status to penicillin; I48.0 Paroxysmal atrial fibrillation; D50.9 Iron deficiency anemia, unspecified; K64.9 Unspecified hemorrhoids; R82.81 Pyuria; I36.1 Nonrheumatic tricuspid (valve) insufficiency
CPT/HCPCS: 36415; 74177-TC; 80053; 81003; 82272; 82728; 83540; 83550; 83605; 83735; 83880; 84100; 84439; 84443; 84481; 84484; 85025; 85027; 85045; 85610; 85730; 86850; 86900; 86901; 93005; 93010; 99285-25; C9803; G0378; Q9967; U0003; U0005

== ENCOUNTER 2022-11-18 01:02 | Emergency (ER) | payer OTHER ==
[2022-11-18 01:13] VITALS: RESP 28; TEMP 98; BMI 21.5
[2022-11-18] MEDS ORDERED: ALBUTEROL SO4 0.083% IH SOL 2.5 MG/3 ML VIAL.NEB. NEB ONE ×2 (01:25→01:37)
[2022-11-18 02:09] VITALS: BP 155/72; PULSE 88
[2022-11-18 02:39] LABS: BASO % 1.4 % (0-2.0); EOS % 2.3 % (0-4.5); HEMATOCRIT 39.7 % (32.4-45.2); HEMOGLOBIN 13.2 GM/dL (10.7-15.3); LYMPH % 20.5 % (8-40); MCH 30.5 pg (25.7-33.7); MCHC 33.3 g/dl (32.0-36.0); MEAN CELL VOLUME 91.6 fl (80-96); NEUT % 64.8 % (42.8-82.8); PLATELET COUNT 167 10^3/uL (134-434); RBC 4.33 M/mm3 (3.60-5.2); RDW 14.2 % (11.6-15.6); WHITE BLOOD COUNT 3.4 K/mm3 (4.0-10.0)
[2022-11-18 03:02] LABS: CALCIUM 8.9 mg/dL (8.5-10.1)
[2022-11-18 03:03] LABS: ALBUMIN 3.5 g/dl (3.4-5.0); BLOOD UREA NITROGEN 11.9 mg/dL (7-18); POTASSIUM 4.2 mmol/L (3.5-5.1)
[2022-11-18 03:06] LABS: CREATININE 0.6 mg/dL (0.55-1.3)
[2022-11-18 03:08] LABS: TOT PROT 7.2 g/dl (6.4-8.2)
== END 2022-11-18 03:59 | disposition home or self-care (01) ==
LOC: FER 01:02
PROC: 3E0F7GC Introduction of Other Therapeutic Substance into Respiratory Tract, Via Natural or Artificial Opening (ICD-10-PCS; principal; 2022-11-18)
DX: R06.02 Shortness of breath (principal); I10 Essential (primary) hypertension; R68.83 Chills (without fever); R22.42 Localized swelling, mass and lump, left lower limb; R06.82 Tachypnea, not elsewhere classified; Z20.822 Contact with and (suspected) exposure to COVID-19
CPT/HCPCS: 0241U-QW; 36415; 71045-TC-FY; 80053; 83880; 84484; 85025; 93005; 99285-25

== ENCOUNTER 2023-04-09 09:33 | Inpatient (IN) | payer OTHER ==
[2023-04-09 10:35] LABS: HEMATOCRIT 36.3 % (32.4-45.2); HEMOGLOBIN 11.9 G/dL (10.7-15.3); MCHC 32.7 g/dl (32.0-36.0); MEAN CELL VOLUME 85.6 fl (80-96); MEAN PLT VOLUME 7.8 fl (7.5-11.1); PLATELET COUNT 184.6 10^3/uL (134-434); RBC 4.24 10^6/uL (3.60-5.2); RDW 17.6 % (11.6-15.6); WHITE BLOOD COUNT 4.6 10^3/uL (4.0-10.8)
[2023-04-09 10:43] LABS: PLATELET ESTIMATE ADEQUATE
[2023-04-09 10:46] LABS: ALBUMIN 3.7 g/dl (3.4-5.0); BILIRUBIN,TOTAL 1.6 mg/dl (0.2-1); CREATININE 0.5 mg/dl (0.6-1.3); POTASSIUM 4.5 mmol/L (3.5-5.1); TOT PROT 6.8 g/dl (6.4-8.2)
[2023-04-09 11:38] LABS: VENOUS BASE EXCESS -0.3 mmol/L (-2-2); VENOUS O2 SATURATION 86.4 % (70-80); VENOUS PCO2 40.9 mmHg (38-52); VENOUS PH 7.396 (7.310-7.410)
[2023-04-09] MEDS ORDERED: SODIUM CHLORIDE 1,000 ML IV SCH (14:15)
[2023-04-09] MEDS ORDERED: predniSONE 20 MG TABLET (UD) PO ONE (15:08)
[2023-04-09] MEDS ORDERED: FUROSEMIDE 40 MG/4 ML INJECTABLE VIAL IVPUSH ONE (15:50)
[2023-04-09 17:24] LABS: CREATININE 0.5 mg/dl (0.6-1.3); POTASSIUM 4.2 mmol/L (3.5-5.1)
[2023-04-09] MEDS: AZITHROMYCIN IVPB 500 MG/250 ML BAG IVPB SCH (17:29)
[2023-04-09] MEDS: ALBUTEROL SO4 2.5/IPRATROPIUM 0.5 INH SOL 3 ML VIAL.NEB. NEB SCH ×2 (17:30→22:23)
[2023-04-09] MEDS: METOPROLOL TARTRATE 25 MG TABLET (FP) PO SCH (22:23)
[2023-04-10] MEDS: predniSONE 20 MG TABLET (UD) PO SCH (09:32)
[2023-04-10] MEDS: METOPROLOL TARTRATE 25 MG TABLET (FP) PO SCH ×2 (09:32→21:40)
[2023-04-10] MEDS: AZITHROMYCIN IVPB 500 MG/250 ML BAG IVPB SCH (09:33)
[2023-04-10] MEDS: ALBUTEROL SO4 2.5/IPRATROPIUM 0.5 INH SOL 3 ML VIAL.NEB. NEB SCH ×4 (09:33→21:39)
[2023-04-10 09:49] LABS: HEMATOCRIT 36.3 % (32.4-45.2); HEMOGLOBIN 11.8 G/dL (10.7-15.3); MCH 27.8 pg (25.7-33.7); MCHC 32.4 g/dl (32.0-36.0); MEAN CELL VOLUME 85.9 fl (80-96); MEAN PLT VOLUME 8.1 fl (7.5-11.1); PLATELET COUNT 195.4 10^3/uL (134-434); RBC 4.23 10^6/uL (3.60-5.2); RDW 17.5 % (11.6-15.6); WHITE BLOOD COUNT 2.7 10^3/uL (4.0-10.8)
[2023-04-10] MEDS: ENOXAPARIN NA (PORCINE) 40 MG/0.4 ML DISP.SYRIN SQ SCH (09:54)
[2023-04-10 10:00] LABS: ALBUMIN 3.3 g/dl (3.4-5.0); CALCIUM 8.9 mg/dl (8.5-10.1); CREATININE 0.5 mg/dl (0.6-1.3); MAGNESIUM 1.7 mg/dL (1.8-2.4); POTASSIUM 4.2 mmol/L (3.5-5.1); TOT PROT 6.2 g/dl (6.4-8.2)
[2023-04-10] MEDS ORDERED: FUROSEMIDE 40 MG/4 ML INJECTABLE VIAL IVPUSH SCH ×3 (10:00→11:20)
[2023-04-10] MEDS ORDERED: MAGNESIUM SULF 50% (8.12 MEQ/2 ML-1 GM VIAL) IVPB ONE (10:05)
[2023-04-10] MEDS ORDERED: DESMOPRESSIN ACETATE 4 MCG/ML AMP IVPB ONE (10:27)
[2023-04-10] MEDS ORDERED: DEXTROSE 5%-WATER - 1,000 ML IV SCH (10:30)
[2023-04-10 12:04] LABS: EPITHELIAL CELLS 0-5 /hpf
[2023-04-10 16:20] VITALS: BMI 23.2
[2023-04-10 20:24] LABS: CALCIUM 9.2 mg/dl (8.5-10.1); CREATININE 0.6 mg/dl (0.6-1.3); POTASSIUM 3.6 mmol/L (3.5-5.1)
[2023-04-11 08:41] LABS: HEMATOCRIT 35.1 % (32.4-45.2); HEMOGLOBIN 11.1 G/dL (10.7-15.3); MCH 27.6 pg (25.7-33.7); MCHC 31.7 g/dl (32.0-36.0); MEAN CELL VOLUME 87.1 fl (80-96); MEAN PLT VOLUME 8.1 fl (7.5-11.1); PLATELET COUNT 182.8 10^3/uL (134-434); RBC 4.03 10^6/uL (3.60-5.2); RDW 17.9 % (11.6-15.6)
[2023-04-11 08:52] LABS: ALBUMIN 3.5 g/dl (3.4-5.0); BILIRUBIN,TOTAL 0.8 mg/dl (0.2-1); CALCIUM 9.2 mg/dl (8.5-10.1); CREATININE 0.5 mg/dl (0.6-1.3); POTASSIUM 3.8 mmol/L (3.5-5.1); TOT PROT 6.4 g/dl (6.4-8.2)
[2023-04-11] MEDS: METOPROLOL TARTRATE 25 MG TABLET (FP) PO SCH ×2 (09:34→21:13)
[2023-04-11] MEDS: ENOXAPARIN NA (PORCINE) 40 MG/0.4 ML DISP.SYRIN SQ SCH (09:35)
[2023-04-11] MEDS: predniSONE 20 MG TABLET (UD) PO SCH (09:35)
[2023-04-11] MEDS: AZITHROMYCIN IVPB 500 MG/250 ML BAG IVPB SCH (09:35)
[2023-04-11] MEDS: ALBUTEROL SO4 2.5/IPRATROPIUM 0.5 INH SOL 3 ML VIAL.NEB. NEB SCH ×4 (09:36→20:07)
[2023-04-11 09:48] LABS: MAGNESIUM 1.9 mg/dL (1.8-2.4)
[2023-04-11] MEDS ORDERED: FUROSEMIDE 40 MG/4 ML INJECTABLE VIAL IVPUSH SCH (11:16)
[2023-04-11] MEDS: MELATONIN 5 MG TABLETS PO PRN (21:36)
[2023-04-12 08:11] LABS: HEMATOCRIT 34.7 % (32.4-45.2); HEMOGLOBIN 10.9 G/dL (10.7-15.3); MCH 27.4 pg (25.7-33.7); MCHC 31.4 g/dl (32.0-36.0); MEAN CELL VOLUME 87.1 fl (80-96); MEAN PLT VOLUME 7.7 fl (7.5-11.1); PLATELET COUNT 188.2 10^3/uL (134-434); RBC 3.98 10^6/uL (3.60-5.2); RDW 17.8 % (11.6-15.6); WHITE BLOOD COUNT 4.2 10^3/uL (4.0-10.8)
[2023-04-12] MEDS: ALBUTEROL SO4 2.5/IPRATROPIUM 0.5 INH SOL 3 ML VIAL.NEB. NEB SCH ×4 (08:15→21:34)
[2023-04-12 08:31] LABS: INR 1.23 (0.83-1.09); PROTHROMBIN TIME (PATIENT) 14.2 SEC (9.7-13.0)
[2023-04-12 08:45] LABS: ALBUMIN 3.4 g/dl (3.4-5.0); BILIRUBIN,TOTAL 0.8 mg/dl (0.2-1); CALCIUM 8.9 mg/dl (8.5-10.1); CREATININE 0.6 mg/dl (0.6-1.3); MAGNESIUM 1.9 mg/dL (1.8-2.4); PHOSPHOROUS 3.4 (2.5-4.9); POTASSIUM 4.5 mmol/L (3.5-5.1); TOT PROT 6.1 g/dl (6.4-8.2)
[2023-04-12] MEDS: ENOXAPARIN NA (PORCINE) 40 MG/0.4 ML DISP.SYRIN SQ SCH (10:15)
[2023-04-12] MEDS: predniSONE 20 MG TABLET (UD) PO SCH (10:16)
[2023-04-12] MEDS: METOPROLOL TARTRATE 25 MG TABLET (FP) PO SCH ×2 (10:16→21:34)
[2023-04-12] MEDS: AZITHROMYCIN IVPB 500 MG/250 ML BAG IVPB SCH (10:17)
[2023-04-12] MEDS: LIDOCAINE 5% TOPICAL PATCH TP SCH (14:45)
[2023-04-12] MEDS: LIDOCAINE PATCH REMOVAL MC SCH (21:39)
[2023-04-12] MEDS: MELATONIN 5 MG TABLETS PO PRN (21:45)
[2023-04-13 08:01] LABS: HEMATOCRIT 34.9 % (32.4-45.2); MCH 27.8 pg (25.7-33.7); MCHC 31.6 g/dl (32.0-36.0); MEAN CELL VOLUME 88.2 fl (80-96); MEAN PLT VOLUME 7.6 fl (7.5-11.1); PLATELET COUNT 168.9 10^3/uL (134-434); RBC 3.96 10^6/uL (3.60-5.2); RDW 17.4 % (11.6-15.6); WHITE BLOOD COUNT 3.4 10^3/uL (4.0-10.8)
[2023-04-13] MEDS: ALBUTEROL SO4 2.5/IPRATROPIUM 0.5 INH SOL 3 ML VIAL.NEB. NEB SCH ×4 (08:39→21:16)
[2023-04-13 08:42] LABS: ALBUMIN 3.4 g/dl (3.4-5.0); BILIRUBIN,TOTAL 0.7 mg/dl (0.2-1); CREATININE 0.5 mg/dl (0.6-1.3); MAGNESIUM 1.9 mg/dL (1.8-2.4); PHOSPHOROUS 3.7 (2.5-4.9); POTASSIUM 4.6 mmol/L (3.5-5.1); TOT PROT 6.3 g/dl (6.4-8.2)
[2023-04-13] MEDS: ENOXAPARIN NA (PORCINE) 40 MG/0.4 ML DISP.SYRIN SQ SCH (10:37)
[2023-04-13] MEDS: AZITHROMYCIN IVPB 500 MG/250 ML BAG IVPB SCH (10:37)
[2023-04-13] MEDS: FAMOTIDINE 20 MG TABLET PO SCH (10:37)
[2023-04-13] MEDS: predniSONE 20 MG TABLET (UD) PO SCH (10:38)
[2023-04-13] MEDS: METOPROLOL TARTRATE 25 MG TABLET (FP) PO SCH ×2 (10:38→21:16)
[2023-04-13] MEDS: LIDOCAINE 5% TOPICAL PATCH TP SCH (10:38)
[2023-04-13] MEDS: LIDOCAINE PATCH REMOVAL MC SCH (21:23)
[2023-04-13] MEDS: MELATONIN 5 MG TABLETS PO PRN (22:10)
[2023-04-14] MEDS: ALBUTEROL SO4 2.5/IPRATROPIUM 0.5 INH SOL 3 ML VIAL.NEB. NEB SCH ×2 (07:49→12:37)
[2023-04-14 08:40] LABS: ALBUMIN 3.5 g/dl (3.4-5.0); BILIRUBIN,TOTAL 0.6 mg/dl (0.2-1); CALCIUM 9.2 mg/dl (8.5-10.1); CREATININE 0.6 mg/dl (0.6-1.3); POTASSIUM 4.1 mmol/L (3.5-5.1); TOT PROT 6.4 g/dl (6.4-8.2)
[2023-04-14] MEDS: ENOXAPARIN NA (PORCINE) 40 MG/0.4 ML DISP.SYRIN SQ SCH (10:04)
[2023-04-14 10:05] VITALS: BP 146/75; RESP 18; TEMP 97.3
[2023-04-14] MEDS: METOPROLOL TARTRATE 25 MG TABLET (FP) PO SCH (10:05)
[2023-04-14] MEDS: AZITHROMYCIN IVPB 500 MG/250 ML BAG IVPB SCH (10:05)
[2023-04-14] MEDS: FAMOTIDINE 20 MG TABLET PO SCH (10:05)
[2023-04-14 10:06] VITALS: PULSE 86
[2023-04-14] MEDS: predniSONE 20 MG TABLET (UD) PO SCH (10:06)
[2023-04-14] MEDS: LIDOCAINE 5% TOPICAL PATCH TP SCH (10:07)
[2023-04-14 11:31] LABS: BASO % 0.2 % (0-2.0); EOS % 0.2 % (0-4.5); HEMATOCRIT 35.5 % (32.4-45.2); HEMOGLOBIN 11.4 GM/dL (10.7-15.3); LYMPH % 12.8 % (8-40); MCH 27.2 pg (25.7-33.7); MONO % 11.9 % (3.8-10.2); NEUT % 74.9 % (42.8-82.8); PLATELET COUNT 192 10^3/uL (134-434); RBC 4.18 M/mm3 (3.60-5.2); RDW 17.7 % (11.6-15.6); WHITE BLOOD COUNT 4.2 K/mm3 (4.0-10.0)
== END 2023-04-14 14:09 | disposition home or self-care (01) | DRG 291 ==
LOC: FER 09:33 → FM/S 12:11
PROVIDERS: ADMIT Internal Medicine; ATTEND Internal Medicine
DX: I11.0 Hypertensive heart disease with heart failure (principal); I50.33 Acute on chronic diastolic (congestive) heart failure; E87.1 Hypo-osmolality and hyponatremia; I24.89 Other forms of acute ischemic heart disease; J84.9 Interstitial pulmonary disease, unspecified; I25.10 Atherosclerotic heart disease of native coronary artery without angina pectoris; I48.91 Unspecified atrial fibrillation; K74.60 Unspecified cirrhosis of liver; D51.9 Vitamin B12 deficiency anemia, unspecified; D53.9 Nutritional anemia, unspecified
CPT/HCPCS: 0241U-QW; 36415; 71045-TC-FY; 71250-TC; 74177-TC; 80048; 80053; 80061; 81003; 81015; 82103; 82105; 82306; 82570; 82607; 82728; 82746; 82803; 83036; 83540; 83550; 83735; 83880; 83935; 84100; 84300; 84439; 84443; 84484; 85025; 85027; 85610; 86704; 86705; 86709; 86803; 87040; 87340; 87517; 93005; 93306-TC; 94640; 94761; 97116-GP; 97161-GP; 99285-25; J2597; Q9967

== ENCOUNTER 2023-04-15 20:42 | Inpatient (IN) | payer OTHER ==
[2023-04-15 20:54] VITALS: BMI 22.4
[2023-04-15 22:02] LABS: HEMATOCRIT 39.3 % (32.4-45.2); HEMOGLOBIN 12.3 G/dL (10.7-15.3); MCH 27.4 pg (25.7-33.7); MCHC 31.3 g/dl (32.0-36.0); MEAN CELL VOLUME 87.6 fl (80-96); MEAN PLT VOLUME 6.8 fl (7.5-11.1); RBC 4.49 10^6/uL (3.60-5.2); RDW 17.7 % (11.6-15.6); WHITE BLOOD COUNT 5.9 10^3/uL (4.0-10.8)
[2023-04-15 22:16] LABS: PLATELET ESTIMATE ADEQUATE
[2023-04-15 22:26] LABS: ALBUMIN 3.7 g/dl (3.4-5.0); BILIRUBIN,TOTAL 0.7 mg/dl (0.2-1); CALCIUM 9.5 mg/dl (8.5-10.1); CREATININE 0.6 mg/dl (0.6-1.3); POTASSIUM 4.6 mmol/L (3.5-5.1); TOT PROT 6.8 g/dl (6.4-8.2)
[2023-04-15 23:35] LABS: N-TERMINAL BNP 1333.9 pg/ml (5-125)
[2023-04-16] MEDS ORDERED: ASPIRIN 81 MG CHEWABLE TABLETS PO ONE (00:08)
[2023-04-16] MEDS ORDERED: FUROSEMIDE 20 MG TABLET (FP) PO ONE (00:09)
[2023-04-16] MEDS ORDERED: FUROSEMIDE 40 MG TABLET (FP) ONE (00:31)
[2023-04-16] MEDS ORDERED: ASPIRIN 81 MG CHEWABLE TABLETS ONE (00:31)
[2023-04-16] MEDS ORDERED: ALBUTEROL SO4 HFA INHALER IH PRN (00:55)
[2023-04-16] MEDS ORDERED: FUROSEMIDE 40 MG/4 ML INJECTABLE VIAL ONE (00:57)
[2023-04-16] MEDS ORDERED: ALBUTEROL SO4 HFA INHALER IH SCH (01:00)
[2023-04-16] MEDS: FUROSEMIDE 40 MG/4 ML INJECTABLE VIAL IVPUSH SCH ×2 (01:00→13:40)
[2023-04-16] MEDS: MELATONIN 5 MG TABLETS PO SCH ×3 (02:26→23:00)
[2023-04-16] MEDS: METOPROLOL TARTRATE 25 MG TABLET (FP) PO SCH ×3 (06:39→22:07)
[2023-04-16 08:41] LABS: ALBUMIN 3.7 g/dl (3.4-5.0); BILIRUBIN,DIRECT 0.3 mg/dL (0.0-0.2); BILIRUBIN,TOTAL 0.9 mg/dl (0.2-1); CALCIUM 9.6 mg/dl (8.5-10.1); CREATININE 0.6 mg/dl (0.6-1.3); POTASSIUM 3.7 mmol/L (3.5-5.1); TOT PROT 6.8 g/dl (6.4-8.2)
[2023-04-16 08:46] LABS: BASO % 0.7 % (0-2.0); EOS % 1.1 % (0-4.5); HEMATOCRIT 38.8 % (32.4-45.2); HEMOGLOBIN 12.4 GM/dL (10.7-15.3); LYMPH % 16.4 % (8-40); MCH 26.8 pg (25.7-33.7); MEAN CELL VOLUME 83.6 fl (80-96); MEAN PLT VOLUME 6.7 fl (7.5-11.1); MONO % 14.5 % (3.8-10.2); NEUT % 67.3 % (42.8-82.8); PLATELET COUNT 250 10^3/uL (134-434); RBC 4.64 M/mm3 (3.60-5.2); RDW 17.6 % (11.6-15.6); WHITE BLOOD COUNT 4.7 K/mm3 (4.0-10.0)
[2023-04-16] MEDS: ENOXAPARIN NA (PORCINE) 40 MG/0.4 ML DISP.SYRIN SQ SCH (09:29)
[2023-04-16] MEDS: LISINOPRIL 5 MG TABLET PO SCH (09:29)
[2023-04-16] MEDS ORDERED: predniSONE 20 MG TABLET (UD) PO ONE (09:30)
[2023-04-16] MEDS ORDERED: ASPIRIN 81 MG CHEWABLE TABLETS PO SCH (10:00)
[2023-04-17] MEDS: METOPROLOL TARTRATE 25 MG TABLET (FP) PO SCH (06:25)
[2023-04-17] MEDS: ENOXAPARIN NA (PORCINE) 40 MG/0.4 ML DISP.SYRIN SQ SCH (09:55)
[2023-04-17] MEDS: FUROSEMIDE 40 MG/4 ML INJECTABLE VIAL IVPUSH SCH (09:55)
[2023-04-17] MEDS: predniSONE 10 MG TABLET (UD) PO SCH (09:56)
[2023-04-17 11:01] LABS: BASO % 0.3 % (0-2.0); EOS % 0.4 % (0-4.5); HEMATOCRIT 38.5 % (32.4-45.2); HEMOGLOBIN 12.4 GM/dL (10.7-15.3); LYMPH % 15.5 % (8-40); MCHC 32.3 g/dl (32.0-36.0); MEAN CELL VOLUME 83.6 fl (80-96); MEAN PLT VOLUME 6.8 fl (7.5-11.1); MONO % 12.9 % (3.8-10.2); NEUT % 70.9 % (42.8-82.8); PLATELET COUNT 260 10^3/uL (134-434); RDW 17.5 % (11.6-15.6); WHITE BLOOD COUNT 5.5 K/mm3 (4.0-10.0)
[2023-04-17 11:03] LABS: POTASSIUM 3.9 mmol/L (3.5-5.1)
[2023-04-17 11:06] LABS: CALCIUM 9.2 mg/dL (8.5-10.1)
[2023-04-17 11:07] LABS: ALBUMIN 3.3 g/dl (3.4-5.0); MAGNESIUM 2.2 mg/dL (1.8-2.4)
[2023-04-17 11:10] LABS: CREATININE 0.7 mg/dL (0.55-1.3); PHOSPHOROUS 4.6 mg/dL (2.5-4.9)
[2023-04-17 11:11] LABS: BILIRUBIN,TOTAL 0.9 mg/dL (0.2-1); TOT PROT 6.9 g/dl (6.4-8.2)
[2023-04-17] MEDS: LISINOPRIL 5 MG TABLET PO SCH (13:40)
[2023-04-17] MEDS ORDERED: METOPROLOL TARTRATE 25 MG TABLET (FP) PO SCH (22:00)
[2023-04-17] MEDS: MELATONIN 5 MG TABLETS PO SCH (22:58)
[2023-04-18] MEDS ORDERED: METOPROLOL TARTRATE 25 MG TABLET (FP) PO SCH (10:00)
[2023-04-18] MEDS: ENOXAPARIN NA (PORCINE) 40 MG/0.4 ML DISP.SYRIN SQ SCH (10:02)
[2023-04-18] MEDS: predniSONE 10 MG TABLET (UD) PO SCH (10:02)
[2023-04-18] MEDS: FUROSEMIDE 40 MG/4 ML INJECTABLE VIAL IVPUSH SCH (10:03)
[2023-04-18] MEDS: METOPROLOL TARTRATE 25 MG TABLET (FP) PO SCH ×2 (10:03→20:59)
[2023-04-18] MEDS: LISINOPRIL 5 MG TABLET PO SCH (10:04)
[2023-04-18 10:27] LABS: POTASSIUM 4.2 mmol/L (3.5-5.1)
[2023-04-18 10:29] LABS: BASO % 0.4 % (0-2.0); HEMATOCRIT 37.6 % (32.4-45.2); HEMOGLOBIN 12.1 GM/dL (10.7-15.3); LYMPH % 19.4 % (8-40); MEAN CELL VOLUME 84.1 fl (80-96); MEAN PLT VOLUME 6.9 fl (7.5-11.1); MONO % 12.4 % (3.8-10.2); NEUT % 66.8 % (42.8-82.8); PLATELET COUNT 264 10^3/uL (134-434); RBC 4.47 M/mm3 (3.60-5.2); RDW 17.4 % (11.6-15.6)
[2023-04-18 10:32] LABS: BLOOD UREA NITROGEN 18.8 mg/dL (7-18)
[2023-04-18 10:35] LABS: CREATININE 0.6 mg/dL (0.55-1.3)
[2023-04-18] MEDS: MELATONIN 5 MG TABLETS PO SCH (23:41)
[2023-04-19] MEDS: METOPROLOL TARTRATE 25 MG TABLET (FP) PO SCH ×2 (09:13→22:06)
[2023-04-19] MEDS: LISINOPRIL 5 MG TABLET PO SCH (09:14)
[2023-04-19] MEDS: ENOXAPARIN NA (PORCINE) 40 MG/0.4 ML DISP.SYRIN SQ SCH (09:16)
[2023-04-19] MEDS: FUROSEMIDE 40 MG TABLET (FP) PO SCH (09:16)
[2023-04-19 10:36] LABS: EOS % 1.4 % (0-4.5); HEMATOCRIT 37.3 % (32.4-45.2); HEMOGLOBIN 11.7 GM/dL (10.7-15.3); MCH 26.5 pg (25.7-33.7); MCHC 31.3 g/dl (32.0-36.0); MEAN CELL VOLUME 84.5 fl (80-96); MEAN PLT VOLUME 6.8 fl (7.5-11.1); NEUT % 66.6 % (42.8-82.8); PLATELET COUNT 272 10^3/uL (134-434); RBC 4.41 M/mm3 (3.60-5.2); WHITE BLOOD COUNT 4.5 K/mm3 (4.0-10.0)
[2023-04-19 10:37] LABS: BLOOD UREA NITROGEN 17.5 mg/dL (7-18); CALCIUM 8.7 mg/dL (8.5-10.1)
[2023-04-19 10:40] LABS: CREATININE 0.6 mg/dL (0.55-1.3)
[2023-04-19] MEDS: MELATONIN 5 MG TABLETS PO SCH (23:32)
[2023-04-20 06:17] VITALS: RESP 18
[2023-04-20] MEDS: FUROSEMIDE 40 MG TABLET (FP) PO SCH (09:16)
[2023-04-20] MEDS: LISINOPRIL 5 MG TABLET PO SCH (09:16)
[2023-04-20] MEDS: METOPROLOL TARTRATE 25 MG TABLET (FP) PO SCH (09:16)
[2023-04-20] MEDS: ENOXAPARIN NA (PORCINE) 40 MG/0.4 ML DISP.SYRIN SQ SCH (09:19)
[2023-04-20 15:04] VITALS: BP 117/55; PULSE 80; TEMP 98.1
== END 2023-04-20 16:06 | disposition home or self-care (01) | DRG 291 ==
LOC: FER 20:42 → FM/S 04-16 01:46 → OBSVTOIN 04-16 01:46
PROVIDERS: ADMIT Student in an Organized Health Care Education/Training Program; ATTEND Internal Medicine
DX: I11.0 Hypertensive heart disease with heart failure (principal); I50.23 Acute on chronic systolic (congestive) heart failure; J84.9 Interstitial pulmonary disease, unspecified; I48.91 Unspecified atrial fibrillation; I08.3 Combined rheumatic disorders of mitral, aortic and tricuspid valves; D64.9 Anemia, unspecified; M54.2 Cervicalgia; I45.10 Unspecified right bundle-branch block; G47.00 Insomnia, unspecified; R62.7 Adult failure to thrive; Z68.23 Body mass index [BMI] 23.0-23.9, adult
CPT/HCPCS: 0241U-QW; 36415; 71046-TC-FY; 80048; 80053; 80076; 81003; 81015; 83735; 83880; 84100; 84484; 85025; 85027; 85651; 86140; 93005; 94761; 97116-GP; 97161-GP; 99285-25

== ENCOUNTER 2023-08-12 02:43 | Observation (INO) | payer OTHER ==
[2023-08-12 04:19] LABS: EPI CELLS 4 /uL (0-25.1); HYALINE CASTS 0 /uL (0-3.1); URINE APPEARANCE CLEAR; URINE BACTERIA 27 /uL (0-1359); URINE BILIRUBIN NEGATIVE (NEGATIVE); URINE COLOR YELLOW; URINE GLUCOSE (UA) NEGATIVE (NEGATIVE); URINE KETONE NEGATIVE (NEGATIVE); URINE LEUK ESTERASE NEGATIVE (NEGATIVE); URINE NITRITE NEGATIVE (NEGATIVE); URINE PROTEIN NEGATIVE (NEGATIVE); URINE RBC 66 /uL (0-23.9); URINE UROBILINOGEN 0.2 mg/dL (0.2-1.0); URINE WBC 8 /uL (0-25.8)
[2023-08-12 04:26] LABS: VENOUS O2 SATURATION 78.6 % (70-80); VENOUS PCO2 51.6 mmHg (38-52); VENOUS PH 7.344 (7.310-7.410)
[2023-08-12 04:27] LABS: INR 1.31 (0.83-1.09); PROTHROMBIN TIME (PATIENT) 15.1 SEC (9.7-13.0)
[2023-08-12 04:29] LABS: ACTIVATED PTT 34.1 SECONDS (25.2-36.5)
[2023-08-12 04:37] LABS: POTASSIUM 4.3 mmol/L (3.5-5.1)
[2023-08-12 04:39] LABS: BLOOD UREA NITROGEN 9.2 mg/dL (7-18); CALCIUM 8.9 mg/dL (8.5-10.1)
[2023-08-12 04:40] LABS: ALBUMIN 3.5 g/dl (3.4-5.0); MAGNESIUM 1.8 mg/dL (1.8-2.4)
[2023-08-12 04:42] LABS: CREATININE 0.5 mg/dL (0.55-1.3)
[2023-08-12 04:44] LABS: TOT PROT 7.1 g/dl (6.4-8.2)
[2023-08-12] MEDS ORDERED: FUROSEMIDE 40 MG/4 ML INJECTABLE VIAL ONE (04:44)
[2023-08-12] MEDS: FUROSEMIDE 100 MG/10 ML INJECTABLE VIAL IVPB ONE (04:50)
[2023-08-12 04:56] LABS: BASO % 1.4 % (0-2.0); EOS % 2.6 % (0-4.5); HEMATOCRIT 29.3 % (32.4-45.2); HEMOGLOBIN 9.7 GM/dL (10.7-15.3); LYMPH % 14.9 % (8-40); MCH 24.9 pg (25.7-33.7); MEAN CELL VOLUME 75.5 fl (80-96); MEAN PLT VOLUME 7.5 fl (7.5-11.1); MONO % 12.6 % (3.8-10.2); NEUT % 68.5 % (42.8-82.8); PLATELET COUNT 154 10^3/uL (134-434); RBC 3.88 M/mm3 (3.60-5.2); RDW 18.9 % (11.6-15.6); WHITE BLOOD COUNT 2.7 K/mm3 (4.0-10.0)
[2023-08-12] MEDS: ALBUTEROL SO4 2.5/IPRATROPIUM 0.5 INH SOL 3 ML VIAL.NEB. NEB SCH (09:34)
[2023-08-12] MEDS: LEVOTHYROXINE NA 25 MCG TABLET (FP) PO SCH (09:34)
[2023-08-12] MEDS: metoPROLOL SUCCINATE 25 MG TAB.SR.24H (FP) PO SCH (09:34)
[2023-08-12 10:40] VITALS: BMI 22.0
[2023-08-12] MEDS: MAGNESIUM OXIDE 400 MG TABLET (FP) PO ONE (11:16)
[2023-08-12] MEDS: MELATONIN 5 MG TABLETS PO SCH (22:00)
[2023-08-12 22:14] VITALS: RESP 18
[2023-08-13 06:44] VITALS: TEMP 98.1
[2023-08-13 08:45] LABS: CALCIUM 9.1 mg/dl (8.5-10.1); CREATININE 0.6 mg/dl (0.6-1.3); MAGNESIUM 1.8 mg/dL (1.8-2.4); PHOSPHOROUS 4.4 (2.5-4.9); POTASSIUM 4.3 mmol/L (3.5-5.1)
[2023-08-13 09:18] LABS: BASO % 1.7 % (0-2.0); EOS % 2.4 % (0-4.5); HEMOGLOBIN 9.6 GM/dL (10.7-15.3); LYMPH % 17.4 % (8-40); MCH 24.3 pg (25.7-33.7); MCHC 31.9 g/dl (32.0-36.0); MEAN CELL VOLUME 76.3 fl (80-96); MEAN PLT VOLUME 7.4 fl (7.5-11.1); MONO % 12.4 % (3.8-10.2); NEUT % 66.1 % (42.8-82.8); PLATELET COUNT 158 10^3/uL (134-434); RBC 3.93 M/mm3 (3.60-5.2); RDW 18.8 % (11.6-15.6); WHITE BLOOD COUNT 2.8 K/mm3 (4.0-10.0)
[2023-08-13] MEDS: FUROSEMIDE 40 MG/4 ML INJECTABLE VIAL IVPUSH SCH (10:52)
[2023-08-13 11:19] VITALS: BP 108/54; PULSE 65
== END 2023-08-13 11:35 | disposition home or self-care (01) ==
LOC: FER 02:43 → FM/S 07:00
PROVIDERS: ADMIT Internal Medicine; ATTEND Internal Medicine
PROC: 3E033GC Introduction of Other Therapeutic Substance into Peripheral Vein, Percutaneous Approach (ICD-10-PCS; principal; 2023-08-12)
DX: J96.01 Acute respiratory failure with hypoxia (principal); I48.91 Unspecified atrial fibrillation; I11.0 Hypertensive heart disease with heart failure; I50.30 Unspecified diastolic (congestive) heart failure; J84.9 Interstitial pulmonary disease, unspecified; G47.00 Insomnia, unspecified; D61.818 Other pancytopenia; Z88.0 Allergy status to penicillin
CPT/HCPCS: 0241U-QW; 36415; 71045-TC-FY; 80048; 80053; 81003; 82728; 82803; 83540; 83550; 83735; 83880; 84100; 84439; 84443; 84484; 85025; 85610; 85730; 87086; 93005; 93306-TC; 94640; 96374; 96376; 97116-GP; 97162-GP; 99285-25; G0378

== ENCOUNTER 2023-10-22 12:16 | Inpatient (IN) | payer OTHER ==
[2023-10-22 13:30] LABS: EOS % 0.6 % (0-4.5); HEMATOCRIT 32.5 % (32.4-45.2); HEMOGLOBIN 10.2 GM/dL (10.7-15.3); MCH 24.3 pg (25.7-33.7); MCHC 31.5 g/dl (32.0-36.0); MEAN CELL VOLUME 77.4 fl (80-96); MEAN PLT VOLUME 7.2 fl (7.5-11.1); NEUT % 73.4 % (42.8-82.8); PLATELET COUNT 164 10^3/uL (134-434); RBC 4.19 M/mm3 (3.60-5.2); RDW 20.9 % (11.6-15.6); WHITE BLOOD COUNT 3.1 K/mm3 (4.0-10.0)
[2023-10-22 13:42] LABS: INR 1.28 (0.83-1.09); PROTHROMBIN TIME (PATIENT) 14.4 SEC (9.7-13.0)
[2023-10-22 13:45] LABS: ACTIVATED PTT 34.3 SECONDS (25.2-36.5)
[2023-10-22 13:56] LABS: POTASSIUM 4.3 mmol/L (3.5-5.1)
[2023-10-22 13:58] LABS: ALBUMIN 3.6 g/dl (3.4-5.0)
[2023-10-22 14:01] LABS: CREATININE 0.6 mg/dL (0.55-1.3)
[2023-10-22 14:03] LABS: BILIRUBIN,TOTAL 1.4 mg/dL (0.2-1); TOT PROT 7.1 g/dl (6.4-8.2)
[2023-10-22 14:06] LABS: N-TERMINAL BNP 717.6 pg/ml (5-450)
[2023-10-22] MEDS ORDERED: FUROSEMIDE 40 MG/4 ML INJECTABLE VIAL ONE (15:23)
[2023-10-22] MEDS: FUROSEMIDE 40 MG/4 ML INJECTABLE VIAL IVPUSH ONE (15:32)
[2023-10-22] MEDS: HEPARIN NA (PORCINE) 5,000 UNITS/ML 1ML VIAL SQ SCH (21:39)
[2023-10-22] MEDS: ALBUTEROL SO4 2.5/IPRATROPIUM 0.5 INH SOL 3 ML VIAL.NEB. NEB SCH (22:15)
[2023-10-23] MEDS: FUROSEMIDE 40 MG/4 ML INJECTABLE VIAL IVPB SCH (05:58)
[2023-10-23] MEDS: LEVOTHYROXINE NA 25 MCG TABLET (FP) PO SCH (06:01)
[2023-10-23 08:21] LABS: BASO % 1.6 % (0-2.0); EOS % 0.9 % (0-4.5); HEMATOCRIT 32.6 % (32.4-45.2); HEMOGLOBIN 10.4 GM/dL (10.7-15.3); LYMPH % 14.3 % (8-40); MCH 24.8 pg (25.7-33.7); MCHC 31.9 g/dl (32.0-36.0); MEAN CELL VOLUME 77.8 fl (80-96); MEAN PLT VOLUME 7.6 fl (7.5-11.1); MONO % 14.2 % (3.8-10.2); PLATELET COUNT 167 10^3/uL (134-434); RBC 4.19 M/mm3 (3.60-5.2); RDW 20.6 % (11.6-15.6); WHITE BLOOD COUNT 3.6 K/mm3 (4.0-10.0)
[2023-10-23 08:31] LABS: POTASSIUM 4.1 mmol/L (3.5-5.1)
[2023-10-23 08:41] LABS: CALCIUM 9.1 mg/dL (8.5-10.1)
[2023-10-23 08:42] LABS: ALBUMIN 3.5 g/dl (3.4-5.0); BLOOD UREA NITROGEN 15.2 mg/dL (7-18); MAGNESIUM 1.9 mg/dL (1.8-2.4)
[2023-10-23 08:43] LABS: BILIRUBIN,TOTAL 1.4 mg/dL (0.2-1); TOT PROT 7.2 g/dl (6.4-8.2)
[2023-10-23 08:45] LABS: CREATININE 0.6 mg/dL (0.55-1.3)
[2023-10-23] MEDS: metoPROLOL SUCCINATE 25 MG TAB.SR.24H (FP) PO SCH (09:25)
[2023-10-24 07:38] LABS: POTASSIUM 3.5 mmol/L (3.5-5.1)
[2023-10-24 07:42] LABS: BASO % 1.4 % (0-2.0); EOS % 1.2 % (0-4.5); HEMATOCRIT 31.7 % (32.4-45.2); HEMOGLOBIN 10.1 GM/dL (10.7-15.3); LYMPH % 16.6 % (8-40); MCH 24.3 pg (25.7-33.7); MCHC 31.8 g/dl (32.0-36.0); MEAN CELL VOLUME 76.5 fl (80-96); MEAN PLT VOLUME 7.3 fl (7.5-11.1); MONO % 19.5 % (3.8-10.2); NEUT % 61.3 % (42.8-82.8); PLATELET COUNT 157 10^3/uL (134-434); RBC 4.15 M/mm3 (3.60-5.2); RDW 20.2 % (11.6-15.6); WHITE BLOOD COUNT 2.7 K/mm3 (4.0-10.0)
[2023-10-24 07:46] LABS: ALBUMIN 3.4 g/dl (3.4-5.0)
[2023-10-24 07:47] LABS: BLOOD UREA NITROGEN 17.5 mg/dL (7-18)
[2023-10-24 07:48] LABS: BILIRUBIN,TOTAL 1.3 mg/dL (0.2-1); TOT PROT 6.6 g/dl (6.4-8.2)
[2023-10-24 07:50] LABS: CREATININE 0.6 mg/dL (0.55-1.3)
[2023-10-24] MEDS: metoPROLOL SUCCINATE 25 MG TAB.SR.24H (FP) PO ONE (18:34)
[2023-10-25 07:54] LABS: POTASSIUM 3.5 mmol/L (3.5-5.1)
[2023-10-25 07:59] LABS: CALCIUM 9.5 mg/dL (8.5-10.1)
[2023-10-25 08:00] LABS: BLOOD UREA NITROGEN 14.8 mg/dL (7-18)
[2023-10-25 08:03] LABS: CREATININE 0.7 mg/dL (0.55-1.3)
[2023-10-25 08:15] LABS: HEMATOCRIT 32.5 % (32.4-45.2); HEMOGLOBIN 10.5 GM/dL (10.7-15.3); MCH 24.4 pg (25.7-33.7); MCHC 32.3 g/dl (32.0-36.0); MEAN CELL VOLUME 75.5 fl (80-96); MEAN PLT VOLUME 7.4 fl (7.5-11.1); PLATELET COUNT 178 10^3/uL (134-434); RDW 20.1 % (11.6-15.6)
[2023-10-25 10:12] LABS: ANISOCYTOSIS 1+; MACROCYTOSIS 0
[2023-10-25] MEDS: IRON SUCROSE INJECTION 200 MG in SODIUM CHLORIDE 100 ML IVPB ONE (10:28)
[2023-10-25 18:08] VITALS: BMI 21.0
[2023-10-26 07:35] LABS: HEMATOCRIT 32.7 % (32.4-45.2); HEMOGLOBIN 10.5 GM/dL (10.7-15.3); MCH 24.3 pg (25.7-33.7); MEAN CELL VOLUME 75.8 fl (80-96); MEAN PLT VOLUME 7.1 fl (7.5-11.1); PLATELET COUNT 172 10^3/uL (134-434); RBC 4.31 M/mm3 (3.60-5.2); RDW 20.1 % (11.6-15.6); WHITE BLOOD COUNT 3.1 K/mm3 (4.0-10.0)
[2023-10-26 08:02] LABS: POTASSIUM 3.4 mmol/L (3.5-5.1)
[2023-10-26 08:09] LABS: CALCIUM 8.9 mg/dL (8.5-10.1)
[2023-10-26 08:10] LABS: ALBUMIN 3.3 g/dl (3.4-5.0); BLOOD UREA NITROGEN 14.4 mg/dL (7-18)
[2023-10-26 08:12] LABS: BILIRUBIN,DIRECT 0.4 mg/dL (0.0-0.2)
[2023-10-26 08:14] LABS: BILIRUBIN,TOTAL 1.1 mg/dL (0.2-1); CREATININE 0.6 mg/dL (0.55-1.3); TOT PROT 6.8 g/dl (6.4-8.2)
[2023-10-26] MEDS ORDERED: BENZOCAINE/MENTHOL 1 EACH LOZENGE MM PRN (09:22)
[2023-10-26] MEDS: guaiFENesin 600 MG TABLET.ER (FP) PO SCH (11:50)
[2023-10-26] MEDS: POTASSIUM CHLORIDE ORAL LIQUID 20 MEQ/15 ML PO ONE (15:36)
[2023-10-27 09:26] LABS: ALBUMIN 3.6 g/dl (3.4-5.0); BILIRUBIN,TOTAL 1.3 mg/dL (0.2-1); BLOOD UREA NITROGEN 16.7 mg/dL (7-18); CALCIUM 9.2 mg/dL (8.5-10.1); CREATININE 0.7 mg/dL (0.55-1.3); POTASSIUM 3.9 mmol/L (3.5-5.1); TOT PROT 7.4 g/dl (6.4-8.2)
[2023-10-27] MEDS: PANTOPRAZOLE 40 MG TABLET PO SCH (09:27)
[2023-10-27] MEDS: IRON SUCROSE INJECTION 200 MG in SODIUM CHLORIDE 100 ML IVPB ONE (15:51)
[2023-10-28 02:08] LABS: FIBROSIS SCORE. 0.56 (0.00-0.21); HCV ALPHA 2 MACRO CHART 216 mg/dL (110-276); NECRO.INFLAM ACT.SCORE 0.07 (0.00-0.17); NECROINFLAM. ACTIVITY GRADE A0-No activity (.)
[2023-10-28 15:28] VITALS: BP 123/60; PULSE 77; RESP 18; TEMP 98.6
== END 2023-10-28 18:36 | disposition home or self-care (01) | DRG 291 ==
LOC: JER 12:16 → JERBED 16:32 → J4W 20:32
PROVIDERS: ADMIT Family Medicine; ATTEND Family Medicine
DX: I11.0 Hypertensive heart disease with heart failure (principal); I50.33 Acute on chronic diastolic (congestive) heart failure; J84.9 Interstitial pulmonary disease, unspecified; E87.1 Hypo-osmolality and hyponatremia; E03.9 Hypothyroidism, unspecified; I27.20 Pulmonary hypertension, unspecified; I25.10 Atherosclerotic heart disease of native coronary artery without angina pectoris; D50.9 Iron deficiency anemia, unspecified; K74.60 Unspecified cirrhosis of liver; I48.91 Unspecified atrial fibrillation; F41.9 Anxiety disorder, unspecified; F45.8 Other somatoform disorders; E80.4 Gilbert syndrome
CPT/HCPCS: 0241U-QW; 36415; 71045-TC-FY; 71250-TC; 76700-TC; 80048; 80053; 80061; 82105; 82172; 82248; 82728; 82977; 83010; 83036; 83516; 83540; 83550; 83735; 83880; 83883; 84439; 84443; 84460; 84484; 85025; 85027; 85610; 85730; 86038; 93005; 93010; 93975; 94640; 99285-25; J1644; J1756

== ENCOUNTER 2024-02-05 18:39 | Emergency (ER) | payer OTHER ==
[2024-02-05 19:08] VITALS: BP 136/67; PULSE 70; RESP 18; TEMP 97.2; BMI 22.0
[2024-02-05] MEDS ORDERED: ACETAMINOPHEN 325 MG TABLET (FP) ONE (21:17)
[2024-02-05] MEDS: ACETAMINOPHEN 325 MG TABLET (FP) PO ONE (21:18)
== END 2024-02-05 22:28 | disposition home or self-care (01) ==
LOC: FER 18:39
PROC: 2W3CX1Z Immobilization of Right Lower Arm using Splint (ICD-10-PCS; principal; 2024-02-05)
DX: S42.201A Unspecified fracture of upper end of right humerus, initial encounter for closed fracture (principal); S52.501A Unspecified fracture of the lower end of right radius, initial encounter for closed fracture; S52.611A Displaced fracture of right ulna styloid process, initial encounter for closed fracture; S93.402A Sprain of unspecified ligament of left ankle, initial encounter; W01.198A Fall on same level from slipping, tripping and stumbling with subsequent striking against other object, initial encounter; Y93.01 Activity, walking, marching and hiking
CPT/HCPCS: 71101-TC-RT-FY; 73030-TC-RT-FY; 73070-TC-RT-FY; 73110-TC-RT-FY; 73630-TC-LT; 99284-25